=== PATIENT | female | born 1935 | race Caucasian/White ===

== ENCOUNTER 2016-10-28 07:53 | Observation (INO) | payer MEDICARE, BC ==
[~2016-10-28] VITALS: Ht 157.5 cm; Wt 62.0 kg
[~2016-10-28 07:53] MED LIST: ASPI81 PO; CORE20CA PO; DIAZ5TAB PO; HYDRO10 PO; LEVO.1 PO; LIBRAX PO; LIOT5TAB PO; LORTA5 PO; MECL25CH PO; REME15TA PO; SUMA100T2 PO; TROS60CA PO; WELL150T PO; ZOLO50TA PO; ZOLP5TAB3 PO
[2016-10-28 08:03] VITALS: BP 158/91; PULSE 75; RESP 18; TEMP 98.1; O2SAT 98
--- NOTE | 2016-10-28 08:06 | PD ---
HPI Chief Complaint: General Weakness Time Seen by Provider: 07:56 Travel History International Travel<30 days: No Contact w/Intl Traveler<30days: No Traveled to known affect area: No History of Present Illness HPI Patient is an 79-year-old female brought in by EMS for generalized weakness. Patient's chief complaint is that she's had "the worst flu of her life". Patient states that she's been feeling rundown for the past few days went to the pharmacy and stated that she couldn't take the medicine because she spent more than 2 days of symptoms. States she's been having some cough and congestion but no fevers. Denies any chest pain abdominal pain. Patient states that she went to get up off her couch were slept last night and was unable to walk and called 911. Patient also has some bruising on the left side of her face and when asked about this states that she was walking her dog last night of the night before and her dog pulled her and she tripped and fell face first onto the ground. She did not see a physician for this denies any loss of consciousness. Patient on arrival just states that "I have the worst flu of my life" and I feel very weak. PFSH Past Medical History Hx Anticoagulant Therapy: Yes Asthma: Yes Autoimmune Disease: No Blood Disorders: No Anxiety: Yes Depression: Yes Heart Rhythm Problems: No Cancer: No Cardiac Catheterization: Yes Cardiovascular Problems: Yes High Cholesterol: No Chemotherapy: No Chest Pain: Yes Congestive Heart Failure: No COPD: No Diabetes: No Diminished Hearing: No Diverticulitis: Yes Endocrine: Yes Gastrointestinal Disorders: Yes GERD: Yes Hypertension: Yes Immune Disorder: No Implanted Vascular Access Dvce: No Musculoskeletal: Yes (spinal stenosis, chronic back pain) Neurologic: No Psychiatric: Yes (PTSD) Reproductive: No Respiratory: Yes Myocardial Infarction: No Radiation Therapy: No Sleep Apnea: No Thyroid Disease: Yes (HYPO) Menopausal: Yes Past Surgical History Abdominal Surgery: Yes (COLON RESECTION) Appendectomy: Yes Cholecystectomy: No Genitourinary Surgery: Yes (BLADDER SLING) Gynecologic Surgery: Yes (HYSTERECTEMY) Hysterectomy: Yes Neurologic Surgery: Yes (FUSION C5-C6) Other Surgery: Yes (appendectomy ) Social History Alcohol Use: No (PT DENIES) Tobacco Use: No (PT DENIES) Substance Use: No Allergies-Medications (Allergen,Severity, Reaction): Coded Allergies: Gluten (Verified Allergy, Severe, Cramping, 10/28/16) PT DESCRIBES SEVERE STOMACH CRAMPS AFTER EATING GLUTEN Dairy (Verified Allergy, Mild, Diarrhea, 10/28/16) Demerol (Verified Adverse Reaction, Mild, nausea, 10/28/16) Reported Meds & Prescriptions Reported Meds & Active Scripts Active Hydrocodone/Acetaminophen 5 mg/325 mg 1 Tab Tab 1 Tab PO Q6H PRN Reported Cyproheptadine (Cyproheptadine HCl) 4 Mg Tab 4 Mg PO HS Remeron 15 mg (Mirtazapine) 15 Mg Tab 1 Tab PO HS Diazepam 5 mg (Diazepam) 5 Mg Tab 1 Tab PO DAILY Liothyronine Sodium 5 Mcg Tab 5 Mcg PO DAILY Meclizine Hcl25 M3 25 Mg Chw 12.5 Mg PO Q8H PRN Trospium Chloride ER (Trospium Chloride) 60 Mg Cap 60 Mg PO DAILY Zolpidem Tartrate 5 Mg Tab 5 Mg PO HS Zoloft (Sertraline HCl) 50 Mg Tab 50 Mg PO DAILY Imitrex (Sumatriptan Succinate) 100 Mg Tab 100 Mg PO DIRECTED Synthroid 100 mcg (Levothyroxine Sodium) 100 Mcg Tab 100 Mcg PO DAILY Review of Systems Except as stated in HPI: all other systems reviewed are Neg Physical Exam Narrative GENERAL: Well-developed thin appears pale but in no apparent distress. Obvious bruising the left side of the face. SKIN: Warm and dry. HEAD: No dukes sign there is periorbital ecchymosis which is already healing on the left side on the forehead and on her left cheek. Normocephalic. No laceration. EYES: Pupils equal and round. No scleral icterus. No injection or drainage. ENT: No nasal bleeding or discharge. Mucous membranes pink and moist. NECK: Trachea midline. No JVD. CARDIOVASCULAR: Regular rate and rhythm. RESPIRATORY: No accessory muscle use. Clear to auscultation. Breath sounds equal bilaterally. GASTROINTESTINAL: Abdomen soft, non-tender, nondistended. Hepatic and splenic margins not palpable. MUSCULOSKELETAL: Extremities without clubbing, cyanosis, or edema. No obvious deformities. NEUROLOGICAL: Awake and alert. No obvious cranial nerve deficits. Motor grossly within normal limits. Five out of 5 muscle strength in the arms and legs. Normal speech. PSYCHIATRIC: Appropriate mood and affect; insight and judgment normal. Data Data Last Documented VS Vital Signs Date Time Temp Pulse Resp B/P Pulse Ox O2 Delivery O2 Flow Rate FiO2 10/28/16 08:09 98.1 70 18 158/91 100 Room Air Orders Electrocardiogram (10/28/16 08:02) Complete Blood Count With Diff (10/28/16 08:02) Comprehensive Metabolic Panel (10/28/16 08:02) Creatine Kinase (Cpk) (10/28/16 08:02) Prothrombin Time / Inr (Pt) (10/28/16 08:02) Act Partial Throm Time (Ptt) (10/28/16 08:02) Troponin I (10/28/16 08:02) Thyroid Stimulating Hormone (10/28/16 08:02) Urinalysis - C+S If Indicated (10/28/16 08:02) Chest, Single Ap (10/28/16 08:02) Blood Glucose (10/28/16 08:02) Ecg Monitoring (10/28/16 08:02) Iv Access Insert/Monitor (10/28/16 08:02) Oximetry (10/28/16 08:02) Sodium Chloride 0.9% Flush (Ns Flush) (10/28/16 08:15) Ct Brain W/O Iv Contrast(Rout) (10/28/16 ) Ct Cerv Spine W/O Contrast (10/28/16 ) Sodium Chlor 0.9% 1000 Ml Inj (Ns 1000 M (10/28/16 09:00) Cath For Specimen (10/28/16 08:54) Dexamethasone Inj (Decadron Inj) (10/28/16 09:45) Levothyroxine (Synthroid) (10/28/16 09:45) Potassium Chloride (Kcl) (10/28/16 09:45) Free T3 (10/28/16 09:59) Free Thyroxine (T4) (10/28/16 09:59) Diet Heart Healthy (10/28/16 Lunch) Vital Signs (Adult) SUZANNE.Q4H (10/28/16 10:16) Consult Pt Eval & Treat (10/28/16 10:16) Case Management Consult (10/28/16 ) Ondansetron Inj (Zofran Inj) (10/28/16 10:30) Acetaminophen (Tylenol) (10/28/16 10:30) Admit Order (Ed Use Only) (10/28/16 ) Labs Laboratory Tests Test 10/28/16 10/28/16 08:15 09:05 White Blood Count 8.3 TH/MM3 Red Blood Count 3.75 MIL/MM3 Hemoglobin 11.4 GM/DL Hematocrit 31.8 % Mean Corpuscular Volume 84.9 FL Mean Corpuscular Hemoglobin 30.4 PG Mean Corpuscular Hemoglobin 35.8 % Concent Red Cell Distribution Width 18.4 % Platelet Count 151 TH/MM3 Mean Platelet Volume 9.2 FL Neutrophils (%) (Auto) 92.3 % Lymphocytes (%) (Auto) 4.2 % Monocytes (%) (Auto) 3.1 % Eosinophils (%) (Auto) 0.0 % Basophils (%) (Auto) 0.4 % Neutrophils # (Auto) 7.6 TH/MM3 Lymphocytes # (Auto) 0.3 TH/MM3 Monocytes # (Auto) 0.3 TH/MM3 Eosinophils # (Auto) 0.0 TH/MM3 Basophils # (Auto) 0.0 TH/MM3 CBC Comment DIFF FINAL Differential Comment Prothrombin Time 10.8 SEC Prothromb Time International 1.0 RATIO Ratio Activated Partial 24.6 SEC Thromboplast Time Sodium Level 141 MEQ/L Potassium Level 2.9 MEQ/L Chloride Level 111 MEQ/L Carbon Dioxide Level 20.9 MEQ/L Anion Gap 9 MEQ/L Blood Urea Nitrogen 12 MG/DL Creatinine 1.27 MG/DL Estimat Glomerular Filtration 40 ML/MIN Rate Random Glucose 111 MG/DL Calcium Level 8.7 MG/DL Total Bilirubin 0.5 MG/DL Aspartate Amino Transf 18 U/L (AST/SGOT) Alanine Aminotransferase 21 U/L (ALT/SGPT) Alkaline Phosphatase 66 U/L Total Creatine Kinase 125 U/L Troponin I LESS THAN 0.02 NG/ML Total Protein 6.4 GM/DL Albumin 3.6 GM/DL Free Thyroxine 0.96 NG/DL Free Triiodothyronine (T3) 1.29 PG/ML pg/dL Thyroid Stimulating Hormone 23.700 uIU/ML 3rd Gen Urine Color LIGHT-YELLOW Urine Turbidity CLEAR Urine pH 7.0 Urine Specific [place] 1.004 Urine Protein NEG mg/dL Urine Glucose (UA) NEG mg/dL Urine Ketones NEG mg/dL Urine Occult Blood NEG Urine Nitrite NEG Urine Bilirubin NEG Urine Urobilinogen LESS THAN 2.0 MG/DL Urine Leukocyte Esterase NEG Microscopic Urinalysis Comment CATH-CULT NOT IND MDM Medical Decision Making Medical Screen Exam Complete: Yes Emergency Medical Condition: Yes Interpretation(s) EKG shows sinus rhythm first-degree block with a IN interval of 216. Dilatation V1 limited secondary to motion artifact, normal axis with late R- wave transition. T-wave inversion in V6 Which is new compared to October 2015. This an abnormal EKG. Differential Diagnosis Closed head injury, neck injury, hypothyroidism, electrolyte abnormality, generalized weakness, anemia. Narrative Course Patient was roomed in the emergency department, she is very mildly altered and was seen interacting with unseen stimuli in the room. TSH is elevated vital signs remained stable while in the emergency department. Patient states she's been taking his Synthroid but her physician decreased her dose approximately 3 weeks ago. EMS had to express concerns about safety at home and set her house was in disarray. Patient does have a healing bruise left side of her face but states she's fell yesterday and I have concerns that her history may be limited by her mental status. CT head and C-spine are negative. 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 Turk Diagnosis Primary Impression: Altered mental status Qualified Code: R41.82 - Altered mental status, unspecified altered mental status type Additional Impressions: Weakness Fatigue Qualified Code: R53.83 - Fatigue, unspecified type Hypothyroidism Qualified Code: E03.9 - Hypothyroidism, unspecified type Admitting Information Admitting Physician Requests: Observation Condition: Stable Marty Montalvo MD Oct 28, 2016 08:06
[2016-10-28 08:09] VITALS: BP 158/91; PULSE 70; PULSE 80; RESP 18; TEMP 98.1; O2SAT 100; O2SAT 99
[2016-10-28 08:39] LABS: AUTOMATED NEUTROPHIL # 7.6 TH/MM3 (1.8-7.7); BASOPHIL % 0.4 % (0.0-2.0); HEMATOCRIT 31.8 % (35.0-46.0); HEMO FLAGS DIFF FINAL; LYMPH % 4.2 % (9.0-44.0); LYMPHOCYTE # 0.3 TH/MM3 (1.0-4.8); MEAN CELL VOLUME 84.9 FL (80.0-100.0); MEAN CORPUSCULAR HEMOGLOBIN 30.4 PG (27.0-34.0); MEAN CORPUSCULAR HGB CONC 35.8 % (32.0-36.0); MONO % 3.1 % (0.0-8.0); NEUT % 92.3 % (16.0-70.0); PLATELET COUNT 151 TH/MM3 (150-450); RED BLOOD COUNT 3.75 MIL/MM3 (4.00-5.30); RED CELL DISTRIBUTION WIDTH 18.4 % (11.6-17.2); WHITE BLOOD COUNT 8.3 TH/MM3 (4.0-11.0)
--- NOTE | 2016-10-28 08:50 | RADRPT ---
EXAM DATE/TIME: 10/28/2016 08:09 [facility] COMPARISON: CHEST SINGLE AP, October 07, 2015, 6:03. INDICATIONS : Cough, weakness, fell today MEDICAL HISTORY : Cardiovascular disease. hypertension, asthma SURGICAL HISTORY : appendectomy, hysterectomy, colon resection, cervical fusion ENCOUNTER: Initial ACUITY: 1 day PAIN SCORE: 0/10 LOCATION: Bilateral chest FINDINGS: A single view of the chest demonstrates the lungs to be symmetrically aerated without evidence of mas s, infiltrate or effusion. The cardiomediastinal contours are unremarkable. Osseous structures are intact. CONCLUSION: Normal examination. Charli Dodd MD on October 28, 2016 at 8:48 Board Certified Radiologist. This report was verified electronically.
[2016-10-28 08:58] LABS: APTT (PATIENT) 24.6 SEC (24.3-30.1); PROTHROMBIN TIME - PATIENT 10.8 SEC (9.8-11.6)
[2016-10-28] MEDS ORDERED: SODIUM CHLOR 0.9% 1000 ML INJ 1,000 ML IV ONE (09:00)
[2016-10-28 09:07] LABS: ALKALINE PHOSPHATASE 66 U/L (45-117); ALT (GPT) 21 U/L (10-53); ANION GAP 9 MEQ/L (5-15); AST (GOT) 18 U/L (15-37); BICARBONATE 20.9 MEQ/L (21.0-32.0); BLOOD UREA NITROGEN 12 MG/DL (7-18); CHLORIDE 111 MEQ/L (98-107); CREATINE KINASE 125 U/L (26-192); GLOMERULAR FILTRATION RATE 40 ML/MIN (>89); SODIUM (NA) 141 MEQ/L (136-145); TOTAL BILIRUBIN ADULT 0.5 MG/DL (0.2-1.0)
[2016-10-28 09:09] LABS: POTASSIUM 2.9 MEQ/L (3.5-5.1)
--- NOTE | 2016-10-28 09:15 | RADRPT ---
EXAM DATE/TIME: 10/28/2016 08:31 [facility] COMPARISON: No previous studies available for comparison. INDICATIONS : Trauma. RADIATION DOSE: 56.35 CTDIvol (mGy) MEDICAL HISTORY : Cardiovascular disease. Hypertension. SURGICAL HISTORY : Fusion, cervical. ENCOUNTER: Initial ACUITY: 1 day PAIN SCALE: 0/10 LOCATION: Cranial TECHNIQUE: Multiple contiguous axial images were obtained of the head. Using automated exposure control and adj ustment of the mA and/or kV according to patient size, radiation dose was kept as low as reasonably a chievable to obtain optimal diagnostic quality images. FINDINGS: Noncontrast head CT demonstrates that there is diffuse atrophy present. There is some enlargement of the ventricular system and ischemic demyelinization change bilaterally. It is diffuse and symmetric. No subarachnoid or subdural hematoma is identified. No new areas of encephalomala luis are seen. Bone windows are negative. Sinuses are clear. CONCLUSION: Diffuse atrophy and ischemic demyelinization. Stable since 10/07/15. Charli Dodd MD on October 28, 2016 at 9:01 Board Certified Radiologist. This report was verified electronically.
[2016-10-28 09:39] LABS: BLOOD, URINE NEG (NEG); GLUCOSE,URINE NEG (NEG); KETONE, URINE NEG (NEG); NITRITE,URINE NEG (NEG); URINE COLOR LIGHT-YELLOW (YELLW/STRAW)
[2016-10-28 09:40] LABS: COMMENT (UR) CATH-CULT NOT IND; CULTURE IF INDICATED CATH CULTURE NOT IND
[2016-10-28] MEDS ORDERED: LEVOTHYROXINE SODIUM 100 MCG TAB PO ONE (09:45)
[2016-10-28] MEDS ORDERED: POTASSIUM CHLORIDE 20 MEQ CONTROLLED RELEASE TAB PO ONE ×2 (09:45→13:00)
[2016-10-28] MEDS ORDERED: DEXAMETHASONE SOD PHOS 4 MG/ML VIAL IV PUSH ONE (09:45)
--- NOTE | 2016-10-28 09:53 | RADRPT ---
EXAM DATE/TIME: 10/28/2016 08:31 [facility] COMPARISON: Prior study of November 2014 used for comparison. INDICATIONS : Trauma. Neck pain. RADIATION DOSE: 21.97 CTDIvol (mGy) MEDICAL HISTORY : Cardiovascular disease. Hypertension. SURGICAL HISTORY : Fusion, cervical. ENCOUNTER: Initial ACUITY: 1 day PAIN SCALE: 0/10 LOCATION: Neck TECHNIQUE: Volumetric scanning of the cervical spine was performed. Multiplanar reconstructions in the sagittal, coronal and oblique axial planes were performed. Using automated exposure control and adjustment o f the mA and/or kV according to patient size, radiation dose was kept as low as reasonably achievable to obtain optimal diagnostic quality images. FINDINGS: CT scan of the cervical spine demonstrates that the patient has had previous anterior cervical fusion of C5-C6. There is persistent anterior spondylolisthesis of C3 on C4 and to a lesser extent of C4 o n C5. There is some calcification of the annular ligaments. There is extensive calcification of the transverse ligament. On the right side, there is extensive fusion of the facet joints including right 4-5 and right 2-3. There is a mild leftward scoliosis of the cervical spine. The facet joints are well aligned without evidence of fracture. Soft tissue windows demonstrate no disc herniation or protrusion. The cord is normal in shape. CONCLUSION: The patient has extensive degenerative disc disease with subluxation, stable since November 2014. No ac [place] fracture or endplate injury is identified. No acute fracture is seen.. Charli Dodd MD on October 28, 2016 at 9:03 Board Certified Radiologist. This report was verified electronically.
[2016-10-28] MEDS ORDERED: ACETAMINOPHEN 325 MG TAB PO PRN (10:30)
[2016-10-28] MEDS ORDERED: ONDANSETRON HCL 4 MG/2 ML VIAL IV PUSH PRN (10:30)
[2016-10-28 11:28] LABS: FREE T3 1.29 PG/ML (2.18-3.98); FREE T4 0.96 NG/DL (0.76-1.46)
--- NOTE | 2016-10-28 11:53 | HHI.HP ---
[facility] Service [facility] Primary Care Physician Ramiro Bunch M.D. Admission Diagnosis Hypothryoidism, Altered mental status. Diagnoses: (1) Generalized weakness Diagnosis: Principal (2) Hypokalemia Diagnosis: Principal Chief Complaint: genarlized weakness Travel History International Travel<30 Days: No Contact w/Intl Traveler <30 Da: No Traveled to Known Affected Are: No History of Present Illness patient is a 81 y/o female who presented to ER with generalized weakness. she says that she wasn't able to get up this morning . she says that she normally walks with a cane. she lives alone. she says that three days ago when she was trying to walk her dog, her dog pulled her and she hit her head to the corner of the wall. at the time of my evaluation she was in no acute distress with no reported pain, sob, abdominal pain, chest pain or nausea. Review of Systems Constitutional: COMPLAINS OF: Fatigue, DENIES: Fever, Weight loss, Chills, Night Sweats Eyes: DENIES: Blurred vision, Diplopia, Vision loss, Double Vision Ears, nose, mouth, throat: DENIES: Tinnitus, Vertigo, Throat pain, Epistaxis Respiratory: DENIES: Apneas, Cough, Snoring, Wheezing, Hemoptysis, Sputum production, Shortness of breath Cardiovascular: DENIES: Chest pain, Palpitations, Syncope, Dyspnea on Exertion , PND, Lower Extremity Edema, Orthopnea, Claudication Gastrointestinal: DENIES: Abdominal pain, Black stools, Bloody stools, Constipation, Diarrhea, Nausea, Vomiting, Difficulty Swallowing, Anorexia Genitourinary: DENIES: Urinary frequency, Urgency, Hematuria, Dysuria Musculoskeletal: DENIES: Joint pain, Muscle aches, Stiffness, Joint Swelling Integumentary: DENIES: Rash Neurologic: DENIES: Abnormal gait, Headache, Localized weakness, Paresthesias, Seizures, Speech Problems, Tremor, Poor Balance Psychiatric: DENIES: Anxiety, Confusion, Mood changes, Depression, Hallucinations, Agitation, Suicidal Ideation, Homicidal Ideation, Delusions Past Family Social History Past Medical History Adrenal insufficiency Hypothyroidism Hypertension Asthma Chronic urinary incontinence IBS Anxiety/depression Migraines Past Surgical History Past Surgical History Colectomy, patient states secondary to a "blockage" in the past Appendectomy Hysterectomy Bladder sling placement and removal Cervical fusion Reported Medications Cortef (Hydrocortisone) 10 Mg Tab 5 Mg PO HS 30 Days Cortef (Hydrocortisone) 10 Mg Tab 10 Mg PO DAILY 30 Days Hydrocodone/Acetaminophen 5 mg/325 mg 1 Tab Tab 1 Tab PO Q6H PRN Librax (Chlordiazepoxide/Clidinium) 5 Mg Cap 2.5 Cap PO QID Remeron 15 mg (Mirtazapine) 15 Mg Tab 1 Tab PO HS Diazepam 5 mg (Diazepam) 5 Mg Tab 1 Tab PO DAILY Liothyronine Sodium 5 Mcg Tab 5 Mcg PO DAILY Meclizine Hcl (Meclizine HCl) 25 Mg Chw 12.5 Mg PO Q8H PRN Trospium Chloride ER (Trospium Chloride) 60 Mg Cap 60 Mg PO DAILY Zolpidem Tartrate 5 Mg Tab 5 Mg PO HS Coreg CR 20 mg (Carvedilol CR 20 mg) 20 Mg Cap 1 Cap PO DAILY Wellbutrin Sr (Bupropion HCl) 150 Mg Tab 150 Mg PO BID Zoloft (Sertraline HCl) 50 Mg Tab 50 Mg PO DAILY Imitrex (Sumatriptan Succinate) 100 Mg Tab 100 Mg PO DIRECTED Aspirin 81 Mg Tab 81 Mg PO DAILY Synthroid 100 mcg (Levothyroxine Sodium) 100 Mcg Tab 100 Mcg PO DAILY Allergies: Coded Allergies: Gluten (Verified Allergy, Severe, Cramping, 10/28/16) PT DESCRIBES SEVERE STOMACH CRAMPS AFTER EATING GLUTEN Dairy (Verified Allergy, Mild, Diarrhea, 10/28/16) Demerol (Verified Adverse Reaction, Mild, nausea, 10/28/16) Active Ordered Medications Current Medications IV Flush 2 ml 2 ml UNSCH PRN IVF FLUSH AFTER USING IV ACCESS; Start 10/28/16 at 08:15 Sodium Chloride (NS 1000 ml Inj) 1,000 ml @ 999 mls/hr BOLUS ONCE IV Last administered on 10/28/16 10:25; Start 10/28/16 at 09:00; Stop 10/28/16 at 10:00 ; Status DC Dexamethasone Sodium Phosphate (Decadron Inj) 8 mg ONCE ONCE IV PUSH Last administered on 10/28/16 10:25; Start 10/28/16 at 09:45; Stop 10/28/16 at 09:46 ; Status DC Levothyroxine Sodium (Synthroid) 100 mcg ONCE ONCE PO Last administered on 10:26; Start 10/28/16 at 09:45; Stop 10/28/16 at 09:46; Status DC Potassium Chloride (KCl) 40 meq ONCE ONCE PO Last administered on 10/28/16 10 :26; Start 10/28/16 at 09:45; Stop 10/28/16 at 09:46; Status DC Ondansetron HCl (Zofran Inj) 4 mg Q8HR PRN IV PUSH NAUSEA; Start 10/28/16 at 10 :30 Acetaminophen (Tylenol) 650 mg Q4H PRN PO FEVER; Start 10/28/16 at 10:30 Family History not relevant to this admission. Social History lives alone. no smoking or drinking. Physical Exam Vital Signs Vital Signs Date Time Temp Pulse Resp B/P Pulse Ox O2 Delivery O2 Flow Rate FiO2 10/28/16 08:09 98.1 70 18 158/91 100 Room Air 10/28/16 08:09 98.1 80 18 158/91 99 Room Air 10/28/16 08:09 80 20 98 Room Air 10/28/16 08:03 98.1 75 18 158/91 98 Physical Exam GENERAL: elderly female, in no apparent distress. SKIN: bruise noted on the left periorbital area HEAD:left periorbital ecchymosis EYES: Pupils equal round and reactive. Extraocular motions intact. No scleral icterus. No injection or drainage. ENT: Nose without bleeding, purulent drainage or septal hematoma. Throat without erythema, tonsillar hypertrophy or exudate. Uvula midline. Airway patent. NECK: Trachea midline. No JVD or lymphadenopathy. Supple, nontender, no meningeal signs. CARDIOVASCULAR: Regular rate and rhythm without murmurs, gallops, or rubs. RESPIRATORY: Clear to auscultation. Breath sounds equal bilaterally. No wheezes , rales, or rhonchi. GASTROINTESTINAL: Abdomen soft, non-tender, nondistended. No hepato-splenomegaly , or palpable masses. No guarding. MUSCULOSKELETAL: Extremities without clubbing, cyanosis, or edema. No joint tenderness, effusion, or edema noted. No calf tenderness. Negative Homans sign bilaterally. NEUROLOGICAL: Awake and alert. oriented to person and place but not to time. Laboratory Laboratory Tests Test 10/28/16 10/28/16 08:15 09:05 White Blood Count 8.3 Red Blood Count 3.75 Hemoglobin 11.4 Hematocrit 31.8 Mean Corpuscular Volume 84.9 Mean Corpuscular Hemoglobin 30.4 Mean Corpuscular Hemoglobin 35.8 Concent Red Cell Distribution Width 18.4 Platelet Count 151 Mean Platelet Volume 9.2 Neutrophils (%) (Auto) 92.3 Lymphocytes (%) (Auto) 4.2 Monocytes (%) (Auto) 3.1 Eosinophils (%) (Auto) 0.0 Basophils (%) (Auto) 0.4 Neutrophils # (Auto) 7.6 Lymphocytes # (Auto) 0.3 Monocytes # (Auto) 0.3 Eosinophils # (Auto) 0.0 Basophils # (Auto) 0.0 CBC Comment DIFF FINAL Differential Comment Prothrombin Time 10.8 Prothromb Time International 1.0 Ratio Activated Partial 24.6 Thromboplast Time Sodium Level 141 Potassium Level 2.9 Chloride Level 111 Carbon Dioxide Level 20.9 Anion Gap 9 Blood Urea Nitrogen 12 Creatinine 1.27 Estimat Glomerular Filtration 40 Rate Random Glucose 111 Calcium Level 8.7 Total Bilirubin 0.5 Aspartate Amino Transf 18 (AST/SGOT) Alanine Aminotransferase 21 (ALT/SGPT) Alkaline Phosphatase 66 Total Creatine Kinase 125 Troponin I LESS THAN 0.02 Total Protein 6.4 Albumin 3.6 Free Thyroxine 0.96 Free Triiodothyronine (T3) 1.29 pg/dL Thyroid Stimulating Hormone 23.700 3rd Gen Urine Color LIGHT-YELLOW Urine Turbidity CLEAR Urine pH 7.0 Urine Specific [place] 1.004 Urine Protein NEG Urine Glucose (UA) NEG Urine Ketones NEG Urine Occult Blood NEG Urine Nitrite NEG Urine Bilirubin NEG Urine Urobilinogen LESS THAN 2.0 Urine Leukocyte Esterase NEG Microscopic Urinalysis Comment CATH-CULT NOT IND Result Diagram: 10/28/16 0815 10/28/16 0815 Imaging Last Impressions Chest X-Ray 10/28/16 0802 Signed Impressions: Service Date/Time: Friday, October 28, 2016 08:09 - CONCLUSION: Normal examination. Charli Dodd MD Head CT 10/28/16 0000 Signed Impressions: Service Date/Time: Friday, October 28, 2016 08:31 - CONCLUSION: Diffuse atrophy and ischemic demyelinization. Stable since 10/07/15. Charli Dodd MD Cervical Spine CT 10/28/16 0000 Signed Impressions: Service Date/Time: Friday, October 28, 2016 08:31 - CONCLUSION: The patient has extensive degenerative disc disease with subluxation, stable since November 2014. No acute fracture or endplate injury is identified. No acute fracture is seen.. Charli Dodd MD EKG; sinus rhythm with first-degree AV block. Assessment and Plan Assessment and Plan A/P - generalized weakness with recent fall fall precautions- consult PT and case management -hypokalemia; will replace and monitor -Adrenal insufficiency; resume cortef -Hypothyroidism with elevated TSH- due to noncompliance?- resume home meds- repeat TSH in 4 weeks -Hypertension; resume coreg- will monitor and adjust the regimen as needed. -Asthma- neb treatment as needed. -Anxiety/depression; resume home meds hold diazepam and librax -DVT prophylaxis with SCD's Discussed Condition With ER physician and the patient. Laurie Rahman MD Oct 28, 2016 11:53
[2016-10-28] MEDS ORDERED: ACETAMINOPHEN/HYDROcodone 325 MG/5 MG TAB PO PRN (12:00)
[2016-10-28 12:32] VITALS: BP 138/82
[2016-10-28] MEDS ORDERED: CYPR4TAB PO (14:01)
[2016-10-28 14:04] VITALS: BP 112/57; PULSE 130; RESP 17; TEMP 97.8; O2SAT 96
[2016-10-28] MEDS ORDERED: OMEP20CA2 PO (14:06)
[2016-10-28] MEDS ORDERED: TROS60CA2 PO (14:06)
[2016-10-28] MEDS ORDERED: SYNT88TA PO (14:06)
[2016-10-28] MEDS ORDERED: BECL80AE3 INH (14:06)
[2016-10-28] MEDS ORDERED: ZOLP5TAB3 PO (14:06)
[2016-10-28] MEDS ORDERED: TYLETAB34 PO (14:06)
[2016-10-28] MEDS ORDERED: IMIT100T PO (14:06)
[2016-10-28] MEDS ORDERED: ZOLO50TA PO (14:12)
[2016-10-28] MEDS ORDERED: LIOT5TAB3 PO (14:12)
[2016-10-28] MEDS ORDERED: CORT5TAB PO ×3 (14:12)
[2016-10-28] MEDS ORDERED: HYDR-3535 PO (14:12)
[2016-10-28] MEDS ORDERED: DIAZ5 PO (14:12)
[2016-10-28] MEDS ORDERED: MIRTA15 PO (14:12)
[2016-10-28] MEDS ORDERED: MECL1TAB42 PO (14:12)
[2016-10-28] MEDS ORDERED: BUPR150CR PO (14:16)
[2016-10-28] MEDS ORDERED: ASPI1TAB69 PO (14:16)
[2016-10-28] MEDS ORDERED: CARV20 PO (14:16)
--- NOTE | 2016-10-28 14:50 | EKG ---
Date Performed: 10/28/2016 Time Performed: 09:16:48 PTAGE: 81 years EKG: Sinus rhythm WITH FIRST DEGREE AV BLOCK ANTEROSEPTAL MYOCARDIAL INFARCTION MODERATE T-WAVE ABNORMALITY, CONSIDER LATERAL ISCHEMIA ABNORMAL ECG Compared to the PREVIOUS TRACING , the anterolateral ST-T wave changes are new. Clinical correlation daija l be important. PREVIOUS TRACIN11/24/2015 18.51 DOCTOR: Marlen Barker Interpretating Date/Time 10/28/2016 14:48:16
[2016-10-28 18:59] VITALS: BP 114/61; PULSE 69; RESP 17; TEMP 97.6; O2SAT 100
[2016-10-28] MEDS: MIRTAZAPINE 15 MG TAB PO SCH (21:00)
[2016-10-28] MEDS ORDERED: PILL SPLITTER OTHER PRN (21:00)
[2016-10-28] MEDS: buPROPion HCL 150 MG SUSTAINED RELEASE TAB PO SCH (21:00)
[2016-10-28] MEDS: HYDROCORTISONE 10 MG TAB PO SCH (21:00)
[2016-10-29 04:18] VITALS: BP 138/59; PULSE 62; RESP 14; TEMP 97.3; O2SAT 100
[2016-10-29] MEDS: LEVOTHYROXINE SODIUM 100 MCG TAB PO SCH (06:15)
[2016-10-29 06:55] LABS: BICARBONATE 18.9 MEQ/L (21.0-32.0)
[2016-10-29 07:01] LABS: POTASSIUM 2.8 MEQ/L (3.5-5.1)
[2016-10-29 08:36] VITALS: BP 162/68; PULSE 69; RESP 20; TEMP 97.9; O2SAT 95
[2016-10-29] MEDS: HYDROCORTISONE 10 MG TAB PO SCH ×2 (08:40→22:30)
[2016-10-29] MEDS: buPROPion HCL 150 MG SUSTAINED RELEASE TAB PO SCH ×2 (08:40→22:31)
[2016-10-29] MEDS: SODIUM CHLORIDE 0.9% FLUSH 5 ML FLUSH IVF PRN (08:40)
[2016-10-29] MEDS: SERTRALINE HCL 50 MG TAB PO SCH (08:40)
[2016-10-29] MEDS: TOLTERODINE TARTRATE 4 MG CAP LA PO SCH (08:40)
[2016-10-29] MEDS: LIOTHYRONINE SODIUM 5 MCG TAB PO SCH (08:40)
[2016-10-29] MEDS: CARVEDILOL 6.25 MG TAB PO SCH ×2 (08:40→22:30)
--- NOTE | 2016-10-29 10:55 | HHI.PR ---
Subjective Remarks in no acute distress. denies pain. no new complaints. Objective Vitals Vital Signs Date Time Temp Pulse Resp B/P Pulse Ox O2 Delivery O2 Flow Rate FiO2 10/29/16 08:36 97.9 69 20 162/68 95 10/29/16 04:18 97.3 62 14 138/59 100 10/28/16 18:59 97.6 69 17 114/61 100 10/28/16 14:04 97.8 130 17 112/57 96 10/28/16 12:32 86 18 138/82 98 Result Diagram: 10/28/16 0815 10/29/16 0533 Imaging Last Impressions Chest X-Ray 10/28/16 0802 Signed Impressions: Service Date/Time: Friday, October 28, 2016 08:09 - CONCLUSION: Normal examination. Charli Dodd MD Head CT 10/28/16 0000 Signed Impressions: Service Date/Time: Friday, October 28, 2016 08:31 - CONCLUSION: Diffuse atrophy and ischemic demyelinization. Stable since 10/07/15. Charli Dodd MD Cervical Spine CT 10/28/16 0000 Signed Impressions: Service Date/Time: Friday, October 28, 2016 08:31 - CONCLUSION: The patient has extensive degenerative disc disease with subluxation, stable since November 2014. No acute fracture or endplate injury is identified. No acute fracture is seen.. Charli Dodd MD Objective Remarks GENERAL: This is a well-nourished, well-developed patient, in no apparent distress. CARDIOVASCULAR: Regular rate and regular rhythm without murmurs, gallops, or rubs. RESPIRATORY: Clear to auscultation. Breath sounds equal bilaterally. No wheezes , rales, or rhonchi. GASTROINTESTINAL: Abdomen soft, non-tender, nondistended. Normal, active bowel sounds MUSCULOSKELETAL: Extremities without clubbing, cyanosis, or edema. NEURO: awake and alert. Procedures none Medications and IVs Current Medications IV Flush 2 ml 2 ml UNSCH PRN IVF FLUSH AFTER USING IV ACCESS Last administered on 10/29/16 08:40; Start 10/28/16 at 08:15 Sodium Chloride (NS 1000 ml Inj) 1,000 ml @ 999 mls/hr BOLUS ONCE IV Last administered on 10/28/16 10:25; Start 10/28/16 at 09:00; Stop 10/28/16 at 10:00 ; Status DC Dexamethasone Sodium Phosphate (Decadron Inj) 8 mg ONCE ONCE IV PUSH Last administered on 10/28/16 10:25; Start 10/28/16 at 09:45; Stop 10/28/16 at 09:46 ; Status DC Levothyroxine Sodium (Synthroid) 100 mcg ONCE ONCE PO Last administered on 10:26; Start 10/28/16 at 09:45; Stop 10/28/16 at 09:46; Status DC Potassium Chloride (KCl) 40 meq ONCE ONCE PO Last administered on 10/28/16 10 :26; Start 10/28/16 at 09:45; Stop 10/28/16 at 09:46; Status DC Ondansetron HCl (Zofran Inj) 4 mg Q8HR PRN IV PUSH NAUSEA; Start 10/28/16 at 10 :30 Acetaminophen (Tylenol) 650 mg Q4H PRN PO FEVER/ PAIN < 5; Start 10/28/16 at 10 :30 Potassium Chloride (KCl) 40 meq ONCE ONCE PO Last administered on 10/28/16 14 :00; Start 10/28/16 at 13:00; Stop 10/28/16 at 13:01; Status DC Bupropion HCl (Wellbutrin Sr) 150 mg BID PO Last administered on 10/29/16 08:40 ; Start 10/28/16 at 21:00 Liothyronine Sodium (Cytomel) 5 mcg DAILY PO Last administered on 10/29/16 08: 40; Start 10/29/16 at 09:00 Mirtazapine (Remeron) 15 mg HS PO Last administered on 10/28/16 21:00; Start 10/28/16 at 21:00 Sertraline HCl (Zoloft) 50 mg DAILY PO Last administered on 10/29/16 08:40; Start 10/29/16 at 09:00 Levothyroxine Sodium (Synthroid) 100 mcg DAILY@06 PO Last administered on 06:15; Start 10/29/16 at 06:00 Carvedilol (Coreg) 6.25 mg BID PO Last administered on 10/29/16 08:40; Start at 09:00 Hydrocortisone (Cortef) 5 mg HS PO Last administered on 10/28/16 21:00; Start 10/28/16 at 21:00 Hydrocortisone (Cortef) 10 mg DAILY PO Last administered on 10/29/16 08:40; Start 10/29/16 at 09:00 Tolterodine Tartrate (Detrol La) 4 mg DAILY PO Last administered on 10/29/16 08 :40; Start 10/29/16 at 09:00 Acetaminophen/ Hydrocodone Bitart ([place] 5-325 Mg) 1 tab Q6H PRN PO PAIN >5; Start 10/28/16 at 12:00 Miscellaneous (Pill Splitter) 1 ea UNSCH PRN OTHER SEE LABEL COMMENTS; Start at 21:00 A/P Assessment and Plan A/P - generalized weakness with recent fall fall precautions- consulted PT and case management -hypokalemia; will replace and monitor- check magnesium level -Adrenal insufficiency; resumed cortef -Hypothyroidism with elevated TSH- due to noncompliance?- resumed home meds- repeat TSH in 4 weeks -Hypertension; resumed coreg- will monitor and adjust the regimen as needed. -Asthma- neb treatment as needed. -Anxiety/depression; resumed home meds hold diazepam and librax -DVT prophylaxis with SCD's Discharge Planning possible dc home tomorrow if stable. rehab was offered but the patient declined. case management for [facility]. Laurie Rahman MD Oct 29, 2016 10:55
--- NOTE | 2016-10-29 10:57 | HHI.FF ---
Face to Face Verification Diagnosis: (1) Generalized weakness (2) Hypokalemia Physical Therapy Order: Evaluate and Treat Home Health Nursing Order: Medical education Signs/symptoms of disease process Nursing assessment with vital signs School Bus Aide Order: To Evaluate: Living conditions/environment I have seen patient Pastora Mckeon on 10/29/16. My clinical findings support the need for the requested home health care services because: Ltd mobility - disease progression I certify that my clinical findings support that this patient is homebound because: Unsteady gait/balance Laurie Rahman MD Oct 29, 2016 10:57
[2016-10-29] MEDS ORDERED: SODIUM CHLORID 0.9% 500 ML INJ 500 ML IV ONE (11:00)
[2016-10-29] MEDS ORDERED: POTASSIUM CHLORIDE 10 MEQ CONTROLLED RELEASE TAB PO ONE ×2 (11:00→15:00)
[2016-10-29] MEDS ORDERED: POTASSIUM CHLOR 20 MEQ PREMIX 100 ML IV ONE (11:00)
[2016-10-29 11:53] VITALS: BP 143/64; PULSE 71; RESP 20; TEMP 97; O2SAT 100
[2016-10-29 17:54] VITALS: BP 143/62; PULSE 69; RESP 21; TEMP 98; O2SAT 98
[2016-10-29 20:31] VITALS: BP 115/58; PULSE 75; RESP 18; TEMP 97.5; O2SAT 97
[2016-10-29] MEDS: MIRTAZAPINE 15 MG TAB PO SCH (22:31)
[2016-10-30 00:47] VITALS: BP 118/57; PULSE 67; RESP 16; TEMP 98; O2SAT 97
[2016-10-30] MEDS: LEVOTHYROXINE SODIUM 100 MCG TAB PO SCH (06:09)
[2016-10-30 06:15] VITALS: BP 134/64; PULSE 76; RESP 18; TEMP 97.6; O2SAT 97
[2016-10-30 06:45] LABS: BICARBONATE 20.1 MEQ/L (21.0-32.0); POTASSIUM 3.6 MEQ/L (3.5-5.1)
[2016-10-30] MEDS: buPROPion HCL 150 MG SUSTAINED RELEASE TAB PO SCH (09:41)
[2016-10-30] MEDS: CARVEDILOL 6.25 MG TAB PO SCH (09:41)
[2016-10-30] MEDS: SERTRALINE HCL 50 MG TAB PO SCH (09:41)
[2016-10-30] MEDS: HYDROCORTISONE 10 MG TAB PO SCH (09:41)
[2016-10-30] MEDS: TOLTERODINE TARTRATE 4 MG CAP LA PO SCH (09:41)
[2016-10-30] MEDS: LIOTHYRONINE SODIUM 5 MCG TAB PO SCH (09:41)
[2016-10-30] MEDS: SODIUM CHLORIDE 0.9% FLUSH 5 ML FLUSH IVF PRN (09:42)
--- NOTE | 2016-10-30 11:07 | HHI.PR ---
Subjective Remarks resting comfortably with no distress. denies pain. no new complaints. Objective Vitals Vital Signs Date Time Temp Pulse Resp B/P Pulse Ox O2 Delivery O2 Flow Rate FiO2 10/30/16 06:15 97.6 76 18 134/64 97 10/30/16 00:47 98.0 67 16 118/57 97 10/29/16 20:31 97.5 75 18 115/58 97 10/29/16 17:54 98.0 69 21 143/62 98 10/29/16 11:53 97.0 71 20 143/64 100 Result Diagram: 10/28/16 0815 10/30/16 0537 Imaging Last Impressions Chest X-Ray 10/28/16 0802 Signed Impressions: Service Date/Time: Friday, October 28, 2016 08:09 - CONCLUSION: Normal examination. Charli Dodd MD Head CT 10/28/16 0000 Signed Impressions: Service Date/Time: Friday, October 28, 2016 08:31 - CONCLUSION: Diffuse atrophy and ischemic demyelinization. Stable since 10/07/15. Charli Dodd MD Cervical Spine CT 10/28/16 0000 Signed Impressions: Service Date/Time: Friday, October 28, 2016 08:31 - CONCLUSION: The patient has extensive degenerative disc disease with subluxation, stable since November 2014. No acute fracture or endplate injury is identified. No acute fracture is seen.. Charli Dodd MD Objective Remarks GENERAL: This is a well-nourished, well-developed patient, in no apparent distress. CARDIOVASCULAR: Regular rate and regular rhythm without murmurs, gallops, or rubs. RESPIRATORY: Clear to auscultation. Breath sounds equal bilaterally. No wheezes , rales, or rhonchi. GASTROINTESTINAL: Abdomen soft, non-tender, nondistended. Normal, active bowel sounds MUSCULOSKELETAL: Extremities without clubbing, cyanosis, or edema. NEURO: awake and alert. Procedures none Medications and IVs Current Medications IV Flush 2 ml 2 ml UNSCH PRN IVF FLUSH AFTER USING IV ACCESS Last administered on 10/30/16 09:42; Start 10/28/16 at 08:15 Sodium Chloride (NS 1000 ml Inj) 1,000 ml @ 999 mls/hr BOLUS ONCE IV Last administered on 10/28/16 10:25; Start 10/28/16 at 09:00; Stop 10/28/16 at 10:00 ; Status DC Dexamethasone Sodium Phosphate (Decadron Inj) 8 mg ONCE ONCE IV PUSH Last administered on 10/28/16 10:25; Start 10/28/16 at 09:45; Stop 10/28/16 at 09:46 ; Status DC Levothyroxine Sodium (Synthroid) 100 mcg ONCE ONCE PO Last administered on 10:26; Start 10/28/16 at 09:45; Stop 10/28/16 at 09:46; Status DC Potassium Chloride (KCl) 40 meq ONCE ONCE PO Last administered on 10/28/16 10 :26; Start 10/28/16 at 09:45; Stop 10/28/16 at 09:46; Status DC Ondansetron HCl (Zofran Inj) 4 mg Q8HR PRN IV PUSH NAUSEA; Start 10/28/16 at 10 :30 Acetaminophen (Tylenol) 650 mg Q4H PRN PO FEVER/ PAIN < 5; Start 10/28/16 at 10 :30 Potassium Chloride (KCl) 40 meq ONCE ONCE PO Last administered on 10/28/16 14 :00; Start 10/28/16 at 13:00; Stop 10/28/16 at 13:01; Status DC Bupropion HCl (Wellbutrin Sr) 150 mg BID PO Last administered on 10/30/16 09:41 ; Start 10/28/16 at 21:00 Liothyronine Sodium (Cytomel) 5 mcg DAILY PO Last administered on 10/30/16 09: 41; Start 10/29/16 at 09:00 Mirtazapine (Remeron) 15 mg HS PO Last administered on 10/29/16 22:31; Start at 21:00 Sertraline HCl (Zoloft) 50 mg DAILY PO Last administered on 10/30/16 09:41; Start 10/29/16 at 09:00 Levothyroxine Sodium (Synthroid) 100 mcg DAILY@06 PO Last administered on 06:09; Start 10/29/16 at 06:00 Carvedilol (Coreg) 6.25 mg BID PO Last administered on 10/30/16 09:41; Start at 09:00 Hydrocortisone (Cortef) 5 mg HS PO Last administered on 10/29/16 22:30; Start 10/28/16 at 21:00 Hydrocortisone (Cortef) 10 mg DAILY PO Last administered on 10/30/16 09:41; Start 10/29/16 at 09:00 Tolterodine Tartrate (Detrol La) 4 mg DAILY PO Last administered on 10/30/16 09 :41; Start 10/29/16 at 09:00 Acetaminophen/ Hydrocodone Bitart ([place] 5-325 Mg) 1 tab Q6H PRN PO PAIN >5; Start 10/28/16 at 12:00 Miscellaneous 1 ea 1 ea UNSCH PRN OTHER SEE LABEL COMMENTS; Start 10/28/16 at 21:00 Potassium Chloride (KCl 20 Meq Premix Inj) 100 ml @ 50 mls/hr BOLUS ONCE IV Last administered on 10/29/16 11:37; Start 10/29/16 at 11:00; Stop 10/29/16 at 12: 59; Status DC Potassium Chloride (KCl) 40 meq ONCE ONCE PO Last administered on 10/29/16 11: 38; Start 10/29/16 at 11:00; Stop 10/29/16 at 11:04; Status DC Potassium Chloride 40 meq 40 meq ONCE ONCE PO Last administered on 10/29/16 14 :13; Start 10/29/16 at 15:00; Stop 10/29/16 at 15:01; Status DC Sodium Chloride (NS 500 ml Inj) 500 ml @ 50 mls/hr Q10H ONCE IV Last administered on 10/29/16 11:37; Start 10/29/16 at 11:00; Stop 10/29/16 at 20:59; Status DC A/P Assessment and Plan A/P - generalized weakness with recent fall fall precautions- consulted PT and case management -hypokalemia;replaced. -Adrenal insufficiency; resumed cortef -Hypothyroidism with elevated TSH- due to noncompliance?- resumed home meds- repeat TSH in 4 weeks- f/u as outpatient with pcp. -Hypertension; resumed coreg- will monitor and adjust the regimen as needed. -Asthma- neb treatment as needed. -Anxiety/depression; resumed home meds hold diazepam and librax -DVT prophylaxis with SCD's Discharge Planning dc home with C today. rehab was offered but the patient declined. case management for [facility]. see med list. f/u by pcp. d/w the patient and RN. Laurie Rahman MD Oct 30, 2016 11:06
[2016-10-30] MEDS ORDERED: ASPI1TAB69 PO (11:09)
--- NOTE | 2016-10-30 11:10 | HHI.DS ---
Discharge Summary Admission Date Oct 28, 2016 at 10:42 Discharge Date: Oct 30, 2016 Admitting Diagnosis Hypothryoidism, Altered mental status. (1) Generalized weakness ICD Code: R53.1 Diagnosis: Principal (2) Hypokalemia ICD Code: E87.6 Diagnosis: Principal Procedures none Brief History - From Admission patient is a 81 y/o female who presented to ER with generalized weakness. she says that she wasn't able to get up this morning . she says that she normally walks with a cane. she lives alone. she says that three days ago when she was trying to walk her dog, her dog pulled her and she hit her head to the corner of the wall. at the time of my evaluation she was in no acute distress with no reported pain, sob, abdominal pain, chest pain or nausea. CBC/BMP: 10/28/16 0815 10/30/16 0537 Significant Findings Laboratory Tests Test 10/28/16 10/29/16 10/30/16 08:15 05:33 05:37 Red Blood Count 3.75 MIL/MM3 (4.00-5.30) Hemoglobin 11.4 GM/DL (11.6-15.3) Hematocrit 31.8 % (35.0-46.0) Red Cell Distribution Width 18.4 % (11.6-17.2) Neutrophils (%) (Auto) 92.3 % (16.0-70.0) Lymphocytes (%) (Auto) 4.2 % (9.0-44.0) Lymphocytes # (Auto) 0.3 TH/MM3 (1.0-4.8) Potassium Level 2.9 MEQ/L 2.8 MEQ/L (3.5-5.1) (3.5-5.1) Chloride Level 111 MEQ/L 111 MEQ/L 116 MEQ/L (98-107) (98-107) (98-107) Carbon Dioxide Level 20.9 MEQ/L 18.9 MEQ/L 20.1 MEQ/L (21.0-32.0) (21.0-32.0) (21.0-32.0) Creatinine 1.27 MG/DL (0.50-1.00) Estimat Glomerular Filtration 40 ML/MIN (>89) 54 ML/MIN (>89) 58 ML/MIN (>89) Rate Random Glucose 111 MG/DL (74-106) Troponin I LESS THAN 0.02 NG/ML (0.02-0.05) Free Triiodothyronine (T3) 1.29 PG/ML pg/dL (2.18-3.98) Thyroid Stimulating Hormone 23.700 uIU/ML 3rd Gen (0.358-3.740) Calcium Level 8.2 MG/DL 8.1 MG/DL (8.5-10.1) (8.5-10.1) Imaging Last Impressions Chest X-Ray 10/28/16 0802 Signed Impressions: Service Date/Time: Friday, October 28, 2016 08:09 - CONCLUSION: Normal examination. Charli Dodd MD Head CT 10/28/16 0000 Signed Impressions: Service Date/Time: Friday, October 28, 2016 08:31 - CONCLUSION: Diffuse atrophy and ischemic demyelinization. Stable since 10/07/15. Charli Dodd MD Cervical Spine CT 10/28/16 0000 Signed Impressions: Service Date/Time: Friday, October 28, 2016 08:31 - CONCLUSION: The patient has extensive degenerative disc disease with subluxation, stable since November 2014. No acute fracture or endplate injury is identified. No acute fracture is seen.. Charli Dodd MD PE at Discharge GENERAL: This is a well-nourished, well-developed patient, in no apparent distress. CARDIOVASCULAR: Regular rate and regular rhythm without murmurs, gallops, or rubs. RESPIRATORY: Clear to auscultation. Breath sounds equal bilaterally. No wheezes , rales, or rhonchi. GASTROINTESTINAL: Abdomen soft, non-tender, nondistended. Normal, active bowel sounds MUSCULOSKELETAL: Extremities without clubbing, cyanosis, or edema. NEURO: awake and alert. Hospital Course - generalized weakness with recent fall fall precautions- consulted PT and case management -hypokalemia;replaced. -Adrenal insufficiency; resumed cortef -Hypothyroidism with elevated TSH- due to noncompliance?- resumed home meds- repeat TSH in 4 weeks- f/u as outpatient with pcp. -Hypertension; resumed coreg- will monitor and adjust the regimen as needed. -Asthma- neb treatment as needed. -Anxiety/depression; resumed home meds hold diazepam and librax -DVT prophylaxis with SCD's Pt Condition on Discharge: Good Discharge Disposition: Disch w/ Home Health Serv Discharge Time: <= 30 minutes Discharge Instructions DIET: Follow Instructions for: Heart Healthy Diet Activities you can perform: Regular-No Restrictions Follow up Referrals: PCP Follow-up Changed Medications: Aspirin (Aspirin) 81 Mg Tabdr 81 MG PO DAILY resume in five days. antiplatelet Days 30 TAB (Medication details modified) Continued Medications: Beclomethasone Inh (Qvar Inh) 80 Mcg/Act Aero 1 PUFF INH BID Asthma Management #1 Ref 0 INHALER Bupropion HCl ER 12 HR (Wellbutrin SR 12 HR) 150 Mg Tab 150 MG PO Q12HR Control Depression Ref 0 TAB Carvedilol ER 24 HR (Coreg Cr 24 HR) 20 Mg Cap 20 MG PO DAILY #30 Ref 0 CAP Hydrocodone-Acetaminophen (Lortab) 10-325 Mg Tab 1 TAB PO Q6H PRN MIGRAINE HEADACHE Ref 0 TAB Hydrocortisone (Cortef) 5 Mg Tab 12.5 MG PO DAILY IN THE MORNING Take with food to decrease GI upset ADRENAL INSUFFICIENCY #30 Ref 0 TAB Hydrocortisone (Cortef) 5 Mg Tab 5 MG PO DAILY @ 1200 Take with food to decrease GI upset ADRENAL INSUFFICIENCY # 30 Ref 0 TAB Hydrocortisone (Cortef) 5 Mg Tab 2.5 MG PO HS Take with food to decrease GI upset ADRENAL INSUFFICIENCY #60 Ref 0 TAB Levothyroxine (Synthroid) 88 Mcg Tab 88 MCG PO DAILY Thyroid #30 Ref 0 TAB Liothyronine (Liothyronine) 5 Mcg Tab 5 MCG PO DAILY Thyroid Supplement #30 Ref 0 TAB Meclizine HCl (Meclizine 25) 25 Mg Tab 25 MG PO BID PRN VERTIGO Mirtazapine (Mirtazapine) 15 Mg Tab 15 MG PO HS Depression Control #30 Ref 0 TAB Omeprazole (Omeprazole) 20 Mg Cap 20 MG PO DAILY Sertraline (Zoloft) 50 Mg Tab 50 MG PO DAILY #30 Ref 0 TAB Sumatriptan (Imitrex) 100 Mg Tab 100 MG PO DIRECTED If a satisfactory response has not been obtained at 2 hours, a second dose may be administered PRN MIGRAINE HEADACHE Ref 0 TAB Trospium ER (Trospium ER) 60 Mg Cap 60 MG PO DAILY Urinary Symptom Managemen #30 Ref 0 CAP Discontinued Medications: Acetaminophen-Codeine (Tylenol-Codeine #3) 300-30 mg Tab 1 TAB PO Q6HR PRN PAIN Ref 0 TAB Cyproheptadine (Cyproheptadine) 4 Mg Tab 4 MG PO HS #90 Ref 0 TAB Diazepam (Valium) 5 Mg Tab 5 MG PO DAILY PRN ANXIETY Ref 0 TAB Zolpidem (Zolpidem) 5 Mg Tab 5 MG PO HS PRN INSOMNIA Ref 0 TAB Laurie Rahman MD Oct 30, 2016 11:10
--- NOTE | 2016-10-30 11:10 | HHI.DCPOC ---
Discharge Care Plan Diagnosis: (1) Falls frequently Your Health Problems Are: Difficulty with ADL Goals to Promote Your Health * To prevent worsening of your condition and complications * To maintain your health at the optimal level Directions to Meet Your Goals Take your medications as prescribed Follow your dietary instruction Follow activity as directed Keep your appointments as scheduled Take your immunizations and boosters as scheduled If your symptoms worsen call your PCP, if no PCP go to Urgent Care Center or Emergency Room Smoking is Dangerous to Your Health. Avoid second hand smoke Call the 24-hour hour crisis hotline for domestic abuse at Laurie Rahman MD Oct 30, 2016 11:10
[2016-10-30 11:20] VITALS: BP 145/70; PULSE 71; RESP 20; TEMP 97.7; O2SAT 94
== END 2016-10-30 15:10 | disposition home or self-care (01) ==
LOC: NEPE 07:53 → NEDA 10:42 → NEPFCDU 14:01
PROVIDERS: ADMIT Internal Medicine; ATTEND Internal Medicine
DX: R53.1 Weakness (principal); E03.9 Hypothyroidism, unspecified; E87.6 Hypokalemia; R41.82 Altered mental status, unspecified; R53.83 Other fatigue; I10 Essential (primary) hypertension; J45.909 Unspecified asthma, uncomplicated; K21.9 Gastro-esophageal reflux disease without esophagitis; F41.8 Other specified anxiety disorders; Z79.01 Long term (current) use of anticoagulants; R94.31 Abnormal electrocardiogram [ECG] [EKG]
CPT/HCPCS: 70450; 71010; 72125; 80048; 80053; 81001; 82550; 83735; 84439; 84443; 84481; 84484; 85025; 85610; 85730; 93005; 96374; 97162; 99285; G0378; G8987; G8988; J1100; J3480; J7030; J7040

== ENCOUNTER 2017-05-19 14:48 | Inpatient (IN) | payer MEDICARE, BC ==
[~2017-05-19] VITALS: Ht 158.8 cm; Wt 51.0 kg
[2017-05-19] VITALS (7 sets, daily range): BP systolic 116–158; BP diastolic 61–86; PULSE 83–94; RESP 16–20; TEMP 96.7–98.5; O2SAT 95–100
[~2017-05-19 14:48] MED LIST changes: +ASPI1TAB69 PO; -ASPI81 PO; +BECL80AE3 INH; +BUPR150CR PO; +CARV20 PO; -CORE20CA PO; +CORT5TAB PO; +DIAZ5 PO; -DIAZ5TAB PO; +HYDR-3535 PO; -HYDRO10 PO; +IMIT100T PO; -LEVO.1 PO; -LIBRAX PO; -LIOT5TAB PO; +LIOT5TAB3 PO; -LORTA5 PO; +MECL1TAB42 PO; -MECL25CH PO; +MIRTA15 PO; +OMEP20CA2 PO; -REME15TA PO; -SUMA100T2 PO; +SYNT88TA PO; -TROS60CA PO; +TROS60CA2 PO; -WELL150T PO; -ZOLP5TAB3 PO
[2017-05-19] MEDS ORDERED: POTA10CA PO (15:09)
[2017-05-19] MEDS ORDERED: HYDROmorphone HCL PF 1 MG/ML VIAL IV PUSH ONE (15:15)
[2017-05-19] MEDS ORDERED: ONDANSETRON HCL 4 MG/2 ML VIAL IV PUSH ONE (15:15)
--- NOTE | 2017-05-19 15:17 | PD ---
HPI Chief Complaint: Fall Time Seen by Provider: 15:03 Travel History International Travel<30 days: No Contact w/Intl Traveler<30days: No Traveled to known affect area: No History of Present Illness HPI 81- year old female with a PMHx of adrenal insufficiency, asthma, and leaky valve brought to the ED by [facility] complaining of left wrist pain. The patient reports she was getting up to sit on a "swirly chair." When going to sit in the chair she states she fell off, with this incident happening about one hour ago. She reports she then fell on her left side including her head and wrist. She reports the pain in her left arm is a 7/10 and the patient received Morphine 10 mg en route to hospital. The patient denies any chest pain, shortness of breath , nausea, vomiting, or diarrhea, headache. She reports aspirin use but denies any blood thinners. PFSH Past Medical History Hx Anticoagulant Therapy: Yes Asthma: Yes Autoimmune Disease: No Blood Disorders: No Anxiety: Yes Depression: Yes Heart Rhythm Problems: No Cancer: No Cardiac Catheterization: Yes Cardiovascular Problems: Yes High Cholesterol: No Chemotherapy: No Chest Pain: Yes Congestive Heart Failure: No COPD: No Diabetes: No Diminished Hearing: No Diverticulitis: Yes Endocrine: Yes Gastrointestinal Disorders: Yes GERD: Yes Hypertension: Yes Immune Disorder: No Implanted Vascular Access Dvce: No Musculoskeletal: Yes (spinal stenosis, chronic back pain) Neurologic: No Psychiatric: Yes (PTSD) Reproductive: No Respiratory: Yes Myocardial Infarction: No Radiation Therapy: No Sleep Apnea: No Thyroid Disease: Yes (HYPO) Menopausal: Yes Past Surgical History Abdominal Surgery: Yes (COLON RESECTION) Appendectomy: Yes Cholecystectomy: No Genitourinary Surgery: Yes (BLADDER SLING) Gynecologic Surgery: Yes (HYSTERECTEMY) Hysterectomy: Yes Neurologic Surgery: Yes (FUSION C5-C6) Other Surgery: Yes (appendectomy ) Social History Alcohol Use: No (PT DENIES) Tobacco Use: No (PT DENIES) Substance Use: No Allergies-Medications (Allergen,Severity, Reaction): Coded Allergies: gluten (Unverified Allergy, Severe, Cramping, 05/19/17) PT DESCRIBES SEVERE STOMACH CRAMPS AFTER EATING GLUTEN lactose (Unverified Allergy, Mild, Diarrhea, 05/19/17) meperidine (Unverified Adverse Reaction, Mild, nausea, 05/19/17) Reported Meds & Prescriptions Reported Meds & Active Scripts Active Reported Potassium Chloride ER (Potassium Chloride) 10 Meq Cap Unknown Dose PO DAILY Wellbutrin SR 12 HR (Bupropion HCl) 150 Mg Tab 150 Mg PO Q12HR Coreg Cr 24 HR (Carvedilol) 20 Mg Cap 20 Mg PO DAILY Cortef (Hydrocortisone) 5 Mg Tab 2.5 Mg PO HS Take with food to decrease GI upset Cortef (Hydrocortisone) 5 Mg Tab 5 Mg PO DAILY @ 1200 Take with food to decrease GI upset Cortef (Hydrocortisone) 5 Mg Tab 12.5 Mg PO DAILY IN THE MORNING Take with food to decrease GI upset Valium (Diazepam) 5 Mg Tab 5 Mg PO DAILY PRN Lortab (Hydrocodone-Acetaminophen) 10-325 Mg Tab 1 Tab PO Q6H PRN Meclizine 25 (Meclizine HCl) 25 Mg Tab 25 Mg PO BID PRN Liothyronine (Liothyronine Sodium) 5 Mcg Tab 5 Mcg PO DAILY Mirtazapine 15 Mg Tab 15 Mg PO HS Zoloft (Sertraline HCl) 50 Mg Tab 50 Mg PO DAILY Imitrex (Sumatriptan Succinate) 100 Mg Tab 100 Mg PO DIRECTED PRN If a satisfactory response has not been obtained at 2 hours, a second dose may be administered Synthroid (Levothyroxine Sodium) 88 Mcg Tab 88 Mcg PO DAILY Trospium ER 60 Mg Cap 60 Mg PO DAILY Qvar Inh (Beclomethasone Dipropionate) 80 Mcg/Act Aero 1 Puff INH BID Omeprazole 20 Mg Cap 20 Mg PO DAILY Review of Systems General / Constitutional: No: Fever, Chills, Weight Gain, Weight Loss, Other Eyes: No: Diploplia, Blurred Vision, Photophobia, Drainage, Redness, Foreign Body Sensation, Pain, Tearing, Blind Spots, Visual changes, Blindness, Other HENT: No: Headaches, Vertigo, Lightheadedness, Sore Throat, Rhinitis, Rhinorrhea, Congestion, Nosebleed, Neck Stiffness, Neck Pain, Masses, Gingival Bleeding, Dental Difficulties, Ear Discharge, Earache, Other Cardiovascular: No: Chest Pain or Discomfort, Palpitations, Irregular Rhythm, Tachycardia, Diaphoresis, Syncope, Dyspnea on exertion, Varicosities, Edema, Cyanosis, Varicosities, Phlebitis, Claudication, Other Respiratory: No: Cough, Shortness of Breath, Wheezing, Sneezing, Orthopnea, Hemoptysis, Stridor, Night Sweats, Pleuritic Pain, Other Gastrointestinal: No: Nausea, Vomiting, Diarrhea, Abdominal Pain, Hematemesis, Hematochezia, Constipation, Changes in Bowel Habits, Indigestion, Dysphagia, Loss of Appetite, Other Genitourinary: No: Urgency, Frequency, Dysuria, Nocturia, Hematuria, Decreased Urinary Output, Oliguria, Hesitancy, Dribbling, Incontinence, Pelvic Pain, Flank Pain, Dyspareunia, Discharge, Dysmenorrhea, Menorrhagia, Metorrhagia, Vaginal Bleeding, Other Musculoskeletal: Positive: Limited ROM (left wrist ), Pain (left wrist ), No: Myalgias, Arthralgias, Weakness, Cramping, Edema, Atrophy, Other Skin: No Rash, No Itching, No Dryness, No Lumps, No Hives, No Change in Pigmentation, No Change in nails, No Alopecia, No Lesions, No Breast Lumps, No Breast Tenderness, No Breast Swelling, No Other Neurologic: No: Weakness, Dizziness, Syncope, Focal Abnormalities, Coordination Problem, Tremor, Ataxia, Headache, Change in Mentation, Slurred Speech, Paresthesia, Incontinence, Seizures, Sensory Disturbance, Other Psychiatric: No: Anxiety, Depression, Suicidal Ideations, Disorder of Thought, Mood Disorder, Substance Abuse, Homicidal Ideation, Other Endocrine: No: Heat Intolerance, Cold Intolerance, Polyuria, Polydipsia, Other Hematologic/Lymphatic: No: Easy Bruising, Lymph Node Enlargement, Other Physical Exam Narrative GENERAL: SKIN: Warm and dry. HEAD: Bruise to left jainism. Normocephalic. EYES: Pupils equal and round. No scleral icterus. No injection or drainage. ENT: No nasal bleeding or discharge. Mucous membranes pink and moist. NECK: Trachea midline. No JVD. CARDIOVASCULAR: Regular rate and rhythm. RESPIRATORY: No accessory muscle use. Clear to auscultation. Breath sounds equal bilaterally. No wheezes, rales, or rhonchi. GASTROINTESTINAL: Abdomen soft, non-tender, nondistended. Hepatic and splenic margins not palpable. MUSCULOSKELETAL: Unable to examine left wrist due to pain. Extremities without clubbing, cyanosis, or edema. NEUROLOGICAL: Awake and alert. No obvious cranial nerve deficits. Motor grossly within normal limits. Five out of 5 muscle strength in the arms and legs. Normal speech. PSYCHIATRIC: Appropriate mood and affect; insight and judgment normal. Data Data Last Documented VS Vital Signs Date Time Temp Pulse Resp B/P (MAP) Pulse Ox O2 Delivery O2 Flow Rate FiO2 05/19/17 17:12 84 16 158/86 (110) 100 Nasal Cannula 2.00 05/19/17 15:09 98.5 Orders Orders Hydromorphone Pf Inj (Dilaudid Pf Inj) (05/19/17 15:15) Ondansetron Inj (Zofran Inj) (05/19/17 15:15) Forearm (2vws) (05/19/17 15:04) Ice/Cold Pack (05/19/17 15:04) Ct Brain W/O Iv Contrast(Rout) (05/19/17 15:04) Complete Blood Count With Diff (05/19/17 15:04) Basic Metabolic Panel (Bmp) (05/19/17 15:04) Prothrombin Time / Inr (Pt) (05/19/17 15:04) Act Partial Throm Time (Ptt) (05/19/17 15:04) Iv Access Insert/Monitor (05/19/17 15:04) Hand, Limited (2vws) (05/19/17 15:13) Splint Or Brace Apply/Monitor (05/19/17 15:31) Propofol 200 Mg/20 Ml Inj (Diprivan 200 (05/19/17 15:45) Wrist, Limited (Ap&Lat) (05/19/17 ) Fiberglass Sugartong Sp Ad Arm (05/19/17 ) Sling Cradle Arm (05/19/17 ) Npo After Midnight W/ Po Meds (05/19/17 Dinner) Consult Orthopedic (05/19/17 ) (Hub Use Only)Inp Phy Cons/Ref (05/19/17 ) Vital Signs (Adult) SUZANNE.Q4H (05/19/17 17:48) Hydromorphone Pf Inj (Dilaudid Pf Inj) (05/19/17 18:00) Sodium Chlor 0.9% 1000 Ml Inj (Ns 1000 M (05/19/17 18:00) Ondansetron Inj (Zofran Inj) (05/19/17 18:00) Admit Order (Ed Use Only) (05/19/17 17:50) Labs Laboratory Tests Test 05/19/17 15:15 White Blood Count 7.5 TH/MM3 Red Blood Count 3.61 MIL/MM3 Hemoglobin 11.3 GM/DL Hematocrit 31.8 % Mean Corpuscular Volume 88.1 FL Mean Corpuscular Hemoglobin 31.3 PG Mean Corpuscular Hemoglobin Concent 35.5 % Red Cell Distribution Width 13.3 % Platelet Count 162 TH/MM3 Mean Platelet Volume 8.3 FL Neutrophils (%) (Auto) 86.0 % Lymphocytes (%) (Auto) 7.1 % Monocytes (%) (Auto) 3.9 % Eosinophils (%) (Auto) 2.6 % Basophils (%) (Auto) 0.4 % Neutrophils # (Auto) 6.5 TH/MM3 Lymphocytes # (Auto) 0.5 TH/MM3 Monocytes # (Auto) 0.3 TH/MM3 Eosinophils # (Auto) 0.2 TH/MM3 Basophils # (Auto) 0.0 TH/MM3 CBC Comment DIFF FINAL Differential Comment Prothrombin Time 10.7 SEC Prothromb Time International Ratio 1.0 RATIO Activated Partial Thromboplast Time 25.0 SEC Blood Urea Nitrogen 15 MG/DL Creatinine 0.95 MG/DL Random Glucose 90 MG/DL Calcium Level 8.2 MG/DL Sodium Level 134 MEQ/L Potassium Level 4.2 MEQ/L Chloride Level 102 MEQ/L Carbon Dioxide Level 21.1 MEQ/L Anion Gap 11 MEQ/L Estimat Glomerular Filtration Rate 56 ML/MIN MDM Medical Decision Making Medical Screen Exam Complete: Yes Emergency Medical Condition: Yes Medical Record Reviewed: Yes Interpretation(s) CBC & BMP Diagram 05/19/17 15:15 Calcium Level 8.[address] head negative Xray left forearm shows fractures of radius and ulna with displacement xray of wrist shows reduction but fractures still noted. Coags WNL Differential Diagnosis Fracture to wrist versus Injury versus Fall Narrative Course 81-year-old female that presents to the ED for evaluation of fall. Patient was properly examined and was found to have signs and symptoms consistent with appears to be fall. Likely fracture. X-rays were done. X-rays were positive for fracture with dislocation. Case discussed with my attending who recommends reduction. Fracture was reduced by my attending and me under conscious sedation. Please refer to her note. Patient tolerated procedure well. Postreduction films did show improvement in alignment but still fractures. Recommendation was to speak with orthopedic surgeon. My attending spoke with the orthopedic surgeon who recommends admission to medicine for medical clearance and surgery tomorrow. Patient was told this and agrees with plan. Case was discussed with Dr. Turk who agrees to admission. Procedures Procedure Narrative LACERATION LOCATION: Left eyebrow LENGTH: 1 cm NUMBER OF STITCHES/BROCK: 2 Steri-Strips and Dermabond REPAIR: The area of the laceration was prepped with Betadine and sterilely draped. The wound was copiously irrigated and explored without evidence of foreign body, tendon injury or neurovascular injury. The wound was closed using dermabond and steristrips. This was a 1 layer repair. A sterile dressing was applied. The patient was advised to keep the dressing clean and dry. Patient tolerated the procedure well. Diagnosis Primary Impression: Wrist fracture, left Qualified Codes: S62.102A - Fracture of unspecified carpal bone, left wrist, initial encounter for closed fracture Additional Impressions: Head injury, acute Qualified Codes: S09.90XA - Unspecified injury of head, initial encounter Laceration of head Qualified Codes: S01.412A - Laceration without foreign body of left cheek and temporomandibular area, initial encounter Admitting Information Admitting Physician Requests: Khoa Huff May 19, 2017 15:17
[2017-05-19 15:43] LABS: AUTOMATED NEUTROPHIL # 6.5 TH/MM3 (1.8-7.7); BASOPHIL % 0.4 % (0.0-2.0); EOSINOPHIL # 0.2 TH/MM3 (0-0.4); EOSINOPHIL % 2.6 % (0.0-4.0); HEMATOCRIT 31.8 % (35.0-46.0); HEMO FLAGS DIFF FINAL; LYMPH % 7.1 % (9.0-44.0); LYMPHOCYTE # 0.5 TH/MM3 (1.0-4.8); MEAN CELL VOLUME 88.1 FL (80.0-100.0); MEAN CORPUSCULAR HEMOGLOBIN 31.3 PG (27.0-34.0); MEAN CORPUSCULAR HGB CONC 35.5 % (32.0-36.0); MONO % 3.9 % (0.0-8.0); PLATELET COUNT 162 TH/MM3 (150-450); RED BLOOD COUNT 3.61 MIL/MM3 (4.00-5.30); RED CELL DISTRIBUTION WIDTH 13.3 % (11.6-17.2); WHITE BLOOD COUNT 7.5 TH/MM3 (4.0-11.0)
[2017-05-19] MEDS ORDERED: PROPOFOL 200 MG/20 ML AMP IV ONE (15:45)
[2017-05-19 15:48] LABS: PROTHROMBIN TIME - PATIENT 10.7 SEC (9.8-11.6)
--- NOTE | 2017-05-19 15:52 | RADRPT ---
EXAM DATE/TIME: 05/19/2017 15:27 [facility] COMPARISON: FOREARM LEFT (2VWS), May 19, 2017, 15:23. INDICATIONS : Fall. MEDICAL HISTORY : None. SURGICAL HISTORY : None. ENCOUNTER: Initial ACUITY: 1 day PAIN SCORE: 10/10 LOCATION: Left hand FINDINGS: There is significant soft tissue deformity at the wrist with swelling, and a displaced and comminuted intra-articular fracture of the distal radial metaphysis with resultant displacement of the distal f racture fragments. In addition ulnar styloid process fracture is noted. Decreased bone density. CONCLUSION: Radius and ulnar fractures with angulation and soft tissue swelling. There is dorsal dislocation at t he wrist. Dalton Victor MD on May 19, 2017 at 15:50 Board Certified Radiologist. This report was verified electronically.
--- NOTE | 2017-05-19 15:53 | RADRPT ---
EXAM DATE/TIME: 05/19/2017 15:23 [facility] COMPARISON: HAND LEFT LIMITED (2VWS), May 19, 2017, 15:27. INDICATIONS : Fall. MEDICAL HISTORY : None. SURGICAL HISTORY : None. ENCOUNTER: Initial ACUITY: 1 day PAIN SCORE: 10/10 LOCATION: Left forearm FINDINGS: There is soft tissue swelling and significant deformity of the wrist with comminuted intra-articular and displaced fractures of the distal radial metaphysis and a styloid, with dorsal dislocation of the carpal bones with respect to the proximal ulna and radius. There is dorsal displacement of the dista l radial fracture fragments with respect to the proximal radius. CONCLUSION: Fracture deformities as above. Dalton Victor MD on May 19, 2017 at 15:51 Board Certified Radiologist. This report was verified electronically.
--- NOTE | 2017-05-19 15:57 | RADRPT ---
EXAM DATE/TIME: 05/19/2017 15:34 [facility] COMPARISON: CT BRAIN W/O CONTRAST, October 28, 2016, 8:31. INDICATIONS : Patient fell off barstool, hit head RADIATION DOSE: 31.05 CTDIvol (mGy) MEDICAL HISTORY : Cardiovascular disease. Hypertension. SURGICAL HISTORY : Hysterectomy. ENCOUNTER: Initial ACUITY: 1 day PAIN SCALE: 4/10 LOCATION: Left temporal TECHNIQUE: Multiple contiguous axial images were obtained of the head. Using automated exposure control and adj ustment of the mA and/or kV according to patient size, radiation dose was kept as low as reasonably a chievable to obtain optimal diagnostic quality images. DICOM format image data is available electro nically for review and comparison. FINDINGS: There is atrophy and artery patchy and confluent decreased density in the bilateral centrum semiovale and periventricular white matter again seen. No signs of acute infarct, hemorrhage, or mass. The oss eous structures are intact. CONCLUSION: No significant change has occurred. Dalton Victor MD on May 19, 2017 at 15:55 Board Certified Radiologist. This report was verified electronically.
[2017-05-19 16:12] LABS: BICARBONATE 21.1 MEQ/L (21.0-32.0); POTASSIUM 4.2 MEQ/L (3.5-5.1)
--- NOTE | 2017-05-19 16:16 | PD ---
HPI Chief Complaint: Fall Time Seen by Provider: 15:03 Travel History International Travel<30 days: No Contact w/Intl Traveler<30days: No Traveled to known affect area: No History of Present Illness HPI I, Dr. Syed, have reviewed the advance practice practitioner's documentation and am in agreement, met with the patient face to face, made the diagnosis, and the medical decision making was done by me. *My assessment and Findings: Dislocation vs. fracture 81yo F with adrenal insufficiency here with left wrist deformity after falling off a stool today. Pt with small left forehead stellate laceration. CT brain showed no significant change. Xray left hand and wrist showed significant soft tissue deformity at the wrist with displaced and comminuted intra-articular fracture of the distal radial metaphysis and displacemetn of the distal fracture fractures. Ulnar styloid process fracture noted. Radial pulse 2+. Procedural sedation was performed for left wrist reduction. PFSH Past Medical History Hx Anticoagulant Therapy: Yes Asthma: Yes Autoimmune Disease: No Blood Disorders: No Anxiety: Yes Depression: Yes Heart Rhythm Problems: No Cancer: No Cardiac Catheterization: Yes Cardiovascular Problems: Yes High Cholesterol: No Chemotherapy: No Chest Pain: Yes Congestive Heart Failure: No COPD: No Diabetes: No Diminished Hearing: No Diverticulitis: Yes Endocrine: Yes Gastrointestinal Disorders: Yes GERD: Yes Hypertension: Yes Immune Disorder: No Implanted Vascular Access Dvce: No Musculoskeletal: Yes (spinal stenosis, chronic back pain) Neurologic: No Psychiatric: Yes (PTSD) Reproductive: No Respiratory: Yes Myocardial Infarction: No Radiation Therapy: No Sleep Apnea: No Thyroid Disease: Yes (HYPO) Menopausal: Yes Past Surgical History Abdominal Surgery: Yes (COLON RESECTION) Appendectomy: Yes Cholecystectomy: No Genitourinary Surgery: Yes (BLADDER SLING) Gynecologic Surgery: Yes (HYSTERECTEMY) Hysterectomy: Yes Neurologic Surgery: Yes (FUSION C5-C6) Other Surgery: Yes (appendectomy ) Social History Alcohol Use: No (PT DENIES) Tobacco Use: No (PT DENIES) Substance Use: No Allergies-Medications (Allergen,Severity, Reaction): Coded Allergies: gluten (Unverified Allergy, Severe, Cramping, 05/19/17) PT DESCRIBES SEVERE STOMACH CRAMPS AFTER EATING GLUTEN lactose (Unverified Allergy, Mild, Diarrhea, 05/19/17) meperidine (Unverified Adverse Reaction, Mild, nausea, 05/19/17) Reported Meds & Prescriptions Reported Meds & Active Scripts Active Reported Potassium Chloride ER (Potassium Chloride) 10 Meq Cap Unknown Dose PO DAILY Wellbutrin SR 12 HR (Bupropion HCl) 150 Mg Tab 150 Mg PO Q12HR Coreg Cr 24 HR (Carvedilol) 20 Mg Cap 20 Mg PO DAILY Cortef (Hydrocortisone) 5 Mg Tab 2.5 Mg PO HS Take with food to decrease GI upset Cortef (Hydrocortisone) 5 Mg Tab 5 Mg PO DAILY @ 1200 Take with food to decrease GI upset Cortef (Hydrocortisone) 5 Mg Tab 12.5 Mg PO DAILY IN THE MORNING Take with food to decrease GI upset Valium (Diazepam) 5 Mg Tab 5 Mg PO DAILY PRN Lortab (Hydrocodone-Acetaminophen) 10-325 Mg Tab 1 Tab PO Q6H PRN Meclizine 25 (Meclizine HCl) 25 Mg Tab 25 Mg PO BID PRN Liothyronine (Liothyronine Sodium) 5 Mcg Tab 5 Mcg PO DAILY Mirtazapine 15 Mg Tab 15 Mg PO HS Zoloft (Sertraline HCl) 50 Mg Tab 50 Mg PO DAILY Imitrex (Sumatriptan Succinate) 100 Mg Tab 100 Mg PO DIRECTED PRN If a satisfactory response has not been obtained at 2 hours, a second dose may be administered Synthroid (Levothyroxine Sodium) 88 Mcg Tab 88 Mcg PO DAILY Trospium ER 60 Mg Cap 60 Mg PO DAILY Qvar Inh (Beclomethasone Dipropionate) 80 Mcg/Act Aero 1 Puff INH BID Omeprazole 20 Mg Cap 20 Mg PO DAILY Data Data Last Documented VS Vital Signs Date Time Temp Pulse Resp B/P (MAP) Pulse Ox O2 Delivery O2 Flow Rate FiO2 05/19/17 15:59 93 16 116/61 (79) 95 Room Air 05/19/17 15:09 98.5 Orders Orders Hydromorphone Pf Inj (Dilaudid Pf Inj) (05/19/17 15:15) Ondansetron Inj (Zofran Inj) (05/19/17 15:15) Forearm (2vws) (05/19/17 15:04) Ice/Cold Pack (05/19/17 15:04) Ct Brain W/O Iv Contrast(Rout) (05/19/17 15:04) Complete Blood Count With Diff (05/19/17 15:04) Basic Metabolic Panel (Bmp) (05/19/17 15:04) Prothrombin Time / Inr (Pt) (05/19/17 15:04) Act Partial Throm Time (Ptt) (05/19/17 15:04) Iv Access Insert/Monitor (05/19/17 15:04) Hand, Limited (2vws) (05/19/17 15:13) Splint Or Brace Apply/Monitor (05/19/17 15:31) Propofol 200 Mg/20 Ml Inj (Diprivan 200 (05/19/17 15:45) Wrist, Limited (Ap&Lat) (05/19/17 ) Labs Laboratory Tests Test 05/19/17 15:15 White Blood Count 7.5 TH/MM3 Red Blood Count 3.61 MIL/MM3 Hemoglobin 11.3 GM/DL Hematocrit 31.8 % Mean Corpuscular Volume 88.1 FL Mean Corpuscular Hemoglobin 31.3 PG Mean Corpuscular Hemoglobin Concent 35.5 % Red Cell Distribution Width 13.3 % Platelet Count 162 TH/MM3 Mean Platelet Volume 8.3 FL Neutrophils (%) (Auto) 86.0 % Lymphocytes (%) (Auto) 7.1 % Monocytes (%) (Auto) 3.9 % Eosinophils (%) (Auto) 2.6 % Basophils (%) (Auto) 0.4 % Neutrophils # (Auto) 6.5 TH/MM3 Lymphocytes # (Auto) 0.5 TH/MM3 Monocytes # (Auto) 0.3 TH/MM3 Eosinophils # (Auto) 0.2 TH/MM3 Basophils # (Auto) 0.0 TH/MM3 CBC Comment DIFF FINAL Differential Comment Prothrombin Time 10.7 SEC Prothromb Time International Ratio 1.0 RATIO Activated Partial Thromboplast Time 25.0 SEC Blood Urea Nitrogen 15 MG/DL Creatinine 0.95 MG/DL Random Glucose 90 MG/DL Calcium Level 8.2 MG/DL Sodium Level 134 MEQ/L Potassium Level 4.2 MEQ/L Chloride Level 102 MEQ/L Carbon Dioxide Level 21.1 MEQ/L Anion Gap 11 MEQ/L Estimat Glomerular Filtration Rate 56 ML/MIN MDM Medical Decision Making Medical Screen Exam Complete: Yes Emergency Medical Condition: Yes Procedures Procedure Narrative After the risks and benefits were discussed the following procedure was performed: MODERATE SEDATION: The patient was placed on a television script writer and pulse oximetry. An ambu bag and suction was immediately available at bedside. The patient was monitored by the nurse. Oxygen saturation , heart rate and blood pressure were monitored. Procedural sedation was acheived using 50mg of propofol. The patient was observed until awake and alert. Procedural Sedation time in attendance was 25 minutes. Anny Syed DO May 19, 2017 16:16
--- NOTE | 2017-05-19 17:12 | RADRPT ---
EXAM DATE/TIME: 05/19/2017 17:01 [facility] COMPARISON: No previous studies available for comparison. INDICATIONS : Post reduction. MEDICAL HISTORY : None. SURGICAL HISTORY : None. ENCOUNTER: Initial ACUITY: 1 day PAIN SCORE: 0/10 LOCATION: Left wrist FINDINGS: There is a splint in place which limits osseous detail. Mildly displaced ulnar styloid process fractu re and comminuted intra-articular distal radius fracture are again noted with significant improved al ignment at the fracture site without significant angulation. Soft tissue swelling. CONCLUSION: Interval reduction of radius and ulnar fractures. Dalton Victor MD on May 19, 2017 at 17:10 Board Certified Radiologist. This report was verified electronically.
[2017-05-19] MEDS: SODIUM CHLOR 0.9% 1000 ML INJ 1,000 ML IV SCH (18:00)
[2017-05-19] MEDS ORDERED: ONDANSETRON HCL 4 MG/2 ML VIAL IV PUSH PRN (18:00)
[2017-05-19] MEDS ORDERED: RESP: ALBUTEROL 2.5 MG/3 ML NEB (PRN) NEB (19:45)
--- NOTE | 2017-05-19 21:57 | HHI.HP ---
HPI Service [facility] Primary Care Physician Ramiro Bunch M.D. Admission Diagnosis left distal radius and ulnar fractures, fall Diagnoses: (1) Wrist fracture, left Chief Complaint: Fell down and hit head and wrist Travel History International Travel<30 Days: No Contact w/Intl Traveler <30 Da: No Traveled to Known Affected Are: No History of Present Illness Written by Muriel Steele, acting as scribe for Dr. Logan on 05/19/17 at 21:56. Waiting for lunch that was ordered "to go" and stool swirled around while she was trying to sit and she fell on the tile floor. Denies syncope prior to fall but states that she hit her head. Denies anticoagulation other than daily aspirin at home. She had severe left wrist pain following the fall. Denies nausea, vomiting, diarrhea, fevers. States she's had a productive cough with yellow sputum for about a week but feels like she's gotten over it. Denies chest pain, shortness of breath. Denies red stool. Stools are dark due to supplemental iron. Burning and pain with urination. Has an appointment with a urologist next week. Review of Systems Except as stated in HPI: all other systems reviewed are Neg Past Family Social History Past Medical History Adrenal Insufficiency Valvular heart disease - "slight leakage" Hypothyroidism Hypertension Denies DM, CAD, CHF, atrial fibrillation, emphysema, LONG, liver problems, kidney problems, DVT, PE, CVA, seizures, or cancers . Past Surgical History Appendectomy Hysterectomy Cervical fusion Reported Medications Reported Meds & Active Scripts Active Reported Potassium Chloride ER (Potassium Chloride) 10 Meq Cap Unknown Dose PO DAILY Wellbutrin SR 12 HR (Bupropion HCl) 150 Mg Tab 150 Mg PO Q12HR Coreg Cr 24 HR (Carvedilol) 20 Mg Cap 20 Mg PO DAILY Cortef (Hydrocortisone) 5 Mg Tab 2.5 Mg PO HS Take with food to decrease GI upset Cortef (Hydrocortisone) 5 Mg Tab 5 Mg PO DAILY @ 1200 Take with food to decrease GI upset Cortef (Hydrocortisone) 5 Mg Tab 12.5 Mg PO DAILY IN THE MORNING Take with food to decrease GI upset Valium (Diazepam) 5 Mg Tab 5 Mg PO DAILY PRN Lortab (Hydrocodone-Acetaminophen) 10-325 Mg Tab 1 Tab PO Q6H PRN Meclizine 25 (Meclizine HCl) 25 Mg Tab 25 Mg PO BID PRN Liothyronine (Liothyronine Sodium) 5 Mcg Tab 5 Mcg PO DAILY Mirtazapine 15 Mg Tab 15 Mg PO HS Zoloft (Sertraline HCl) 50 Mg Tab 50 Mg PO DAILY Imitrex (Sumatriptan Succinate) 100 Mg Tab 100 Mg PO DIRECTED PRN If a satisfactory response has not been obtained at 2 hours, a second dose may be administered Synthroid (Levothyroxine Sodium) 88 Mcg Tab 88 Mcg PO DAILY Trospium ER 60 Mg Cap 60 Mg PO DAILY Qvar Inh (Beclomethasone Dipropionate) 80 Mcg/Act Aero 1 Puff INH BID Omeprazole 20 Mg Cap 20 Mg PO DAILY . Allergies: Coded Allergies: Sulfa (Sulfonamide Antibiotics) (Verified Allergy, Severe, HIVES, SWELLING , 05/20/17) gluten (Unverified Allergy, Severe, Cramping, 05/19/17) PT DESCRIBES SEVERE STOMACH CRAMPS AFTER EATING GLUTEN lactose (Unverified Allergy, Mild, Diarrhea, 05/19/17) meperidine (Unverified Adverse Reaction, Mild, nausea, 05/19/17) Active Ordered Medications Current Medications Hydromorphone HCl (Dilaudid Pf Inj) 0.5 mg ONCE ONCE IV PUSH Last administered on 05/19/17 15:15; Start 05/19/17 at 15:15; Stop 05/19/17 at 15:16 ; Status DC Ondansetron HCl (Zofran Inj) 4 mg ONCE ONCE IV PUSH Last administered on 15:15; Start 05/19/17 at 15:15; Stop 05/19/17 at 15:16; Status DC Propofol (Diprivan 200 Mg/20 ml Inj) 50 mg ONCE ONCE IV Last administered on 05/19/17 16:32; Start 05/19/17 at 15:45; Stop 05/19/17 at 15:46; Status DC Hydromorphone HCl (Dilaudid Pf Inj) 0.5 mg Q4H PRN IV PUSH PAIN 1-10; Start at 18:00 Sodium Chloride 1,000 ml @ 70 mls/hr [id number] IV Last administered on t 18:00; Start 05/19/17 at 18:00 Ondansetron HCl (Zofran Inj) 4 mg Q8HR PRN IV PUSH NAUSEA; Start 05/19/17 at 18 :00 Albuterol Sulfate (Albuterol Neb) 2.5 mg Q4HR NEB PRN NEB WHEEZING; Start 05/19 at 19:45 . Family History Mother had heart "trouble" Social History Tobacco: denies Alcohol: denies Illicit Drugs: denies lives alone and drives still . Physical Exam Vital Signs Vital Signs Date Time Temp Pulse Resp B/P (MAP) Pulse Ox O2 Delivery O2 Flow Rate FiO2 05/19/17 21:11 83 20 150/81 (104) 100 Nasal Cannula 2.00 05/19/17 17:12 84 16 158/86 (110) 100 Nasal Cannula 2.00 05/19/17 16:22 99 4.00 05/19/17 16:22 99 05/19/17 15:59 93 16 116/61 (79) 95 Room Air 05/19/17 15:09 98.5 05/19/17 14:58 94 16 156/72 (100) 97 Physical Exam GENERAL: This is an elderly female patient, in no apparent distress. SKIN: No rashes. Cool and dry. HEAD: Left temporal area above eyebrow with laceration covered with two steri- strips. Normocephalic. EYES: No scleral icterus. No injection or drainage. ENT: Nose without bleeding, purulent drainage. Hard of hearing. NECK: Trachea midline. No JVD. CARDIOVASCULAR: Regular rate and rhythm without murmurs, gallops, or rubs. RESPIRATORY: Clear to auscultation. Breath sounds equal bilaterally. No wheezes , rales, or rhonchi. GASTROINTESTINAL: Abdomen soft, non-tender, nondistended. No guarding. MUSCULOSKELETAL: Extremities without clubbing, cyanosis. No calf tenderness. Left arm in splint. NEUROLOGICAL: Awake and alert. Motor and sensory grossly within normal limits. Normal speech. . Laboratory Laboratory Tests Test 05/19/17 15:15 White Blood Count 7.5 Red Blood Count 3.61 Hemoglobin 11.3 Hematocrit 31.8 Mean Corpuscular Volume 88.1 Mean Corpuscular Hemoglobin 31.3 Mean Corpuscular Hemoglobin Concent 35.5 Red Cell Distribution Width 13.3 Platelet Count 162 Mean Platelet Volume 8.3 Neutrophils (%) (Auto) 86.0 Lymphocytes (%) (Auto) 7.1 Monocytes (%) (Auto) 3.9 Eosinophils (%) (Auto) 2.6 Basophils (%) (Auto) 0.4 Neutrophils # (Auto) 6.5 Lymphocytes # (Auto) 0.5 Monocytes # (Auto) 0.3 Eosinophils # (Auto) 0.2 Basophils # (Auto) 0.0 CBC Comment DIFF FINAL Differential Comment Prothrombin Time 10.7 Prothromb Time International Ratio 1.0 Activated Partial Thromboplast Time 25.0 Blood Urea Nitrogen 15 Creatinine 0.95 Random Glucose 90 Calcium Level 8.2 Sodium Level 134 Potassium Level 4.2 Chloride Level 102 Carbon Dioxide Level 21.1 Anion Gap 11 Estimat Glomerular Filtration Rate 56 Result Diagram: 05/19/17 1515 05/19/17 1515 Imaging Left hand x-ray with radius and ulnar fractures with angulation and soft tissue swelling. Dorsal dislocation of the risks noted. Head CT with no significant change noted. Left forearm x-ray was soft tissue swelling and deformity of the wrist with comminuted intra-articular and displaced fractures of the distal radial metaphysis and styloid with dorsal dislocation of the carpal bones with respect to the proximal ulna and radius. Dorsal displacement of distal radial fracture fragments with respect to proximal radius. Caprini VTE Risk Assessment Caprini VTE Risk Assessment: Mod/High Risk (score >= 2) VTE Pharm Contraindication: upcoming surgery Caprini Risk Assessment Model Point Value = 1 Point Value = 2 Point Value = 3 Point Value = 5 Age 41-60 Minor surgery BMI > 25 kg/m2 Swollen legs Varicose veins or History of unexplained or recurrent spontaneous Oral contraceptives or hormone replacement Sepsis (< 1 month) Serious lung disease, including pneumonia (< 1 month) Abnormal pulmonary function Acute myocardial infarction Congestive heart failure (< 1 month) History of inflammatory bowel disease Medical patient at bed rest Age 61-74 Arthroscopic surgery Major open surgery (> 45 min) Laparoscopic surgery (> 45 min) Malignancy Confined to bed (> 72 hours) Immobilizing plaster cast Central venous access Age >= 75 History of VTE Family history of VTE Factor V Leiden Prothrombin [id number] Lupus anticoagulant Anticardiolipin antibodies Elevated serum homocysteine Heparin-induced thrombocytopenia Other congenital or acquired thrombophilia Stroke (< 1 month) Elective arthroplasty Hip, pelvis, or leg fracture Acute spinal cord injury (< 1 month) Prophylaxis Regimen Total Risk Factor Score Risk Level Prophylaxis Regimen 0-1 Low Early ambulation 2 Moderate Order ONE of the following: *Sequential Compression Device (SCD) *Heparin 5000 units SQ BID 3-4 Higher Order ONE of the following medications: *Heparin 5000 units SQ TID *Enoxaparin/Lovenox 40 mg SQ daily (WT < 150 kg, CrCl > 30 mL/min) *Enoxaparin/Lovenox 30 mg SQ daily (WT < 150 kg, CrCl > 10-29 mL/min) *Enoxaparin/Lovenox 30 mg SQ BID (WT < 150 kg, CrCl > 30 mL/min) AND/OR *Sequential Compression Device (SCD) 5 or more Highest Order ONE of the following medications: *Heparin 5000 units SQ TID (Preferred with Epidurals) *Enoxaparin/Lovenox 40 mg SQ daily (WT < 150 kg, CrCl > 30 mL/min) *Enoxaparin/Lovenox 30 mg SQ daily (WT < 150 kg, CrCl > 10-29 mL/min) *Enoxaparin/Lovenox 30 mg SQ BID (WT < 150 kg, CrCl > 30 mL/min) AND *Sequential Compression Device (SCD) Assessment and Plan Problem List: (1) Wrist fracture, left ICD Code: S62.102A - Fracture of unspecified carpal bone, left wrist, initial encounter for closed fracture Status: Acute (2) Adrenal insufficiency ICD Code: E27.40 - Chronic adrenal insufficiency Status: Chronic (3) Hypothyroidism ICD Code: E03.9 - Hypothyroidism Status: Chronic (4) Asthma ICD Code: J45.909 - Unspecified asthma, uncomplicated Assessment and Plan Left wrist fracture - fracture of radius and ulna - unable to be successfully reduced in ED - consult orthopedic physician - IV hydromorphone/Dilaudid for pain - NPO after midnight - possible surgery in a.m. Adrenal insufficiency - resume Cortef Hypothyroidism, controlled - resume home Synthroid Asthma, controlled - resume home medications - Albuterol nebs q4h PRN wheezing This note was transcribed by ross Ma Wells]. I, Dr. Kerwin Logan personally performed the history, physical exam, and medical decision making; and confirmed the accuracy of the information in the transcribed note. Authenticated by Dr. Kerwin Logan on 05/19/17 at 2205 Discussed Condition With Patient Physician Certification 2 Midnight Certification Type: Admission for Inpatient Services Order for Inpatient Services The services are ordered in accordance with Medicare regulations or non- Medicare payer requirements, as applicable. In the case of services not specified as inpatient-only, they are appropriately provided as inpatient services in accordance with the 2-midnight benchmark. Estimated LOS (days): 3 days is the estimated time the patient will need to remain in the hospital, assuming treatment plan goals are met and no additional complications. Post-Hospital Plan: Not yet determined Problem Qualifiers (1) Wrist fracture, left: Qualified Codes: S62.102A - Fracture of unspecified carpal bone, left wrist, initial encounter for closed fracture Muriel Steele May 19, 2017 21:57 Kerwin Logan MD May 19, 2017 22:22
[2017-05-19] MEDS ORDERED: HYDROCORTISONE 10 MG TAB PO ONE (23:00)
[2017-05-19] MEDS: MIRTAZAPINE 15 MG TAB PO SCH (23:21)
[2017-05-19] MEDS: BECLOMETHASONE DIPROPIONATE 80 MCG/ACT 8.7 GM INHALER INH SCH (23:23)
[2017-05-19] MEDS: HYDROmorphone HCL PF 1 MG/ML VIAL IV PUSH PRN (23:54)
[2017-05-20 04:30] VITALS: BP 146/67; PULSE 95; RESP 16; TEMP 97.7; O2SAT 97
[2017-05-20] MEDS: HYDROmorphone HCL PF 1 MG/ML VIAL IV PUSH PRN (05:44)
[2017-05-20] MEDS: LEVOTHYROXINE SODIUM 88 MCG TAB PO SCH (05:44)
[2017-05-20 08:00] VITALS: BP 143/65; PULSE 102; RESP 18; TEMP 97.5; O2SAT 97
[2017-05-20] MEDS: PANTOPRAZOLE SOD 20 MG DELAYED RELEASE TAB PO SCH (08:17)
[2017-05-20] MEDS: HYDROCORTISONE 10 MG TAB PO SCH ×2 (08:17→17:58)
[2017-05-20] MEDS: CARVEDILOL 6.25 MG TAB PO SCH ×2 (08:18→20:36)
[2017-05-20] MEDS: SODIUM CHLOR 0.9% 1000 ML INJ 1,000 ML IV SCH (08:18)
[2017-05-20] MEDS: SERTRALINE HCL 50 MG TAB PO SCH (08:18)
[2017-05-20] MEDS: BECLOMETHASONE DIPROPIONATE 80 MCG/ACT 8.7 GM INHALER INH SCH ×2 (08:19→20:38)
[2017-05-20] MEDS: TROSPIUM 60 MG PO SCH (08:20)
--- NOTE | 2017-05-20 09:32 | HHI.PR ---
Subjective Remarks Pain is controlled. Possible need for surgery discussed with the patient. Pending orthopedics consult. No new complaints from the patient. Objective Vital Signs Date Time Temp Pulse Resp B/P (MAP) Pulse Ox O2 Delivery O2 Flow Rate FiO2 05/20/17 04:30 97.7 95 16 146/67 (93) 97 05/19/17 21:30 96.7 91 17 142/67 (92) 97 05/19/17 21:11 83 20 150/81 (104) 100 Nasal Cannula 2.00 05/19/17 17:12 84 16 158/86 (110) 100 Nasal Cannula 2.00 05/19/17 16:22 99 4.00 05/19/17 16:22 99 05/19/17 15:59 93 16 116/61 (79) 95 Room Air 05/19/17 15:09 98.5 05/19/17 14:58 94 16 156/72 (100) 97 I/O 05/19/17 05/19/17 05/19/17 05/20/17 05/20/17 05/20/17 07:00 15:00 23:00 07:00 15:00 23:00 Intake Total 1240 ml 480 ml Balance 1240 ml 480 ml Intake Oral 240 ml 480 ml IV Total 1000 ml # Voids 2 3 # Bowel Movements 0 0 Result Diagram: 05/19/17 1515 05/19/17 1515 Objective Remarks GENERAL: NAD, A&Ox3 HEAD: Normocephalic. NECK: Supple, trachea midline. No lymphadenopathy. EYES: No scleral icterus. No injection or drainage. CARDIOVASCULAR: Regular rate and rhythm without murmurs, gallops, or rubs. RESPIRATORY: Breath sounds equal bilaterally. No accessory muscle use. GASTROINTESTINAL: Abdomen soft, non-tender, nondistended. MUSCULOSKELETAL: No cyanosis, or edema. Left wrist is bandaged in soft cast. SKIN: Warm and dry. NEURO: No focal neurological deficitis. A/P Problem List: (1) Wrist fracture, left ICD Code: S62.102A - Fracture of unspecified carpal bone, left wrist, initial encounter for closed fracture Status: Acute Assessment and Plan Assessment and Plan 81-year-old female admitted secondary to left wrist fracture which is unable to be reduced in the ER. Left wrist fracture of radius and ulna unable to be successfully reduced in ED Orthopedics following Continue as needed pain treatments Possible need for surgery Plan for PT Adrenal insufficiency Continue Cortef Hypothyroidism controlled Continue Synthroid Asthma controlled Continue Albuterol nebs q4h PRN wheezing DVT prophylaxis SCDs Problem Qualifiers (1) Wrist fracture, left: Qualified Codes: S62.102A - Fracture of unspecified carpal bone, left wrist, initial encounter for closed fracture Antonio Guerrero MD May 20, 2017 9:32 am
[2017-05-20] MEDS ORDERED: ceFAZolin INJ 1,000 MG VIAL ONE (10:39)
[2017-05-20] MEDS ORDERED: VANCOMYCIN HCL 1000 MG VIAL ONE (10:39)
[2017-05-20] MEDS ORDERED: GENTAMICIN SULFATE 80 MG/2 ML VIAL ONE (10:39)
[2017-05-20] MEDS ORDERED: SODIUM CHLOR 0.9% 250 ML INJ 250 ML ONE (10:40)
[2017-05-20] MEDS ORDERED: HYDROCORTISONE SOD SUCCINATE 100 MG VIAL ONE (11:09)
[2017-05-20] MEDS ORDERED: FAMOTIDINE 20 MG/2 ML VIAL ONE (11:09)
[2017-05-20] MEDS ORDERED: ACETAMINOPHEN 1000 MG/100 ML 100 ML IV ONE (11:09)
[2017-05-20] MEDS ORDERED: PHENYLEPH/NS 1000 MCG/10 ML SYR IV ONE (12:00)
[2017-05-20] MEDS ORDERED: ePHEDrine/NS 25 MG/5 ML SYR IV ONE (12:00)
[2017-05-20] MEDS ORDERED: PROPOFOL 200 MG/20 ML AMP IV ONE (12:00)
[2017-05-20] MEDS ORDERED: ONDANSETRON HCL 4 MG/2 ML VIAL IV PUSH ONE (12:00)
[2017-05-20] MEDS ORDERED: BUPIVACAINE/EPINEPHRINE 0.25% 50 ML VIAL ONE (12:26)
[2017-05-20] MEDS ORDERED: DEXT 5%-NACL 0.45% 1000 ML INJ 1,000 ML IV SCH (12:57)
[2017-05-20] MEDS ORDERED: Post-op Orders (for Pharmacy) MISC XX ONE (13:00)
[2017-05-20] MEDS ORDERED: ONDANSETRON HCL 4 MG/2 ML VIAL IVP PRN (13:00)
[2017-05-20] MEDS ORDERED: NALOXONE HCL 0.4 MG/ML AMP IV PRN (13:00)
[2017-05-20] MEDS ORDERED: MORPHINE SULFATE 4 MG/ML INJ IV PUSH PRN (13:00)
[2017-05-20] MEDS ORDERED: ACETAMINOPHEN/HYDROcodone 325 MG/5 MG TAB PO PRN (13:00)
[2017-05-20] MEDS ORDERED: MISCELLANEOUS NURSING INFORMATION XX PRN (13:00)
[2017-05-20] MEDS ORDERED: diphenhydrAMINE HCL 25 MG CAP PO PRN (13:00)
[2017-05-20] MEDS ORDERED: SODIUM CHLORIDE 0.9% FLUSH 5 ML FLUSH IVF PRN (13:00)
[2017-05-20] MEDS ORDERED: MAGNESIUM HYDROXIDE SUSP 30 ML CUP PO PRN (13:00)
[2017-05-20] MEDS ORDERED: MISCELLANEOUS PHARMACY INFORMATION XX ONE (13:00)
--- NOTE | 2017-05-20 13:08 | PD.OP ---
cc: Paul Anglin MD Operative Report Date of Surgery: May 20, 2017 Preoperative Diagnosis: Left distal radius intra-articular three-part fracture. Postoperative Diagnosis: Same Procedure: Left distal radius fracture open reduction and internal fixation of three-part intra-articular fracture Anesthesia: Gen. Surgeon: Paul Anglin Countersinker Balance Screw Hole(s): RADHA Beard The surgical procedure was assisted by my Advanced Registered Nurse Practitioner. My ELECTRIC SYSTEM OPERATOR presence was necessary throughout this case for the manipulation and positioning of the surgical extremity. My ELECTRIC SYSTEM OPERATOR was assisting me throughout the duration of this procedure. The skill set of an Advance Registered Nurse Practitioner was medically necessary to complete this procedure. During the surgical case, the nuclear plant instrument technician was working at the back table and the Advance Registered Nurse Practitioner was directly assisting me. Operation and Findings: Tourniquet time: 17 minutes at 250 mmHg of pressure Estimated blood loss: 5 cc The patient received intravenous, vancomycin and Ancef. After the appropriate anesthesia was administered, the patient's arm was prepped and draped in the usual sterile fashion. Local anesthetic was given, and the arm was exsanguinated. The tourniquet was raised to 250 mmHg of pressure. We made a standard incision over the volar aspect of the forearm. We then dissected through the flexor carpi radialis sub- sheath. The pronator quadratus was reflected. We now visualized the distal radius fracture very well. The fracture was anatomically reduced both visually and via fluoroscopy. We provisionally held the fracture reduced and then applied a Synthes precontoured distal radius plate into the appropriate position. The plate was secured to the distal radius first with the sliding screw hole. This was then followed by locking screws distally and proximally. We took final fluoroscopic imaging of the wrist. We found no intra-articular penetration of the screws. The patient had full range of motion of the wrist with no crepitus. The tourniquet was released and hemostasis was achieved. The patient had a 2+ radial pulse. We irrigated the incision thoroughly. We then closed skin with 2 -0 Vicryl followed by 3-0 nylon. The arm was dressed and a volar splint was applied. The postoperative plan is to start range of motion of the wrist approximately 3- 4 weeks postoperatively. Paul Anglin MD May 20, 2017 13:08
[2017-05-20] MEDS ORDERED: NORC5TAB PO (13:16)
[2017-05-20] MEDS ORDERED: *morphine SULFATE 8 MG/ML PERIprocedure ONLY ONE (13:21)
[2017-05-20] MEDS ORDERED: fentaNYL CITRATE 250 MCG/5 ML AMP ONE (13:25)
[2017-05-20] MEDS ORDERED: *LABETALOL HCL 100 MG/20 ML VIAL PERIprocedural Use ONLY ONE (13:28)
--- NOTE | 2017-05-20 13:30 | MB ---
cc: JACOB BARBER DATE OF CONSULTATION 05/20/2017 REASON FOR CONSULTATION Left distal radius fracture. HISTORY The patient is an 81-year-old female who said that she was on a stool waiting for lunch when she was trying to sit and fell onto the floor, injured the left wrist and noticed immediate pain and deformity. The patient had pain with any motion of the wrist. She denies any specific numbness or tingling about the fingers. The patient was brought to [facility]. She was found to have a significant displaced distal radius fracture which required a closed reduction in the emergency room which was performed and she was splinted with some reduction of pain, but she continues to have quite a bit of pain. Of note, the patient does have a recent history of a productive cough with yellow sputum. She denies any shortness of breath. She does have some burning on urination and she is going to be seeing neurologist for this. REVIEW OF SYSTEMS A 12-point review of systems is negative except as noted in the history of present illness. MEDICAL HISTORY Positive for: 1. Adrenal insufficiency 2. Valvular heart disease 3. Hypothyroidism 4. Hypertension PAST SURGICAL HISTORY Positive for: 1. Appendectomy 2. Hysterectomy 3. Cervical fusion MEDICATIONS See the chart. NOTE The patient is on aspirin and Imitrex. ALLERGIES Multiple including Glutin, lactose and Meperidine. CURRENT MEDICATIONS See the chart. FAMILY HISTORY Noncontributory SOCIAL HISTORY The patient does not smoke or drink alcohol. PHYSICAL EXAM The patient's temperature is 97.5, heart rate is 102, blood pressure is 143/65, respirations 18. GENERAL: She is awake, alert and oriented times three. She has normal affect, insight and judgment. HEAD, EYES, EARS, NOSE, AND THROAT: Head is atraumatic. Oropharynx is clear. NECK: Supple. CHEST: Muscles are intact. BACK: Shows no CVA tenderness. HEART: Regular rate and rhythm. LUNGS: Clear excision bilaterally. ABDOMEN: Soft, nontender, and nondistended. EXTREMITIES: No obvious wounds were noted about the bilateral upper extremities or bilateral lower extremities. Note that she did have a splint applied to the left upper extremity. She has brisk cap refill about the fingers. She has pain with motion of the fingers, but she does have normal sensation about the fingertips. Lower extremities have normal alignment about the knees and the ankles, but no tenderness. No significant swelling. LABORATORY STUDIES Shows a white cell count of 7.5, hematocrit 31.8, platelets of 162, creatinine 0.95, glucose of 90. IMAGING X-rays of the forearm and the hand ring noted showing a severely displaced interarticular distal radius fracture with comminution. There is a closed reduction films showing much better alignment of the fracture with still some mild angulation and deformity. I reviewed the report as well. IMPRESSION Left distal radius fracture, comminuted, interarticular displaced status post closed reduction. DECISION MAKING I did review the results of the imaging with the patient and we discussed treatment options including operative and nonoperative management. We discussed nonoperative management with the use of a casting. We discussed the potential chance for displacement, especially given the significant amount of deformity that was present during the initial injury which does indicate quite a bit of stripping of the periosteum. There was also comminution which increased the chance for recurrent deformity. We discussed long-term consequences with nonoperative management which could lead potentially to dysfunction of the arm such as weakness, pain or development of arthritis. We discussed open reduction, internal fixation with plates and screws. We discussed particular risks that are associated with this. The patient was particularly sensitive to this because she had a son who did have multiple surgeries on his shoulder and then ultimately from complications. We discuss injury to the median nerve and radial artery including bleeding, infection, loss range of motion in the associated joints, DVT, pulmonary embolus, heart attack, stroke, pneumonia and . The patient does want to move forward with surgical management. All questions have been answered. MD ALONDRA Bo/KATIUSKA /1:01 PM /1:17 PM
--- NOTE | 2017-05-20 14:14 | RADRPT ---
EXAM DATE/TIME: 05/20/2017 12:45 [facility] COMPARISON: WRIST LEFT LIMITED (AP & LAT), May 19, 2017, 17:01. INDICATIONS : Left distal radius fracture repair. OR. MEDICAL HISTORY : Cardiovascular disease. Hypertension SURGICAL HISTORY : Hysterectomy. ENCOUNTER: Initial ACUITY: 1 day PAIN SCORE: Non-responsive. LOCATION: Left wrist FINDINGS: 2 spot intraoperative fluoroscopic views of the left wrist demonstrate a nondisplaced ulnar styloid p rocess fracture and volar plate and screw fixation of the distal radial metaphyseal fracture with exc ellent alignment. CONCLUSION: Postoperative changes. Dalton Victor MD on May 20, 2017 at 14:12 Board Certified Radiologist. This report was verified electronically.
[2017-05-20] MEDS ORDERED: DO NOT ADM ANY ANTICOAGULANT DRUGS PRN (14:15)
[2017-05-20 16:00] VITALS: BP 131/62; PULSE 100; RESP 18; TEMP 97.8; O2SAT 97
[2017-05-20] MEDS: LIOTHYRONINE SODIUM 5 MCG TAB PO SCH (17:58)
[2017-05-20 18:58] VITALS: PULSE 86
--- NOTE | 2017-05-20 19:43 | EKG ---
Date Performed: 05/19/2017 Time Performed: 22:02:30 PTAGE: 81 years EKG: Sinus rhythm WITH SINUS ARRHYTHMIA WITH FIRST DEGREE AV BLOCK LEFT ANTERIOR FASCICULAR BLOCK DELAYED R WAVE PROGR ESSION ABNORMAL ECG PREVIOUS TRACING : 10/28/2016 09.16 Compared to prior tracing no significant change DOCTOR: Venessa Banks Interpretating Date/Time 05/20/2017 19:42:52
[2017-05-20 20:25] VITALS: BP 147/63; PULSE 78; RESP 17; TEMP 96.8; O2SAT 99
[2017-05-20] MEDS: ACETAMINOPHEN/HYDROcodone 325 MG/5 MG TAB PO PRN (20:34)
[2017-05-20] MEDS: DOCUSATE SODIUM 50 MG/SENNA 8.6 MG TAB PO SCH (20:35)
[2017-05-20] MEDS: MIRTAZAPINE 15 MG TAB PO SCH (20:36)
[2017-05-20] MEDS: buPROPion HCL 150 MG SUSTAINED RELEASE TAB PO SCH (20:36)
[2017-05-20] MEDS: SODIUM CHLORIDE 0.9% FLUSH 5 ML FLUSH IVF SCH (20:37)
[2017-05-20] MEDS ORDERED: HYDROCORTISONE 10 MG TAB PO SCH (21:00)
[2017-05-21 00:15] VITALS: BP 135/62; PULSE 62; RESP 17; TEMP 96.6; O2SAT 97
[2017-05-21 04:20] VITALS: BP 129/65; PULSE 70; RESP 16; TEMP 97.3; O2SAT 99
[2017-05-21] MEDS: ACETAMINOPHEN/HYDROcodone 325 MG/5 MG TAB PO PRN (05:10)
[2017-05-21] MEDS: LEVOTHYROXINE SODIUM 88 MCG TAB PO SCH (05:11)
[2017-05-21 06:52] LABS: HEMATOCRIT 28.2 % (35.0-46.0); MEAN CELL VOLUME 88.2 FL (80.0-100.0); MEAN CORPUSCULAR HEMOGLOBIN 31.9 PG (27.0-34.0); PLATELET COUNT 146 TH/MM3 (150-450); WHITE BLOOD COUNT 8.2 TH/MM3 (4.0-11.0)
[2017-05-21 07:15] LABS: BICARBONATE 23.6 MEQ/L (21.0-32.0); POTASSIUM 3.3 MEQ/L (3.5-5.1)
[2017-05-21 07:18] LABS: MEAN CORPUSCULAR HGB CONC 36.2 % (32.0-36.0); REVIEW FLAG FINAL
[2017-05-21 07:50] VITALS: PULSE 75
[2017-05-21 08:00] VITALS: BP_SYST 132; BP_SYST 147; BP_DIAS 63; BP_DIAS 66; PULSE 76; PULSE 80; RESP 16; TEMP 97.1; TEMP 97.6; O2SAT 94; O2SAT 97
[2017-05-21] MEDS ORDERED: POTASSIUM CHLORIDE 10 MEQ CONTROLLED RELEASE TAB PO ONE (08:00)
[2017-05-21] MEDS: DOCUSATE SODIUM 50 MG/SENNA 8.6 MG TAB PO SCH (09:00)
[2017-05-21] MEDS: TROSPIUM 60 MG PO SCH (09:00)
[2017-05-21] MEDS: SODIUM CHLORIDE 0.9% FLUSH 5 ML FLUSH IVF SCH (09:00)
[2017-05-21] MEDS: LIOTHYRONINE SODIUM 5 MCG TAB PO SCH (09:00)
[2017-05-21] MEDS ORDERED: MULTIVITAMINS/MINERALS THERAPEUTIC TAB PO SCH (09:00)
[2017-05-21] MEDS: BECLOMETHASONE DIPROPIONATE 80 MCG/ACT 8.7 GM INHALER INH SCH (09:00)
[2017-05-21] MEDS: PANTOPRAZOLE SOD 20 MG DELAYED RELEASE TAB PO SCH (10:32)
[2017-05-21] MEDS: CARVEDILOL 6.25 MG TAB PO SCH (10:32)
[2017-05-21] MEDS: buPROPion HCL 150 MG SUSTAINED RELEASE TAB PO SCH (10:32)
[2017-05-21] MEDS: SERTRALINE HCL 50 MG TAB PO SCH (10:33)
[2017-05-21] MEDS: HYDROCORTISONE 10 MG TAB PO SCH ×2 (10:42→12:00)
[2017-05-21 12:00] VITALS: BP 166/86; PULSE 79; RESP 16; TEMP 99; O2SAT 99
--- NOTE | 2017-05-21 12:32 | PD.ORT.PN ---
Subjective Post Op Day #: 1 Subjective Remarks The patient is resting in bed in NAD. Patient reports moderate left wrist pain. Objective Vitals Vital Signs Date Time Temp Pulse Resp B/P (MAP) Pulse Ox O2 Delivery O2 Flow Rate FiO2 05/21/17 06:09 21 05/21/17 04:20 97.3 70 16 129/65 (86) 99 05/21/17 00:15 96.6 62 17 135/62 (86) 97 05/20/17 20:25 96.8 78 17 147/63 (91) 99 05/20/17 18:58 86 05/20/17 16:00 97.8 100 18 131/62 (85) 97 05/20/17 14:00 97.4 99 14 150/56 (87) 100 Nasal Cannula 2 05/20/17 13:45 82 14 150/70 (96) 100 Nasal Cannula 2 05/20/17 13:30 93 14 182/81 (114) 99 Nasal Cannula 2 05/20/17 13:15 97.4 102 14 194/90 (124) 96 Nasal Cannula 4 I/O 05/20/17 05/20/17 05/20/17 05/21/17 05/21/17 05/21/17 06:59 14:59 22:59 06:59 14:59 22:59 Intake Total 480 ml 550 ml 240 ml 480 ml Output Total 10 ml Balance 480 ml 540 ml 240 ml 480 ml Intake Oral 480 ml 0 ml 240 ml 480 ml Other 550 ml Output Estimated Blood Loss 10 ml # Voids 3 2 2 4 # Bowel Movements 0 1 0 0 Result Diagram: 05/21/17 0605/21/17 0605 Procedures left wrist ORIF of distal radius fracture Objective Remarks The patient's splint and dressing is intact. EPL/APB/KENAN intact. 2+ pedal pulse. + SILT. BCR X 5. Assessment & Plan Ortho Post Op Day #: 1 Problem List: Assessment and Plan POD #1: Left wrist ORIF of distal radius fracture 1. Maintain splint and sling 2. Ice to the left wrist PRN 3. Stable for discharge home today per ortho 4. F/U in the office in 1-[address] Anglin or RADHA Dc Daniel Scott ARNP May 21, 2017 12:32
[2017-05-21] MEDS ORDERED: DOCU100C PO (14:12)
--- NOTE | 2017-05-21 14:16 | HHI.DS ---
Discharge Summary Admission Date May 19, 2017 at 18:36 Discharge Date: May 21, 2017 Admitting Diagnosis left distal radius and ulnar fractures, fall (1) Wrist fracture, left ICD Code: S62.102A - Fracture of unspecified carpal bone, left wrist, initial encounter for closed fracture Diagnosis: Principal Status: Acute (2) Adrenal insufficiency ICD Code: E27.40 - Chronic adrenal insufficiency Diagnosis: Principal Status: Chronic (3) Hypothyroidism ICD Code: E03.9 - Hypothyroidism Diagnosis: Principal Status: Chronic (4) Asthma ICD Code: J45.909 - Unspecified asthma, uncomplicated Diagnosis: Principal Procedures Surgical repair of left distal radius and distal ulna fractures. Brief History - From Admission Written by Muriel Steele, acting as scribe for Dr. Logan on 05/19/17 at 21:56. Waiting for lunch that was ordered "to go" and stool swirled around while she was trying to sit and she fell on the tile floor. Denies syncope prior to fall but states that she hit her head. Denies anticoagulation other than daily aspirin at home. She had severe left wrist pain following the fall. Denies nausea, vomiting, diarrhea, fevers. States she's had a productive cough with yellow sputum for about a week but feels like she's gotten over it. Denies chest pain, shortness of breath. Denies red stool. Stools are dark due to supplemental iron. Burning and pain with urination. Has an appointment with a urologist next week. CBC/BMP: 05/21/17 0605 05/21/17 0605 Significant Findings Laboratory Tests Test 05/19/17 15:15 05/21/17 06:05 Red Blood Count 3.61 MIL/MM3 (4.00-5.30) 3.20 MIL/MM3 (4.00-5.30) Hemoglobin 11.3 GM/DL (11.6-15.3) 10.2 GM/DL (11.6-15.3) Hematocrit 31.8 % (35.0-46.0) 28.2 % (35.0-46.0) Neutrophils (%) (Auto) 86.0 % (16.0-70.0) Lymphocytes (%) (Auto) 7.1 % (9.0-44.0) Lymphocytes # (Auto) 0.5 TH/MM3 (1.0-4.8) Calcium Level 8.2 MG/DL (8.5-10.1) 8.4 MG/DL (8.5-10.1) Sodium Level 134 MEQ/L (136-145) 135 MEQ/L (136-145) Estimat Glomerular Filtration Rate 56 ML/MIN (>89) 56 ML/MIN (>89) Mean Corpuscular Hemoglobin Concent 36.2 % (32.0-36.0) Platelet Count 146 TH/MM3 (150-450) Potassium Level 3.3 MEQ/L (3.5-5.1) Hospital Course Mrs. Mckeon is an 81 year old female admitted with a left wrist fracture which could not be reduced in the ER. She is now post op with a repaired fracture and doing well. Functional status is present and she is medically stable for discharge to home today. Pt Condition on Discharge: Stable Discharge Disposition: Discharge Home Discharge Time: <= 30 minutes Discharge Instructions Activities you can perform: Weight Bearing as Salvatore Follow up Referrals: Orthopedics - 2 Weeks PCP Follow-up - 1 Week New Medications: Docusate Sodium (Docusate Sodium) 100 Mg Cap 100 MG PO BID PRN for CONSTIPATION, #60 CAP 0 Refills Hydrocodone-Acetaminophen ([place]) 5-325 mg Tab 1-2 TAB PO Q4H PRN for PAIN, #40 TAB 0 Refills Continued Medications: Beclomethasone Inh (Qvar Inh) 80 Mcg/Act Aero 1 PUFF INH BID for Asthma Management, #1 INHALER 0 Refills Bupropion HCl ER 12 HR (Wellbutrin SR 12 HR) 150 Mg Tab 150 MG PO Q12HR for Control Depression, TAB 0 Refills Carvedilol ER 24 HR (Coreg Cr 24 HR) 20 Mg Cap 20 MG PO DAILY, #30 CAP 0 Refills Diazepam (Valium) 5 Mg Tab 5 MG PO DAILY PRN for ANXIETY, TAB 0 Refills Hydrocortisone (Cortef) 5 Mg Tab 12.5 MG PO DAILY IN THE MORNING for ADRENAL INSUFFICIENCY, #30 TAB 0 Refills Take with food to decrease GI upset Hydrocortisone (Cortef) 5 Mg Tab 5 MG PO DAILY @ 1200 for ADRENAL INSUFFICIENCY, #30 TAB 0 Refills Take with food to decrease GI upset Hydrocortisone (Cortef) 5 Mg Tab 2.5 MG PO HS for ADRENAL INSUFFICIENCY, #60 TAB 0 Refills Take with food to decrease GI upset Levothyroxine (Synthroid) 88 Mcg Tab 88 MCG PO DAILY for Thyroid, #30 TAB 0 Refills Liothyronine (Liothyronine) 5 Mcg Tab 5 MCG PO DAILY for Thyroid Supplement, #30 TAB 0 Refills Meclizine HCl (Meclizine 25) 25 Mg Tab 25 MG PO BID PRN for VERTIGO Mirtazapine (Mirtazapine) 15 Mg Tab 15 MG PO HS for Depression Control, #30 TAB 0 Refills Omeprazole (Omeprazole) 20 Mg Cap 20 MG PO DAILY Potassium Chloride ER (Potassium Chloride ER) 10 Meq Cap Unknown Dose PO DAILY for Electrolyte Replacement, #30 CAP 0 Refills Sertraline (Zoloft) 50 Mg Tab 50 MG PO DAILY, #30 TAB 0 Refills Sumatriptan (Imitrex) 100 Mg Tab 100 MG PO DIRECTED PRN for MIGRAINE HEADACHE, TAB 0 Refills If a satisfactory response has not been obtained at 2 hours, a second dose may be administered Trospium ER (Trospium ER) 60 Mg Cap 60 MG PO DAILY for Urinary Symptom Managemen, #30 CAP 0 Refills Discontinued Medications: Hydrocodone-Acetaminophen (Lortab) 10-325 Mg Tab 1 TAB PO Q6H PRN for MIGRAINE HEADACHE, TAB 0 Refills Antonio Guerrero MD May 21, 2017 14:16
== END 2017-05-21 17:06 | disposition home or self-care (01) | DRG 511 ==
LOC: NEPC 14:48 → NEDH 17:53 → OBSVTOIN 18:36 → N06B 21:29
PROVIDERS: ADMIT Hospitalist; ATTEND Hospitalist
PROC: 0HQ1XZZ Repair Face Skin, External Approach (ICD-10-PCS; 2017-05-19)
PROC: 0RSPXZZ Reposition Left Wrist Joint, External Approach (ICD-10-PCS; 2017-05-19)
PROC: 0PSJ04Z Reposition Left Radius with Internal Fixation Device, Open Approach (ICD-10-PCS; principal; 2017-05-20 11:43)
DX: S52.572A Other intraarticular fracture of lower end of left radius, initial encounter for closed fracture (principal); E27.40 Unspecified adrenocortical insufficiency; S52.512A Displaced fracture of left radial styloid process, initial encounter for closed fracture; I10 Essential (primary) hypertension; F32.9 Major depressive disorder, single episode, unspecified; F41.9 Anxiety disorder, unspecified; W07.XXXA Fall from chair, initial encounter; J45.909 Unspecified asthma, uncomplicated; K21.9 Gastro-esophageal reflux disease without esophagitis; G89.29 Other chronic pain; M54.9 Dorsalgia, unspecified; E03.9 Hypothyroidism, unspecified; S01.112A Laceration without foreign body of left eyelid and periocular area, initial encounter; S52.612A Displaced fracture of left ulna styloid process, initial encounter for closed fracture
CPT/HCPCS: 12011; 25680; 70450; 73090; 73100; 73120; 76000; 80048; 85025; 85027; 85610; 85730; 93005; 96374; 96375; 99152; 99153; C1713; J0131; J0690; J1170; J1580; J1720; J2270; J2370; J2405; J3010; J3370; J7030; J7050

== ENCOUNTER 2017-08-21 09:02 | Emergency (ER) | payer MEDICARE, BC ==
[~2017-08-21] VITALS: Ht 157.5 cm; Wt 48.2 kg
[~2017-08-21 09:02] MED LIST changes: -ASPI1TAB69 PO; +DOCU100C15 PO; -HYDR-3535 PO; +NORC5TAB PO; +POTA10CA PO
[2017-08-21 09:08] VITALS: BP 191/81; PULSE 62; RESP 16; TEMP 97.2; O2SAT 100
[2017-08-21] MEDS ORDERED: HYDR5TAB64 PO (09:31)
[2017-08-21] MEDS ORDERED: FERR324T8 PO (09:35)
[2017-08-21] MEDS ORDERED: ASPI-516 CHEW (09:35)
[2017-08-21] MEDS ORDERED: LEVO.1 PO (09:35)
[2017-08-21] MEDS ORDERED: LIBRAX PO (09:35)
[2017-08-21] MEDS ORDERED: HYDR-3580 PO (09:35)
[2017-08-21] MEDS ORDERED: ZOLP5TAB3 PO (09:35)
[2017-08-21] MEDS ORDERED: AMIT25TA9 PO (09:35)
[2017-08-21] MEDS ORDERED: KETOROLAC TROMETHAMINE 60 MG/2 ML (IM) VIAL IM ONE (10:00)
--- NOTE | 2017-08-21 10:30 | PD ---
HPI Chief Complaint: Back/ Neck Pain or Injury Time Seen by Provider: 09:49 Travel History International Travel<30 days: No Contact w/Intl Traveler<30days: No Traveled to known affect area: No History of Present Illness HPI 82-year-old female with history of chronic back pain and sciatica presents emergency department for evaluation of back pain 3 days. She denies injury or trauma. Pain began approximately 3-4 days ago. She reports on 08/19/17 she saw her chiropractor who adjusted her back. She had symptom relief after the appointment. She reports the pain returned yesterday prompting her visit today. She describes the pain as aching and similar to her previous pain. Pain is worse with twisting of the back and bending. Pain is slightly relieved with rest. She denies fever, incontinence, saddle anesthesia, paresthesia or weakness of the extremities. She reports the pain radiates into the left leg. She has not taken anything for the pain. Symptom severity is moderate. PFSH Past Medical History Hx Anticoagulant Therapy: Yes (ASA) Asthma: Yes Autoimmune Disease: No Blood Disorders: No Anxiety: Yes Depression: Yes Heart Rhythm Problems: No Cancer: No Cardiac Catheterization: Yes Cardiovascular Problems: Yes High Cholesterol: No Chemotherapy: No Chest Pain: Yes Congestive Heart Failure: No COPD: No Diabetes: No Diminished Hearing: No Diverticulitis: Yes Endocrine: Yes Gastrointestinal Disorders: Yes GERD: Yes Headaches: Yes Hypertension: Yes Immune Disorder: No Implanted Vascular Access Dvce: No Musculoskeletal: Yes (spinal stenosis, chronic back pain) Neurologic: Yes (neck was fused to help with severe migraines.) Psychiatric: Yes (PTSD) Reproductive: No Respiratory: Yes (Asthma) Migraines: Yes Myocardial Infarction: No Radiation Therapy: No Sleep Apnea: No Thyroid Disease: Yes (HYPO) Influenza Vaccination: Yes ?: Not Menopausal: Yes Past Surgical History Abdominal Surgery: Yes (COLON RESECTION) Appendectomy: Yes Cholecystectomy: No Genitourinary Surgery: Yes (BLADDER SLING) Gynecologic Surgery: Yes (HYSTERECTEMY) Hysterectomy: Yes Neurologic Surgery: Yes (FUSION C5-C6) Other Surgery: Yes (appendectomy ) Social History Alcohol Use: No Tobacco Use: No Substance Use: No Allergies-Medications (Allergen,Severity, Reaction): Coded Allergies: Sulfa (Sulfonamide Antibiotics) (Verified Allergy, Severe, HIVES, SWELLING , 08/21/17) gluten (Unverified Allergy, Severe, Cramping, 08/21/17) PT DESCRIBES SEVERE STOMACH CRAMPS AFTER EATING GLUTEN lactose (Unverified Allergy, Mild, Diarrhea, 08/21/17) meperidine (Unverified Adverse Reaction, Mild, nausea, 08/21/17) Reported Meds & Prescriptions Reported Meds & Active Scripts Active Docusate Sodium 100 Mg Cap 100 Mg PO BID PRN Reported Ferrous Fumarate 324 Mg (106 Mg Iron) Tab 325 Mg PO DAILY Hydrocodone-Acetamin 7.5-325 (Hydrocodone/Acetaminophen) 7.5 Mg-325 Mg Tablet 1 Tab PO DIRECTED Aspirin 81 Mg Chew 81 Mg CHEW DAILY Librax (Chlordiazepoxide/Clidinium) 5-2.5 Mg Cap 1 Cap PO QID Amitriptyline (Amitriptyline HCl) 25 Mg Tab 25 Mg PO HS Zolpidem (Zolpidem Tartrate) 5 Mg Tab 5 Mg PO HS PRN Synthroid (Levothyroxine Sodium) 100 Mcg Tab 100 Mcg PO DAILY Hydrocortisone 5 Mg Tab 5 Mg PO HS Take with food to decrease GI upset Wellbutrin SR 12 HR (Bupropion HCl) 150 Mg Tab 150 Mg PO Q12HR Coreg Cr 24 HR (Carvedilol) 20 Mg Cap 20 Mg PO DAILY Cortef (Hydrocortisone) 5 Mg Tab 10 Mg PO DAILY Take with food to decrease GI upset Valium (Diazepam) 5 Mg Tab 5 Mg PO DAILY PRN Meclizine 25 (Meclizine HCl) 25 Mg Tab 25 Mg PO BID PRN Liothyronine (Liothyronine Sodium) 5 Mcg Tab 5 Mcg PO DAILY Mirtazapine 15 Mg Tab 15 Mg PO HS Zoloft (Sertraline HCl) 50 Mg Tab 50 Mg PO DAILY Imitrex (Sumatriptan Succinate) 100 Mg Tab 100 Mg PO DIRECTED PRN If a satisfactory response has not been obtained at 2 hours, a second dose may be administered Trospium ER 60 Mg Cap 60 Mg PO DAILY Qvar Inh (Beclomethasone Dipropionate) 80 Mcg/Act Aero 1 Puff INH BID Review of Systems Except as stated in HPI: all other systems reviewed are Neg General / Constitutional: No: Fever Eyes: No: Visual changes HENT: No: Headaches Cardiovascular: No: Chest Pain or Discomfort Respiratory: No: Shortness of Breath Gastrointestinal: No: Abdominal Pain Genitourinary: No: Dysuria Neurologic: No: Weakness Physical Exam Narrative GENERAL: Alert, well-appearing elderly female in no acute distress. Patient ambulated into the emergency Department with steady gait. SKIN: Focused skin assessment warm/dry. HEAD: Atraumatic. Normocephalic. EYES: Pupils equal and round. No scleral icterus. No injection or drainage. ENT: No nasal bleeding or discharge. Mucous membranes pink and moist. NECK: Trachea midline. No JVD. CARDIOVASCULAR: Regular rate and rhythm. No murmur appreciated. RESPIRATORY: No accessory muscle use. Clear to auscultation. Breath sounds equal bilaterally. GASTROINTESTINAL: Abdomen soft, non-tender, nondistended. Hepatic and splenic margins not palpable. MUSCULOSKELETAL: No obvious deformities. No clubbing. No cyanosis. No edema. BACK: No CVA tenderness. No rash. Tenderness over the thoracic spine. No tenderness over the cervical or lumbar spine. Tenderness to the lumbar paraspinous musculature. NEUROLOGICAL: Awake and alert. No obvious cranial nerve deficits. Motor grossly within normal limits. Normal speech. Normal strength and sensation of lower extremity. PSYCHIATRIC: Appropriate mood and affect; insight and judgment normal. Data Data Last Documented VS Vital Signs Date Time Temp Pulse Resp B/P (MAP) Pulse Ox O2 Delivery O2 Flow Rate FiO2 08/21/17 09:08 97.2 62 16 191/81 (117) 100 Orders Orders Spine, Thoracic-Ap/Lat/Sw(3vw) (08/21/17 ) Ketorolac Inj (Toradol Inj) (08/21/17 10:00) MDM Medical Decision Making Medical Screen Exam Complete: Yes Emergency Medical Condition: Yes Differential Diagnosis Mid/low back strain, fracture, sciatica Narrative Course 82-year-old female with history of chronic back pain and sciatica here for evaluation of acute back pain. She reports the pain is similar to her previous flares. She denies injury trauma. Pain began proximal my 4 days ago. 2 days ago she saw her chiropractor and was adjusted which relieved the symptoms. Pain returned yesterday prompting her visit today. She has a normal neurologic exam. She does have some mild thoracic spine tenderness on exam. X-ray will be obtained to rule out fracture. He will be given IM Toradol and observed in the ER On Reevaluation patient reports symptom improvement. Her pain is greatly relieved. X-ray findings discussed with patient. She reports that she has Tylenol 3 at home which she usually takes for her back pain. Is instructed to follow-up with her primary doctor this week. Diagnosis Primary Impression: Back pain Qualified Codes: M54.42 - Lumbago with sciatica, left side; G89.29 - Other chronic pain Referrals: Primary Care Physician Additional Instructions: Take your pain medication as prescribed. You may take [id number] ibuprofen or Aleve. Follow-up with her primary doctor for recheck. Return to emergency department if he developed new or worsening symptoms. Disposition: 01 DISCHARGE HOME Condition: Stable Mindy Moses Aug 21, 2017 10:30
--- NOTE | 2017-08-21 10:34 | RADRPT ---
EXAM DATE/TIME: 08/21/2017 10:19 [facility] COMPARISON: No previous studies available for comparison. INDICATIONS : Back pain post chiropractor visit. MEDICAL HISTORY : Asthma SURGICAL HISTORY : Fusion, cervical. ENCOUNTER: Initial ACUITY: 2 days PAIN SCORE: 10/10 LOCATION: middle thoracic spine FINDINGS: Diffuse osteopenia. Anterior plate and screw fixation at C5-6. Grade 1 anterolisthesis of C3 on C4. T horacic vertebral body heights are intact. No evidence for significant acute bony fracture. Sagittal alignment is maintained. Pedicles are intact at all levels. The paravertebral reflections are not th ickened. Visualized portions of lungs are clear. CONCLUSION: 1. Anterior plate and screw fixation at C5-6 with mild grade 1 anterolisthesis of C3 on C4, likely de generative. Further evaluation with flexion and extension views may be performed if there is concern regarding ligamentous instability. 2. No acute fracture or subluxation in the thoracic spine. Robinson Rob MD on August 21, 2017 at 10:30 Board Certified Radiologist. This report was verified electronically.
[2017-08-21 11:00] VITALS: BP 178/92
[2017-08-21] MEDS ORDERED: ORPHENADRINE INJ 60 MG/2 ML AMP IM ONE (11:00)
== END 2017-08-21 11:16 | disposition home or self-care (01) ==
LOC: PHEFT 09:02
DX: M54.42 Lumbago with sciatica, left side (principal); G89.29 Other chronic pain; E03.9 Hypothyroidism, unspecified; I10 Essential (primary) hypertension
CPT/HCPCS: 72072; 96372; 99284; J1885; J2360

== ENCOUNTER 2017-12-28 15:48 | Observation (INO) | payer MEDICARE, BC ==
[~2017-12-28] VITALS: Ht 157.5 cm; Wt 48.0 kg
[~2017-12-28 15:48] MED LIST changes: +AMIT25TA9 PO; +ASPI-516 CHEW; +FERR324T8 PO; +HYDR-3580 PO; +HYDR5TAB64 PO; +LEVO.1 PO; +LIBRAX PO; -NORC5TAB PO; -OMEP20CA2 PO; -POTA10CA PO; -SYNT88TA PO; +ZOLP5TAB3 PO
[2017-12-28 15:53] VITALS: BP 180/111; PULSE 111; RESP 16; TEMP 98.6; O2SAT 100
[2017-12-28 15:55] VITALS: RESP 18; O2SAT 97
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
[2017-12-28 16:00] VITALS: BP 196/117; PULSE 100; RESP 18; O2SAT 99
[2017-12-28] MEDS ORDERED: LIDOCAINE HCL 2% 50 ML VIAL NERV BLOCK ONE (16:00)
[2017-12-28] MEDS ORDERED: SODIUM CHLORIDE 0.9% FLUSH 10 ML FLUSH IVF PRN (16:00)
--- NOTE | 2017-12-28 16:02 | PD ---
Data Data Last Documented VS Vital Signs Date Time Temp Pulse Resp B/P (MAP) Pulse Ox O2 Delivery O2 Flow Rate FiO2 12/28/17 20:00 16 12/28/17 19:19 81 153/73 (99) 99 Room Air 12/28/17 15:53 98.6 Orders Orders Complete Blood Count With Diff (12/28/17 15:55) Prothrombin Time / Inr (Pt) (12/28/17 15:55) Act Partial Throm Time (Ptt) (12/28/17 15:55) Chest, Single Ap (12/28/17 15:55) Ct Brain W/O Iv Contrast(Rout) (12/28/17 15:55) Ct Cerv Spine W/O Contrast (12/28/17 15:55) Ct Facial Bones W/O Iv Cont (12/28/17 15:55) Iv Access Insert/Monitor (12/28/17 15:55) Ecg Monitoring (12/28/17 15:55) Oximetry (12/28/17 15:55) Oxygen Administration (12/28/17 15:55) Magnesium (Mg) (12/28/17 15:55) Ckmb (Isoenzyme) Profile (12/28/17 15:55) Troponin I (12/28/17 15:55) Urinalysis - C+S If Indicated (12/28/17 15:55) Sodium Chloride 0.9% Flush (Ns Flush) (12/28/17 16:00) Ct Lumb Spine W/O Contrast (12/28/17 ) Lidocaine 2% Inj (Xylocaine 2% Inj) (12/28/17 16:00) Acetaminophen (Tylenol) (12/28/17 16:15) Comprehensive Metabolic Panel (12/28/17 17:48) Morphine Inj (Morphine Inj) (12/28/17 18:00) Sodium Chlor 0.9% 1000 Ml Inj (Ns 1000 M (12/28/17 20:15) Admit Order (Ed Use Only) (12/28/17 21:49) Labs Laboratory Tests Test 12/28/17 16:02 12/28/17 17:51 White Blood Count 9.1 TH/MM3 Red Blood Count 3.99 MIL/MM3 Hemoglobin 12.3 GM/DL Hematocrit 34.6 % Mean Corpuscular Volume 86.7 FL Mean Corpuscular Hemoglobin 30.9 PG Mean Corpuscular Hemoglobin Concent 35.7 % Red Cell Distribution Width 13.2 % Platelet Count 347 TH/MM3 Mean Platelet Volume 8.4 FL Neutrophils (%) (Auto) 79.7 % Lymphocytes (%) (Auto) 12.0 % Monocytes (%) (Auto) 5.9 % Eosinophils (%) (Auto) 1.9 % Basophils (%) (Auto) 0.5 % Neutrophils # (Auto) 7.2 TH/MM3 Lymphocytes # (Auto) 1.1 TH/MM3 Monocytes # (Auto) 0.5 TH/MM3 Eosinophils # (Auto) 0.2 TH/MM3 Basophils # (Auto) 0.0 TH/MM3 CBC Comment DIFF FINAL Differential Comment Prothrombin Time 10.4 SEC Prothromb Time International Ratio 1.0 RATIO Activated Partial Thromboplast Time 25.7 SEC Blood Urea Nitrogen 14 MG/DL Creatinine 1.35 MG/DL Random Glucose 94 MG/DL Total Protein 7.0 GM/DL Albumin 4.0 GM/DL Calcium Level 8.9 MG/DL Alkaline Phosphatase 101 U/L Aspartate Amino Transf (AST/SGOT) 19 U/L Alanine Aminotransferase (ALT/SGPT) 19 U/L Total Bilirubin 0.8 MG/DL Sodium Level 133 MEQ/L Potassium Level 4.8 MEQ/L Chloride Level 103 MEQ/L Carbon Dioxide Level 20.3 MEQ/L Anion Gap 10 MEQ/L Estimat Glomerular Filtration Rate 37 ML/MIN Magnesium Level 2.0 MG/DL Total Creatine Kinase 31 U/L Troponin I LESS THAN 0.02 NG/ML Urine Color LIGHT-YELLOW Urine Turbidity CLEAR Urine pH 7.0 Urine Specific [place] 1.008 Urine Protein NEG mg/dL Urine Glucose (UA) NEG mg/dL Urine Ketones NEG mg/dL Urine Occult Blood NEG Urine Nitrite NEG Urine Bilirubin NEG Urine Urobilinogen LESS THAN 2.0 MG/DL Urine Leukocyte Esterase NEG Urine RBC 1 /hpf Urine WBC LESS THAN 1 /hpf Urine Squamous Epithelial Cells 1 /hpf Microscopic Urinalysis Comment CULT NOT INDICATED MDM Supervised Visit with EMERALD: Yes Narrative Course I, Dr. Montalvo, have reviewed the advance practice practitioner's documentation and am in agreement, met with the patient face to face, made the diagnosis, and the medical decision making was done by me. *My assessment and Findings: This is an 82-year-old female presents emergency department for evaluation of back pain, she was coming in to be evaluated for back pain when she had a trip and fall just outside of her building, she had a laceration to the front of her head, CAT scans were negative. She is neurologically intact. Marty Montalvo MD Dec 28, 2017 16:02
[2017-12-28] MEDS ORDERED: ACETAMINOPHEN 500 MG CPLT PO ONE (16:15)
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
[2017-12-28 16:53] LABS: AUTOMATED NEUTROPHIL # 7.2 TH/MM3 (1.8-7.7); BASOPHIL % 0.5 % (0.0-2.0); EOSINOPHIL # 0.2 TH/MM3 (0-0.4); EOSINOPHIL % 1.9 % (0.0-4.0); HEMATOCRIT 34.6 % (35.0-46.0); HEMOGLOBIN 12.3 GM/DL (11.6-15.3); LYMPHOCYTE # 1.1 TH/MM3 (1.0-4.8); MEAN CELL VOLUME 86.7 FL (80.0-100.0); MEAN CORPUSCULAR HEMOGLOBIN 30.9 PG (27.0-34.0); MEAN CORPUSCULAR HGB CONC 35.7 % (32.0-36.0); MEAN PLATELET VOLUME 8.4 FL (7.0-11.0); MONO % 5.9 % (0.0-8.0); MONOCYTE # 0.5 TH/MM3 (0-0.9); NEUT % 79.7 % (16.0-70.0); PLATELET COUNT 347 TH/MM3 (150-450); RED BLOOD COUNT 3.99 MIL/MM3 (4.00-5.30); RED CELL DISTRIBUTION WIDTH 13.2 % (11.6-17.2); WHITE BLOOD COUNT 9.1 TH/MM3 (4.0-11.0)
[2017-12-28 17:02] LABS: PROTHROMBIN TIME - PATIENT 10.4 SEC (9.8-11.6)
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
[2017-12-28 17:17] LABS: TROPONIN I LESS THAN 0.02 NG/ML (0.02-0.05)
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
[2017-12-28 18:00] VITALS: BP 190/93; PULSE 88; RESP 16; O2SAT 99
[2017-12-28] MEDS ORDERED: MORPHINE SULFATE 2 MG/ML SYRINGE IV PUSH ONE (18:00)
[2017-12-28 18:39] LABS: BILIRUBIN, URINE NEG (NEG); BLOOD, URINE NEG (NEG); GLUCOSE,URINE NEG (NEG); KETONE, URINE NEG (NEG); NITRITE,URINE NEG (NEG); SQUAMOUS EPITHELIAL CELL URINE 1 /hpf (0-5); URINE COLOR LIGHT-YELLOW (YELLW/STRAW); URINE LEUKOCYTE ESTERASE NEG (NEG)
[2017-12-28 19:19] VITALS: BP 153/73; PULSE 81; RESP 18; O2SAT 99
[2017-12-28 19:30] LABS: AST (GOT) 19 U/L (15-37); BICARBONATE 20.3 MEQ/L (21.0-32.0); BLOOD UREA NITROGEN 14 MG/DL (7-18); CALCIUM 8.9 MG/DL (8.5-10.1); CHLORIDE 103 MEQ/L (98-107); CREATININE 1.35 MG/DL (0.50-1.00); GLOMERULAR FILTRATION RATE 37 ML/MIN (>89); GLUCOSE,RANDOM 94 MG/DL (74-106); SODIUM (NA) 133 MEQ/L (136-145)
[2017-12-28 19:31] LABS: ALT (GPT) 19 U/L (10-53)
[2017-12-28 19:33] LABS: ALKALINE PHOSPHATASE 101 U/L (45-117); TOTAL BILIRUBIN ADULT 0.8 MG/DL (0.2-1.0)
[2017-12-28] MEDS ORDERED: SODIUM CHLOR 0.9% 1000 ML INJ 1,000 ML IV ONE (20:15)
[2017-12-28 22:48] VITALS: BP 151/81; PULSE 91; RESP 16; O2SAT 99
[2017-12-29] MEDS ORDERED: SENNOSIDES 8.6 MG TAB PO PRN
[2017-12-29] MEDS ORDERED: ONDANSETRON HCL 4 MG/2 ML VIAL IVP PRN
[2017-12-29] MEDS ORDERED: BISACODYL 10 MG SUPP RECTAL PRN
[2017-12-29] MEDS ORDERED: ACETAMINOPHEN 325 MG TAB PO PRN
[2017-12-29] MEDS ORDERED: MAGNESIUM HYDROXIDE SUSP 30 ML CUP PO PRN
[2017-12-29] MEDS ORDERED: LACTULOSE SYRUP 20 GM/30 ML CUP PO PRN
[2017-12-29] MEDS ORDERED: SODIUM CHLORIDE 0.9% FLUSH 10 ML FLUSH IV FLUSH PRN
[2017-12-29] MEDS ORDERED: NALOXONE HCL 0.4 MG/ML AMP IV PUSH PRN
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
[2017-12-29] MEDS: SODIUM CHLOR 0.9% 1000 ML INJ 1,000 ML IV SCH ×2 (00:16→15:26)
[2017-12-29] MEDS: HEPARIN SODIUM - SQ 10,000 UNITS/ML VIAL SQ SCH ×3 (00:21→22:54)
[2017-12-29 03:47] VITALS: BP_SYST 128; BP_SYST 140; BP_SYST 156; BP_DIAS 63; BP_DIAS 70; BP_DIAS 75; RESP 16; RESP 18
[2017-12-29 05:50] LABS: AUTOMATED NEUTROPHIL # 4.9 TH/MM3 (1.8-7.7); BASOPHIL % 0.5 % (0.0-2.0); EOSINOPHIL # 0.1 TH/MM3 (0-0.4); HEMATOCRIT 27.1 % (35.0-46.0); HEMOGLOBIN 9.7 GM/DL (11.6-15.3); LYMPH % 13.4 % (9.0-44.0); LYMPHOCYTE # 0.9 TH/MM3 (1.0-4.8); MEAN CELL VOLUME 86.7 FL (80.0-100.0); MEAN CORPUSCULAR HGB CONC 35.8 % (32.0-36.0); MEAN PLATELET VOLUME 8.2 FL (7.0-11.0); MONO % 8.2 % (0.0-8.0); MONOCYTE # 0.5 TH/MM3 (0-0.9); NEUT % 75.9 % (16.0-70.0); PLATELET COUNT 213 TH/MM3 (150-450); RED BLOOD COUNT 3.13 MIL/MM3 (4.00-5.30); RED CELL DISTRIBUTION WIDTH 12.9 % (11.6-17.2); WHITE BLOOD COUNT 6.5 TH/MM3 (4.0-11.0)
[2017-12-29 06:28] LABS: BICARBONATE 22.1 MEQ/L (21.0-32.0); CALCIUM 8.2 MG/DL (8.5-10.1); CREATININE 0.93 MG/DL (0.50-1.00)
[2017-12-29] MEDS: LEVOTHYROXINE SODIUM 100 MCG TAB PO SCH (06:40)
[2017-12-29 09:00] VITALS: BP 146/71; PULSE 82; RESP 16; O2SAT 98
[2017-12-29] MEDS ORDERED: TROSPIUM 60 MG PO SCH (09:00)
[2017-12-29] MEDS ORDERED: chlordiazePOXIDE/CLIDINIUM 5 MG/2.5 MG CAP PO SCH (09:00)
[2017-12-29] MEDS: ASPIRIN 81 MG CHEW TAB CHEW SCH (10:23)
[2017-12-29] MEDS: CARVEDILOL 6.25 MG TAB PO SCH ×2 (10:23→21:00)
[2017-12-29] MEDS: BECLOMETHASONE DIPROPIONATE 80 MCG/ACT 8.7 GM INHALER INH SCH ×2 (10:58→21:00)
[2017-12-29] MEDS: FERROUS FUMARATE 325 MG TAB (106 MG ELEMENTAL IRON) PO SCH (10:59)
[2017-12-29] MEDS: DOCUSATE SODIUM 50 MG/SENNA 8.6 MG TAB PO SCH ×2 (11:00→21:00)
[2017-12-29] MEDS: SERTRALINE HCL 50 MG TAB PO SCH (11:01)
[2017-12-29] MEDS: HYDROCORTISONE 10 MG TAB PO SCH ×4 (11:01→15:25)
[2017-12-29 11:29] VITALS: BP 146/70
[2017-12-29 11:35] VITALS: BP 122/56; PULSE 89; RESP 18; TEMP 97.6; O2SAT 100
[2017-12-29] MEDS: SODIUM CHLORIDE 0.9% FLUSH 10 ML FLUSH IV FLUSH SCH ×2 (12:40→21:00)
--- NOTE | 2017-12-29 13:46 | HHI.PR ---
Subjective Remarks Patient states feels much better. states weakness is improving. Denies chest pain and sob. states feels much better and would like to go home. Afebrile. Objective Vitals Vital Signs Date Time Temp Pulse Resp B/P (MAP) Pulse Ox O2 Delivery O2 Flow Rate FiO2 12/29/17 11:35 97.6 89 18 122/56 (78) 100 12/29/17 11:29 78 18 146/70 (95) 98 12/29/17 09:00 82 16 146/71 (96) 98 Room Air 12/29/17 04:54 16 12/29/17 03:47 72 16 156/75 (102) 76 16 140/70 (93) 78 18 128/63 (84) 12/28/17 22:48 91 16 151/81 (104) 99 Room Air 12/28/17 20:00 16 12/28/17 20:00 16 12/28/17 19:19 81 18 153/73 (99) 99 Room Air 12/28/17 18:00 88 16 190/93 (125) 99 Room Air 12/28/17 16:00 100 18 196/117 (143) 99 Room Air 12/28/17 15:55 18 97 Room Air 12/28/17 15:55 98 Room Air 12/28/17 15:53 98.6 111 16 180/111 (134) 100 Result Diagram: 12/29/175 12/29/17414 Imaging Last Impressions Maxillofacial CT 12/28/171554 Signed Impressions: Service Date/Time: Thursday, December 28, 2017 16:24 - CONCLUSION: Large right supraorbital scalp hematoma. No fracture seen. Home Anders MD Head CT 12/28/17 1517 Signed Impressions: Service Date/Time: Thursday, December 28, 2017 16:24 - CONCLUSION: 1. Subcutaneous hematoma within the right side of the scalp. 2. The no acute intercranial abnormality. 3. Mild cortical atrophy with ventricular dilation in proportion to sulci atrophy. Antonio Ch MD Chest X-Ray 12/28/171 Signed Impressions: Service Date/Time: Thursday, December 28, 2017 16:16 - CONCLUSION: 1. No acute cardiopulmonary findings. Antonio Ch MD Cervical Spine CT 12/28/17 [id number] Signed Impressions: Service Date/Time: Thursday, December 28, 2017 16:24 - CONCLUSION: No acute findings in the cervical spine. No evidence of acute fracture. Degenerative disc disease, prior surgery, and subluxation is unchanged from prior CT in September 2016. Home Anders MD Lumbar Spine CT 12/28/17 0000 Signed Impressions: Service Date/Time: Thursday, December 28, 2017 16:34 - CONCLUSION: 1. No acute fracture of the lumbar spine identified. 2. Advanced degenerative changes as noted above. 3. Incidental stones evident within the left kidney. Antonio Ch MD Objective Remarks GENERAL: Thin, female sitting in the edge of the bed. SKIN: Forehead laceration status post repair, dressed. Dressing clean/dry/ intact. Right eye with surrounding ecchymoses and swelling. HEAD: No temporal or scalp tenderness. EYES: Pupils equal round and reactive. Extraocular motions intact. No scleral icterus. No injection or drainage. ENT: Nose without bleeding, purulent drainage or septal hematoma. Throat without erythema, tonsillar hypertrophy or exudate. Uvula midline. Airway patent. NECK: Trachea midline. No JVD or lymphadenopathy. Supple, nontender, no meningeal signs. CARDIOVASCULAR: Regular rate and rhythm without murmurs, gallops, or rubs. RESPIRATORY: Clear to auscultation. Breath sounds equal bilaterally. No wheezes , rales, or rhonchi. GASTROINTESTINAL: Abdomen soft, non-tender, nondistended. No hepato-splenomegaly , or palpable masses. No guarding. MUSCULOSKELETAL: Extremities without clubbing, cyanosis, or edema. No joint tenderness, effusion, or edema noted. No calf tenderness. NEUROLOGICAL: Awake and alert. Cranial nerves II through XII intact. Motor and sensory grossly within normal limits. Normal speech. 5/5 strength in all muscle groups. Medications and IVs Current Medications Medications (Trade) Dose Ordered Sig/Roni Route Start Time Stop Time Status Last Admin (Elavil) 25 mg HS PO 12/29/17 21:00 (Aspirin Chew) 81 mg DAILY CHEW 12/29/17 09:00 12/29/17 10:23 (Qvar 80 Mcg Inh) 1 puff BID INH 12/29/17 09:00 12/29/17 10:58 (Librax 5-2.5 Mg) 1 cap QID PO 12/29/17 09:00 (Hemocyte) 325 mg DAILY PO 12/29/17 09:00 12/29/17 10:59 (Synthroid) 100 mcg DAILY@0600 PO 12/29/17 06:00 12/29/17 06:40 (Remeron) 15 mg HS PO 12/29/17 21:00 (Zoloft) 50 mg DAILY PO 12/29/17 09:00 12/29/17 11:01 (Coreg) 6.25 mg BID PO 12/29/17 09:00 12/29/17 10:23 Patient Own Medication PT OWN MED: TROSP... DAILY PO 12/29/17 09:00 Future Hold Sodium Chloride 1,000 ml @ 60 mls/hr [id number] IV 12/28/17 23:49 12/29/17 00:16 (NS Flush) 2 ml UNSCH PRN IV FLUSH 12/29/17 00:00 (NS Flush) 2 ml BID IV FLUSH 12/29/17 09:00 (Tylenol) 650 mg Q4H PRN PO 12/29/17 00:00 12/29/17 03:43 (Zofran Inj) 4 mg Q6H PRN IVP 12/29/17 00:00 (Heparin Inj) 5,000 units Q12H SQ 12/29/17 00:00 12/29/17 00:21 (Narcan Inj) 0.4 mg UNSCH PRN IV PUSH 12/29/17 00:00 (Miguelina-Colace) 1 tab BID PO 12/29/17 09:00 12/29/17 11:00 (Milk Of Magnesia Liq) 30 ml Q12H PRN PO 12/29/17 00:00 (Senokot) 17.2 mg Q12H PRN PO 12/29/17 00:00 (Dulcolax Supp) 10 mg DAILY PRN RECTAL 12/29/17 00:00 (Lactulose Liq) 30 ml DAILY PRN PO 12/29/17 00:00 (Cortef) 10 mg DAILY PO 12/29/17 09:00 12/29/17 11:22 (Cortef) 5 mg DAILY@1200 PO 12/29/17 12:00 (Cortef) 5 mg DAILY@1700 PO 12/29/17 17:00 12/29/17 11:01 A/P Problem List: (1) Generalized weakness ICD Code: R53.1 - Weakness Status: Acute Plan: Unclear etiology of generalized weakness. Possibly secondary to pain and fall. Head CT negative for acute intracranial process. Ua negative. CXR reviewed by me negative. Patient given IV morphine for pain control. PT consulted, recommendations pending. (2) Scalp laceration ICD Code: S01.01XA - Laceration without foreign body of scalp, initial encounter Status: Acute Plan: After patient fell. The patient denies losing consciousness. Patient states that she has had this for some time. She states that she follow with a neurologist as an outpatient. She states she fell as if she could not stop running and then fell down. Suspect fall is likely secondary to generalized weakness. (3) Acute kidney injury ICD Code: N17.9 - Acute kidney failure, unspecified Status: Acute Plan: Much improved after IV fluid administration. (4) Frequent falls ICD Code: R29.6 - Repeated falls Status: Acute Plan: The patient states she has fell a couple times. She states that she following with neurology as an outpatient and has complained to him about this, however states that neurologist does not seem to be concerned. Frequent falls likely secondary to generalized weakness and possibly pain. PT consulted. Follow-up recommendations. Patient does not want to go to rehab. Patient also was complaining of some back pain however CT of the lumbar spine shows no acute fracture of the lumbar spine. There are however advanced degenerative changes and incidental stones evident within the left kidney. Maxillofacial CT showed a large right supraorbital scalp hematoma, no fracture seen. Head CT showed subcutaneous hematoma to the right side of the scalp. No acute intracranial abnormality. Mild cortical atrophy with periventricular dilation in proportion to sulci atrophy. ? Normal pressure hydrocephalus. Consult neurology given the sensation of not been able to stop. Order EKG Order carotid Dopplers. Monitor on telemetry. (5) Hyponatremia ICD Code: E87.1 - Hypo-osmolality and hyponatremia Status: Resolved Plan: Much improved after IVF,likely due to hypovolemic hyponatremia. Sodium 138 and hyponatremia resolved. (6) Hypothyroidism ICD Code: E03.9 - Hypothyroidism Status: Chronic Plan: On levothyroxine and liothyronine. Check TSH and free t4. (7) Adrenal insufficiency ICD Code: E27.40 - Chronic adrenal insufficiency Status: Chronic Plan: Continue home hydrocortisone. Blood pressure within normal range. (8) Depression ICD Code: F32.9 - Major depressive disorder, single episode, unspecified Plan: Seems to be stable. Continue mirtazapine, amitriptyline and Zoloft. (9) HTN (hypertension) ICD Code: I10 - Essential (primary) hypertension Plan: Blood pressure seems to be stable. Continue home antihypertensive medications. The patient is currently on carvedilol 6.25 mg p.o. twice daily, (10) Anemia ICD Code: D64.9 - Anemia, unspecified Plan: Patient's hemoglobin dropped from 12.3-9.7. Patient denies any melena or hematochezia. Check stool guaiac and repeat CBC now. Possibly drop in hemoglobin could be dilutional after IV fluid administration. (11) IBS (irritable bowel syndrome) ICD Code: K58.9 - Irritable bowel syndrome without diarrhea Plan: The patient states has history of irritable bowel syndrome, states he is having diarrhea "as usual" for irritable bowel syndrome. The patient however elicits some flulike symptoms in the previous days for which she got antibiotics. I will check C. difficile stool PCR for C. difficile diarrhea. Assessment and Plan DVT prophylaxis: SCDs. Discharge Planning Possible discharge in a.m. Pending physical therapy recommendations, stabilization of hemoglobin, carotid Dopplers and neurology consultation. Problem Qualifiers (1) Scalp laceration: Qualified Codes: S01.01XD - Laceration without foreign body of scalp, subsequent encounter (2) Hypothyroidism: Qualified Codes: E03.9 - Hypothyroidism, unspecified (3) Depression: Qualified Codes: F32.9 - Major depressive disorder, single episode, unspecified (4) HTN (hypertension): Qualified Codes: I10 - Essential (primary) hypertension (5) Anemia: Qualified Codes: D64.9 - Anemia, unspecified (6) IBS (irritable bowel syndrome): Qualified Codes: K58.0 - Irritable bowel syndrome with diarrhea Harshad Chowdhury MD Dec 29, 2017 13:46
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
[2017-12-29 17:19] VITALS: BP 140/65; PULSE 84; RESP 18; TEMP 98.1; O2SAT 99
[2017-12-29 17:26] LABS: FREE T4 1.41 NG/DL (0.76-1.46)
[2017-12-29] MEDS ORDERED: AMITRIPTYLINE HCL 25 MG TAB PO SCH (21:00)
[2017-12-29] MEDS ORDERED: MIRTAZAPINE 15 MG TAB PO SCH (21:00)
[2017-12-29 22:03] LABS: HEMATOCRIT 26.3 % (35.0-46.0); HEMOGLOBIN 9.4 GM/DL (11.6-15.3); MEAN CELL VOLUME 86.4 FL (80.0-100.0); MEAN CORPUSCULAR HEMOGLOBIN 30.7 PG (27.0-34.0); MEAN CORPUSCULAR HGB CONC 35.5 % (32.0-36.0); MEAN PLATELET VOLUME 8.1 FL (7.0-11.0); PLATELET COUNT 227 TH/MM3 (150-450); RED BLOOD COUNT 3.05 MIL/MM3 (4.00-5.30); RED CELL DISTRIBUTION WIDTH 13.3 % (11.6-17.2); WHITE BLOOD COUNT 6.6 TH/MM3 (4.0-11.0)
[2017-12-29 22:26] VITALS: BP 150/76; PULSE 72; RESP 18; TEMP 97.8; O2SAT 98
[2017-12-30] MEDS: ACETAMINOPHEN/HYDROcodone 325 MG/5 MG TAB PO PRN ×2 (00:05→13:50)
[2017-12-30 05:17] VITALS: BP 153/70; PULSE 66; RESP 18; TEMP 97.9; O2SAT 99
[2017-12-30] MEDS: LEVOTHYROXINE SODIUM 100 MCG TAB PO SCH (05:55)
[2017-12-30 08:18] VITALS: BP 162/72; PULSE 73; RESP 16; TEMP 97.5; O2SAT 98
--- NOTE | 2017-12-30 08:58 | HHI.PR ---
Review/Management Diagnosis/Plan: (1) Back pain, chronic ICD Codes: M54.9 - Dorsalgia, unspecified; G89.29 - Other chronic pain Status: Chronic Plan: acute on chronic back pain. takes opiods at home and see's pain md for kaylyn shots probable spasm at present ct brain reviewed- don't think she has nph. moderate white matter dz which could be causing ventriculomegaly and imbalance recs ok to d/c from neuro today p.t. balance therapy pain control should hold off driving until seen outpatient f/u in our office in 2 weeks (2) Migraine ICD Codes: G43.909 - Migraine, unspecified, not intractable, without status migrainosus Status: Chronic (3) HTN (hypertension) ICD Codes: I10 - Essential (primary) hypertension (4) Depression ICD Codes: F32.9 - Major depressive disorder, single episode, unspecified Status: Chronic Plan: stable Subjective Subjective Comments No acute events reported; pain improved." can I go home?" No headache No chest pain No dyspnea Active Medications Current Medications Medications (Trade) Dose Ordered Sig/Roni Route Start Time Stop Time Status Last Admin (Elavil) 25 mg HS PO 12/29/17 21:00 12/29/17 22:54 (Aspirin Chew) 81 mg DAILY CHEW 12/29/17 09:00 12/29/17 10:23 (Qvar 80 Mcg Inh) 1 puff BID INH 12/29/17 09:00 12/29/17 21:00 (Hemocyte) 325 mg DAILY PO 12/29/17 09:00 12/29/17 10:59 (Synthroid) 100 mcg DAILY@0600 PO 12/29/17 06:00 12/30/17 05:55 (Remeron) 15 mg HS PO 12/29/17 21:00 12/29/17 21:00 (Zoloft) 50 mg DAILY PO 12/29/17 09:00 12/29/17 11:01 (Coreg) 6.25 mg BID PO 12/29/17 09:00 12/29/17 21:00 Patient Own Medication PT OWN MED: TROSP... DAILY PO 12/29/17 09:00 Future Hold Sodium Chloride 1,000 ml @ 60 mls/hr [id number] IV 12/28/17 23:49 12/29/17 15:26 (NS Flush) 2 ml UNSCH PRN IV FLUSH 12/29/17 00:00 (NS Flush) 2 ml BID IV FLUSH 12/29/17 09:00 12/29/17 21:00 (Tylenol) 650 mg Q4H PRN PO 12/29/17 00:00 12/29/17 03:43 (Zofran Inj) 4 mg Q6H PRN IVP 12/29/17 00:00 (Heparin Inj) 5,000 units Q12H SQ 12/29/17 00:00 12/29/17 22:54 (Narcan Inj) 0.4 mg UNSCH PRN IV PUSH 12/29/17 00:00 (Miguelina-Colace) 1 tab BID PO 12/29/17 09:00 12/29/17 11:00 (Milk Of Magnesia Liq) 30 ml Q12H PRN PO 12/29/17 00:00 (Senokot) 17.2 mg Q12H PRN PO 12/29/17 00:00 (Dulcolax Supp) 10 mg DAILY PRN RECTAL 12/29/17 00:00 (Lactulose Liq) 30 ml DAILY PRN PO 12/29/17 00:00 (Cortef) 10 mg DAILY PO 12/29/17 09:00 12/29/17 11:22 (Cortef) 5 mg DAILY@1200 PO 12/29/17 12:00 12/29/17 15:25 (Cortef) 5 mg DAILY@1700 PO 12/29/17 17:00 12/29/17 11:01 ([place] 5-325 Mg) 1 tab Q8H PRN PO 12/30/17 00:00 12/30/17 00:05 Allergies Allergies Coded Allergies Sulfa (Sulfonamide Antibiotics) (Verified Allergy, Severe, HIVES, SWELLING, 12/29/17) gluten (Unverified Allergy, Severe, Cramping, 12/29/17) lactose (Unverified Allergy, Mild, Diarrhea, 12/29/17) meperidine (Unverified Adverse Reaction, Mild, nausea, 12/29/17) Review of Systems All other ROS: ROS reviewed as documented in chart Exam I&O / VS Vital Signs Date Time Temp Pulse Resp B/P (MAP) Pulse Ox O2 Delivery O2 Flow Rate FiO2 12/30/17 08:18 97.5 73 16 162/72 (102) 98 12/30/17 05:17 97.9 66 18 153/70 (97) 99 12/29/17 22:26 97.8 72 18 150/76 (100) 98 12/29/17 17:19 98.1 84 18 140/65 (90) 99 12/29/17 11:35 97.6 89 18 122/56 (78) 100 12/29/17 11:29 78 18 146/70 (95) 98 12/29/17 09:00 82 16 146/71 (96) 98 Room Air General: Alert and Oriented, No acute distress Eye: EOMI Musculoskeletal: ROM Neurologic: Alert, Oriented, Normal motor, Normal DTR's Psychiatric: Cooperative, Appropriate mood & affect Exam Comments alert, ox 3, pleasant, conversates well. on commode, eomi, wilson to gravity Objective Micro and Labs Laboratory Tests Test 12/29/17 20:33 12/29/17 20:53 White Blood Count 6.6 Red Blood Count 3.05 Hemoglobin 9.4 Hematocrit 26.3 Mean Corpuscular Volume 86.4 Mean Corpuscular Hemoglobin 30.7 Mean Corpuscular Hemoglobin Concent 35.5 Red Cell Distribution Width 13.3 Platelet Count 227 Mean Platelet Volume 8.1 Problem Qualifiers (1) Back pain, chronic: (2) Migraine: (3) HTN (hypertension): Qualified Codes: I10 - Essential (primary) hypertension (4) Depression: Qualified Codes: F32.9 - Major depressive disorder, single episode, unspecified Milo Arriaga MD Dec 30, 2017 08:58
[2017-12-30] MEDS: SERTRALINE HCL 50 MG TAB PO SCH (09:00)
[2017-12-30] MEDS: DOCUSATE SODIUM 50 MG/SENNA 8.6 MG TAB PO SCH (09:00)
[2017-12-30] MEDS: BECLOMETHASONE DIPROPIONATE 80 MCG/ACT 8.7 GM INHALER INH SCH (09:00)
[2017-12-30] MEDS: SODIUM CHLORIDE 0.9% FLUSH 10 ML FLUSH IV FLUSH SCH (09:00)
[2017-12-30] MEDS: FERROUS FUMARATE 325 MG TAB (106 MG ELEMENTAL IRON) PO SCH (09:00)
[2017-12-30] MEDS: CARVEDILOL 6.25 MG TAB PO SCH (09:00)
[2017-12-30] MEDS: ASPIRIN 81 MG CHEW TAB CHEW SCH (09:00)
[2017-12-30] MEDS: HYDROCORTISONE 10 MG TAB PO SCH ×3 (09:00→16:01)
[2017-12-30] MEDS: SODIUM CHLOR 0.9% 1000 ML INJ 1,000 ML IV SCH (09:09)
[2017-12-30] MEDS: HEPARIN SODIUM - SQ 10,000 UNITS/ML VIAL SQ SCH (12:00)
[2017-12-30 12:08] VITALS: BP 142/63; PULSE 73; RESP 16; TEMP 97.4; O2SAT 98
[2017-12-30 16:04] VITALS: BP 147/64; PULSE 62; RESP 18; TEMP 97.6; O2SAT 97
--- NOTE | 2017-12-30 19:45 | RADRPT ---
EXAM DATE/TIME: 12/30/2017 18:56 [facility] COMPARISON: No previous studies available for comparison. INDICATIONS : Syncope. MEDICAL HISTORY : Gastroesophageal reflux disease. Hypertension. Diverticulitis. Thyroid disease. Cataracts. Migraines. Anticoagulant therapy. Asthma. PTSD. Depression. Anxiety. Back pain. Measles. SURGICAL HISTORY : Hysterectomy. Appendectomy. Colon resection. Cervical fusion. Bladder sling. Left arm surgery. ENCOUNTER: Initial ACUITY: 1 day PAIN SCORE: 2/10 LOCATION: Bilateral neck PEAK SYSTOLIC VELOCITIES (cm/sec): ICA/CCA RATIO: Right: 0.8 Left: 1.6 ICA: Right: 65 Left: 91 CCA: Right: 80 Left: 59 ECA: Right: 110 Left: 64 VERTEBRAL: Right: 50 antegrade Left: 62 antegrade Elevated flow velocities and ICA/CCA ratios have been found to correlate with increased degrees of vessel stenosis, calculated as percentage of diameter relative to a normal segment of distal ICA/CCA FINDINGS: RIGHT CAROTID: There is no evidence for a hemodynamically significant carotid stenosis. Minimal int imal hyperplasia is present with scattered calcific plaque. LEFT CAROTID: There is no evidence for a hemodynamically significant carotid stenosis. Minimal inti mal hyperplasia is present with scattered calcific plaque. VERTEBRAL ARTERIES: Flow is antegrade in both vertebral arteries. MISCELLANEOUS: There are no ancillary masses or adenopathy. CONCLUSION: Negative examination for a hemodynamically significant carotid stenosis. Gaudencio Ch MD FACR on December 30, 2017 at 19:43 Board Certified Radiologist. This report was verified electronically.
--- NOTE | 2017-12-30 20:07 | HHI.DCPOC ---
Discharge Care Plan Diagnosis: (1) Acute kidney injury (2) Laceration of head (3) IBS (irritable bowel syndrome) (4) HTN (hypertension) (5) Hyponatremia (6) Generalized weakness (7) Frequent falls (8) Hypothyroidism (9) Adrenal insufficiency Goals to Promote Your Health * To prevent worsening of your condition and complications * To maintain your health at the optimal level Directions to Meet Your Goals Take your medications as prescribed Follow your dietary instruction Follow activity as directed Keep your appointments as scheduled Take your immunizations and boosters as scheduled If your symptoms worsen call your PCP, if no PCP go to Urgent Care Center or Emergency Room Smoking is Dangerous to Your Health. Avoid second hand smoke Call the 24-hour hour crisis hotline for domestic abuse at Harshad Chowdhury MD Dec 30, 2017 20:07
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
== END 2017-12-30 21:22 | disposition home or self-care (01) ==
LOC: NEPC 15:48 → NEDA 21:51 → NEDH 12-29 02:05 → NEPHCDU 12-29 14:54
PROVIDERS: ADMIT Hospitalist; ATTEND Hospitalist
DX: N17.9 Acute kidney failure, unspecified (principal); R53.1 Weakness; E27.40 Unspecified adrenocortical insufficiency; S01.01XA Laceration without foreign body of scalp, initial encounter; I10 Essential (primary) hypertension; E03.9 Hypothyroidism, unspecified; M54.5 Low back pain; G31.9 Degenerative disease of nervous system, unspecified; R29.6 Repeated falls; E87.1 Hypo-osmolality and hyponatremia; D64.9 Anemia, unspecified; J45.909 Unspecified asthma, uncomplicated; K21.9 Gastro-esophageal reflux disease without esophagitis; G89.29 Other chronic pain; G93.89 Other specified disorders of brain; G43.909 Migraine, unspecified, not intractable, without status migrainosus; K58.0 Irritable bowel syndrome with diarrhea; G91.2 (Idiopathic) normal pressure hydrocephalus; M48.00 Spinal stenosis, site unspecified; F41.9 Anxiety disorder, unspecified; F32.9 Major depressive disorder, single episode, unspecified; F43.10 Post-traumatic stress disorder, unspecified; Z79.899 Other long term (current) drug therapy; Z79.82 Long term (current) use of aspirin; V43.52XA Car driver injured in collision with other type car in traffic accident, initial encounter
CPT/HCPCS: 12002; 70450; 70486; 71045; 72125; 72131; 80048; 80053; 81001; 82550; 82607; 83735; 84439; 84443; 84484; 85025; 85027; 85610; 85730; 86592; 93880; 96361; 96372; 96374; 96376; 97162; 99285; G0378; G8987; G8988; J1644; J2270; J7030

== ENCOUNTER 2018-01-14 14:50 | Emergency (ER) | payer MEDICARE, BC ==
[~2018-01-14 14:50] MED LIST changes: -BUPR150CR PO; -DIAZ5 PO; -LIOT5TAB3 PO
[2018-01-14 14:53] VITALS: BP 157/70; PULSE 97; RESP 16; TEMP 97.6; O2SAT 99
[2018-01-14] MEDS ORDERED: CEPH-460 PO (15:52)
--- NOTE | 2018-01-14 15:55 | PD ---
HPI Chief Complaint: Wound/Suture/Staple Re-Check Time Seen by Provider: 15:01 Travel History International Travel<30 days: No Contact w/Intl Traveler<30days: No Traveled to known affect area: No History of Present Illness HPI This is an 82-year-old female here for suture removal. She sustained a laceration to her forehead on 12/30/17 after she fell from a standing position. According to the note wound was closed with sutures, Steri-Strips, Dermabond. Patient denies any medical complaints at today's visit. PFSH Past Medical History Hx Anticoagulant Therapy: Yes (ASA) Asthma: Yes Autoimmune Disease: No Blood Disorders: No Anxiety: Yes Depression: Yes Heart Rhythm Problems: No Cancer: No Cardiac Catheterization: Yes Cardiovascular Problems: Yes High Cholesterol: No Chemotherapy: No Chest Pain: No Congestive Heart Failure: No COPD: No Diabetes: No Diminished Hearing: No Diverticulitis: Yes Endocrine: No Gastrointestinal Disorders: Yes (Gas, IBS) GERD: Yes Genitourinary: Yes (Overactive bladder) Headaches: Yes Hypertension: Yes Immune Disorder: No Implanted Vascular Access Dvce: Yes Musculoskeletal: No Neurologic: Yes (Migraine Headaches, spinal pain) Psychiatric: No Reproductive: No Respiratory: Yes Immunizations Current: Yes Migraines: Yes Myocardial Infarction: No Radiation Therapy: No Sleep Apnea: No Thyroid Disease: Yes Tetanus Vaccination: < 5 Years Influenza Vaccination: Yes ?: Not Menopausal: Yes Past Surgical History Abdominal Surgery: Yes (COLON RESECTION) Appendectomy: Yes Body Medical Devices: Plate in the left wrist Cholecystectomy: No Genitourinary Surgery: Yes (BLADDER SLING) Gynecologic Surgery: Yes (HYSTERECTEMY) Hysterectomy: Yes Neurologic Surgery: Yes (FUSION C5-C6) Other Surgery: Yes (appendectomy, partial colon removed, left arm ) Social History Alcohol Use: No Tobacco Use: No Substance Use: No Allergies-Medications (Allergen,Severity, Reaction): Coded Allergies: Sulfa (Sulfonamide Antibiotics) (Verified Allergy, Severe, HIVES, SWELLING , 01/14/18) gluten (Unverified Allergy, Severe, Cramping, 01/14/18) PT DESCRIBES SEVERE STOMACH CRAMPS AFTER EATING GLUTEN lactose (Unverified Allergy, Mild, Diarrhea, 01/14/18) meperidine (Unverified Adverse Reaction, Mild, nausea, 4/19/18) Reported Meds & Prescriptions Reported Meds & Active Scripts Active Keflex (Cephalexin) 500 Mg Cap 500 Mg PO Q6H 10 Days Reported Aspirin 81 Mg Chew 81 Mg CHEW DAILY Amitriptyline (Amitriptyline HCl) 25 Mg Tab 25 Mg PO HS Zolpidem (Zolpidem Tartrate) 5 Mg Tab 5 Mg PO HS PRN Synthroid (Levothyroxine Sodium) 100 Mcg Tab 100 Mcg PO DAILY Coreg Cr 24 HR (Carvedilol) 20 Mg Cap 20 Mg PO DAILY Cortef (Hydrocortisone) 5 Mg Tab 10 Mg PO DAILY Take with food to decrease GI upset Mirtazapine 15 Mg Tab 15 Mg PO HS Zoloft (Sertraline HCl) 50 Mg Tab 50 Mg PO DAILY Imitrex (Sumatriptan Succinate) 100 Mg Tab 100 Mg PO DIRECTED PRN If a satisfactory response has not been obtained at 2 hours, a second dose may be administered Trospium ER 60 Mg Cap 60 Mg PO DAILY Qvar Inh (Beclomethasone Dipropionate) 80 Mcg/Act Aero 1 Puff INH BID Review of Systems Except as stated in HPI: all other systems reviewed are Neg General / Constitutional: No: Fever Physical Exam Narrative GENERAL: Alert and well-appearing 82-year-old female SKIN: Warm and dry. Soiled Steri-Strips to the right forehead with notable purulent drainage HEAD: Normocephalic. Moderate size hematoma to the right forehead EYES: No scleral icterus. No injection or drainage. Pupils equal, round, reactive to light. EOMs intact. NECK: Supple, trachea midline. CARDIOVASCULAR: Regular rate and rhythm without murmurs, gallops, or rubs. RESPIRATORY: Breath sounds equal bilaterally. No accessory muscle use. GASTROINTESTINAL: Abdomen soft, non-tender, nondistended. MUSCULOSKELETAL: No cyanosis, or edema. BACK: No CVA tenderness. Data Data Last Documented VS Vital Signs Date Time Temp Pulse Resp B/P (MAP) Pulse Ox O2 Delivery O2 Flow Rate FiO2 01/14/18 14:53 97.6 97 16 157/70 (99) 99 MDM Medical Decision Making Medical Screen Exam Complete: Yes Emergency Medical Condition: Yes Differential Diagnosis Wound infection, abscess, suture removal Narrative Course 82-year-old female here with sutures to right forehead requesting suture removal. On exam patient has notable purulent drainage from the wound. Original laceration repair was performed using sutures, Steri-Strips, Dermabond which made removal today quite difficult. The wound appears mildly infected and has healed poorly. The area was cleansed thoroughly. Steri-Strips were used to loosely approximate wound edges. Patient will be put on antibiotics. She was instructed to follow-up with her primary Procedures Procedure Narrative LACERATION LOCATION: Right forehead LENGTH: 3 cm NUMBER OF STITCHES/BROCK: Steri-Strips used to loosely approximate wound edges REPAIR: The area was extensively cleansed and irrigated. Steri-Strips were used to loosely approximate dehisced wound edges Diagnosis Primary Impression: Wound infection Referrals: Primary Care Physician Additional Instructions: Antibiotics as directed. Follow-up with your doctor for recheck on Thursday. Return to emergency department if you develop new or worsening symptoms Scripts Cephalexin (Keflex) 500 Mg Cap 500 MG PO Q6H for Infection for 10 Days, #40 CAP 0 Refills Prov: Mindy Moses 01/14/18 Disposition: DISCHARGE HOME Condition: Stable Mindy Moses Jan 14, 2018 15:55
== END 2018-01-14 16:25 | disposition home or self-care (01) ==
LOC: PHEFT 14:50
DX: S01.81XA Laceration without foreign body of other part of head, initial encounter (principal); L08.9 Local infection of the skin and subcutaneous tissue, unspecified; W18.30XA Fall on same level, unspecified, initial encounter; F32.9 Major depressive disorder, single episode, unspecified; F41.9 Anxiety disorder, unspecified; I10 Essential (primary) hypertension; J45.909 Unspecified asthma, uncomplicated; K21.9 Gastro-esophageal reflux disease without esophagitis; E07.9 Disorder of thyroid, unspecified
CPT/HCPCS: 99281

== ENCOUNTER 2018-01-23 15:51 | Emergency (ER) | payer MEDICARE, BC ==
[~2018-01-23 15:51] MED LIST changes: +CEPH-460 PO; -DOCU100C15 PO; -FERR324T8 PO; -HYDR-3580 PO; -HYDR5TAB64 PO; -LIBRAX PO; -MECL1TAB42 PO
[2018-01-23 15:58] VITALS: BP 176/80; PULSE 97; RESP 16; TEMP 98.7; O2SAT 97
[2018-01-23] MEDS ORDERED: LIDOCAINE 1%/EPINEPHrine 1:100,000 SOLN 30 ML VIAL ONE (16:20)
[2018-01-23] MEDS ORDERED: LIDOCAINE 1%/EPINEPHrine 1:100,000 SOLN 20 ML VIAL INFIL ONE (16:30)
[2018-01-23] MEDS ORDERED: CEPH-460 PO (17:01)
--- NOTE | 2018-01-23 17:02 | PD ---
HPI Chief Complaint: Laceration/Skin Injury Time Seen by Provider: 16:14 Travel History International Travel<30 days: No Contact w/Intl Traveler<30days: No Traveled to known affect area: No History of Present Illness HPI 82-year-old female presents to the emergency department for evaluation of laceration to the right lower leg that occurred just prior to arrival. Patient states she walked with a cardboard box was cut her right lower leg. She states her tetanus immunization is up-to-date. Current pain is 3/10, aching, without radiation. No exacerbating or alleviating factors. Patient is not on anticoagulants. Moderate severity. Patient states she is currently on Keflex, but is almost through with it for infection to a previous laceration to her forehead. PFSH Past Medical History Hx Anticoagulant Therapy: Yes (ASA) Asthma: Yes Autoimmune Disease: No Blood Disorders: No Anxiety: Yes Depression: Yes Heart Rhythm Problems: No Cancer: No Cardiac Catheterization: Yes Cardiovascular Problems: Yes High Cholesterol: No Chemotherapy: No Chest Pain: No Congestive Heart Failure: No COPD: No Diabetes: No Diminished Hearing: No Diverticulitis: Yes Endocrine: No Gastrointestinal Disorders: Yes (Gas, IBS) GERD: Yes Genitourinary: Yes (Overactive bladder) Headaches: Yes Hypertension: Yes Immune Disorder: No Implanted Vascular Access Dvce: Yes Musculoskeletal: No Neurologic: Yes (Migraine Headaches, spinal pain) Psychiatric: No Reproductive: No Respiratory: Yes Immunizations Current: Yes Migraines: Yes Myocardial Infarction: No Radiation Therapy: No Sleep Apnea: No Thyroid Disease: Yes Tetanus Vaccination: < 5 Years ?: Not Menopausal: Yes Past Surgical History Abdominal Surgery: Yes (COLON RESECTION) Appendectomy: Yes Body Medical Devices: Plate in the left wrist Cholecystectomy: No Genitourinary Surgery: Yes (BLADDER SLING) Gynecologic Surgery: Yes (HYSTERECTEMY) Hysterectomy: Yes Neurologic Surgery: Yes (FUSION C5-C6) Other Surgery: Yes (appendectomy, partial colon removed, left arm ) Social History Alcohol Use: No Tobacco Use: No Substance Use: No Allergies-Medications (Allergen,Severity, Reaction): Coded Allergies: Sulfa (Sulfonamide Antibiotics) (Verified Allergy, Severe, HIVES, SWELLING , 01/23/18) gluten (Unverified Allergy, Severe, Cramping, 01/23/18) PT DESCRIBES SEVERE STOMACH CRAMPS AFTER EATING GLUTEN lactose (Unverified Allergy, Mild, Diarrhea, 01/23/18) meperidine (Unverified Adverse Reaction, Mild, nausea, 01/23/18) Reported Meds & Prescriptions Reported Meds & Active Scripts Active Keflex (Cephalexin) 500 Mg Cap 500 Mg PO Q6H 10 Days Reported Aspirin 81 Mg Chew 81 Mg CHEW DAILY Amitriptyline (Amitriptyline HCl) 25 Mg Tab 25 Mg PO HS Zolpidem (Zolpidem Tartrate) 5 Mg Tab 5 Mg PO HS PRN Synthroid (Levothyroxine Sodium) 100 Mcg Tab 100 Mcg PO DAILY Coreg Cr 24 HR (Carvedilol) 20 Mg Cap 20 Mg PO DAILY Cortef (Hydrocortisone) 5 Mg Tab 10 Mg PO DAILY Take with food to decrease GI upset Mirtazapine 15 Mg Tab 15 Mg PO HS Zoloft (Sertraline HCl) 50 Mg Tab 50 Mg PO DAILY Imitrex (Sumatriptan Succinate) 100 Mg Tab 100 Mg PO DIRECTED PRN If a satisfactory response has not been obtained at 2 hours, a second dose may be administered Trospium ER 60 Mg Cap 60 Mg PO DAILY Qvar Inh (Beclomethasone Dipropionate) 80 Mcg/Act Aero 1 Puff INH BID Review of Systems Except as stated in HPI: all other systems reviewed are Neg Physical Exam Narrative GENERAL: Well-nourished, well-developed elderly female patient, afebrile. SKIN: Focused skin assessment warm/dry. Patient has 7 cm V-shaped laceration to the right lower leg. No active bleeding. HEAD: Normocephalic. Atraumatic. EYES: No scleral icterus. No injection or drainage. NECK: Supple, trachea midline. No JVD or lymphadenopathy. CARDIOVASCULAR: Regular rate and rhythm without murmurs, gallops, or rubs. RESPIRATORY: Breath sounds equal bilaterally. No accessory muscle use. The lung sounds are clear to auscultation. MUSCULOSKELETAL: No cyanosis, or edema. Data Data Last Documented VS Vital Signs Date Time Temp Pulse Resp B/P (MAP) Pulse Ox O2 Delivery O2 Flow Rate FiO2 01/23/18 15:58 98.7 97 16 176/80 (112) 97 Orders Orders Lidocai-Epi 1%-1:100,000 Inj (Xylocaine- (01/23/18 16:30) Lidocai-Epi 1%-1:100,000 Inj (Xylocaine- (01/23/18 16:20) MDM Medical Decision Making Medical Screen Exam Complete: Yes Emergency Medical Condition: Yes Medical Record Reviewed: Yes Differential Diagnosis Laceration versus skin tear versus abrasion Narrative Course 82-year-old female presents to the emergency department for evaluation of a laceration to her right lower leg. Patient gives verbal consent for laceration repair. She is instructed on proper wound care. She is currently on Keflex, but states she only has a More doses. She will get a prescription to start after she finishes the prescription she is on to prevent infection. She verbalizes agreement. The patient was discharged in stable condition with instructions, including return instructions and follow up instructions. Procedures Procedure Narrative LACERATION LOCATION: Right lower LENGTH: 7 cm NUMBER OF STITCHES/BROCK: 2 simple interrupted sutures, one horizontal mattress suture REPAIR: The area of the laceration was prepped with Betadine and sterilely draped. The laceration was infiltrated with 1% lidocaine with epinephrine. The wound was copiously irrigated and explored without evidence of foreign body, tendon injury or neurovascular injury. The wound was closed using 4-0 Prolene. This was a single layer repair. A sterile dressing was applied. The patient was advised to keep the dressing clean and dry. Patient tolerated the procedure well. Diagnosis Primary Impression: Leg laceration Qualified Codes: S81.811A - Laceration without foreign body, right lower leg, initial encounter Referrals: Primary Care Physician call for appointment Patient Instructions: Care For Your Stitches (ED), General Instructions, Laceration (ED) Additional Instructions: Finish your prescription of Keflex that you are currently taking. Then start the new prescription I have written for you. Clean twice daily with soap and water and apply [id number] antibiotic ointment. Keep laceration clean and dry. No swimming or hot tubs until healed. Suture removal in 14 days. You may follow-up with her primary care physician return to the emergency department. Return to the emergency department for any acute worsening of symptoms. Med/Other Pt SpecificInfo: Prescription(s) given Scripts Cephalexin (Keflex) 500 Mg Capsule 500 MG PO Q8H for Infection for 10 Days, #30 CAP 0 Refills Prov: Dary Conti 01/23/18 Disposition: 01 DISCHARGE HOME Condition: Stable GallitoDary GARCIA Jan 23, 2018 17:02
== END 2018-01-23 17:16 | disposition home or self-care (01) ==
LOC: PHEFT 15:51
DX: S81.811A Laceration without foreign body, right lower leg, initial encounter (principal); W26.2XXA Contact with edge of stiff paper, initial encounter; J45.909 Unspecified asthma, uncomplicated; F41.9 Anxiety disorder, unspecified; F32.9 Major depressive disorder, single episode, unspecified; K21.9 Gastro-esophageal reflux disease without esophagitis; I10 Essential (primary) hypertension; K58.9 Irritable bowel syndrome, unspecified; E07.9 Disorder of thyroid, unspecified
CPT/HCPCS: 12002

== ENCOUNTER 2018-02-06 14:21 | Emergency (ER) | payer MEDICARE, BC ==
[~2018-02-06] VITALS: Ht 158.8 cm; Wt 50.2 kg
[2018-02-06 14:28] VITALS: BP 136/63; PULSE 82; RESP 16; TEMP 98.5; O2SAT 100
--- NOTE | 2018-02-06 15:20 | PD ---
HPI Chief Complaint: Wound/Suture/Staple Re-Check Time Seen by Provider: 15:04 Travel History International Travel<30 days: No Contact w/Intl Traveler<30days: No Traveled to known affect area: No History of Present Illness HPI 82-year-old female here for suture removal to the right lower extremity. She had sutures placed 01/23/18. She denies any medical complaint today. There has been no drainage, no fever, no pain or redness to the wound. PFSH Past Medical History Hx Anticoagulant Therapy: Yes (ASA) Asthma: Yes Autoimmune Disease: No Blood Disorders: No Anxiety: Yes Depression: Yes Heart Rhythm Problems: No Cancer: No Cardiac Catheterization: Yes Cardiovascular Problems: Yes (HTN) High Cholesterol: No Chemotherapy: No Chest Pain: No Congestive Heart Failure: No COPD: No Diabetes: No Diminished Hearing: No Diverticulitis: Yes Endocrine: No Gastrointestinal Disorders: Yes (Gas, IBS) GERD: Yes Genitourinary: Yes (Overactive bladder) Headaches: Yes Hypertension: Yes Immune Disorder: No Implanted Vascular Access Dvce: Yes Medical other: Yes (pt hx recalled ) Musculoskeletal: No Neurologic: Yes (Migraine Headaches, spinal pain) Psychiatric: No Reproductive: No Respiratory: Yes (asthma) Immunizations Current: Yes Migraines: Yes Myocardial Infarction: No Radiation Therapy: No Sleep Apnea: No Thyroid Disease: Yes ?: Not Menopausal: Yes Past Surgical History Abdominal Surgery: Yes (COLON RESECTION) Appendectomy: Yes Body Medical Devices: Plate in the left wrist Cholecystectomy: No Genitourinary Surgery: Yes (BLADDER SLING) Gynecologic Surgery: Yes (HYSTERECTEMY) Hysterectomy: Yes Neurologic Surgery: Yes (FUSION C5-C6) Other Surgery: Yes (appendectomy, partial colon removed, left arm ) Social History Alcohol Use: No Tobacco Use: No Substance Use: No Allergies-Medications (Allergen,Severity, Reaction): Coded Allergies: Sulfa (Sulfonamide Antibiotics) (Verified Allergy, Severe, HIVES, SWELLING , 02/06/18) gluten (Unverified Allergy, Severe, Cramping, 02/06/18) PT DESCRIBES SEVERE STOMACH CRAMPS AFTER EATING GLUTEN lactose (Unverified Allergy, Mild, Diarrhea, 02/06/18) meperidine (Unverified Adverse Reaction, Mild, nausea, 02/06/18) Reported Meds & Prescriptions Reported Meds & Active Scripts Active Keflex (Cephalexin) 500 Mg Capsule 500 Mg PO Q8H 10 Days Keflex (Cephalexin) 500 Mg Cap 500 Mg PO Q6H 10 Days Reported Aspirin 81 Mg Chew 81 Mg CHEW DAILY Amitriptyline (Amitriptyline HCl) 25 Mg Tab 25 Mg PO HS Zolpidem (Zolpidem Tartrate) 5 Mg Tab 5 Mg PO HS PRN Synthroid (Levothyroxine Sodium) 100 Mcg Tab 100 Mcg PO DAILY Coreg Cr 24 HR (Carvedilol) 20 Mg Cap 20 Mg PO DAILY Cortef (Hydrocortisone) 5 Mg Tab 10 Mg PO DAILY Take with food to decrease GI upset Mirtazapine 15 Mg Tab 15 Mg PO HS Zoloft (Sertraline HCl) 50 Mg Tab 50 Mg PO DAILY Imitrex (Sumatriptan Succinate) 100 Mg Tab 100 Mg PO DIRECTED PRN If a satisfactory response has not been obtained at 2 hours, a second dose may be administered Trospium ER 60 Mg Cap 60 Mg PO DAILY Qvar Inh (Beclomethasone Dipropionate) 80 Mcg/Act Aero 1 Puff INH BID Review of Systems Except as stated in HPI: all other systems reviewed are Neg General / Constitutional: No: Fever Physical Exam Narrative GENERAL: Alert and well-appearing 82-year-old female. SKIN: Warm and dry. Healing wound to the right lower extremity. Without evidence of infection. HEAD: Normocephalic. EYES: No injection or drainage. NECK: Supple CARDIOVASCULAR: Regular rate and rhythm without murmurs, gallops, or rubs. RESPIRATORY: Breath sounds equal bilaterally. No accessory muscle use. GASTROINTESTINAL: Abdomen soft, non-tender, nondistended. MUSCULOSKELETAL: No cyanosis, or edema. Healing wound to the right lower extremity. No evidence of infection. Data Data Last Documented VS Vital Signs Date Time Temp Pulse Resp B/P (MAP) Pulse Ox O2 Delivery O2 Flow Rate FiO2 02/06/18 14:28 98.5 82 16 136/63 (87) 100 MDM Medical Decision Making Medical Screen Exam Complete: Yes Emergency Medical Condition: Yes Differential Diagnosis Suture removal, wound infection, abscess Narrative Course 82-year-old female here with well-healed laceration to the right lower extremity. There is no evidence of infection. Sutures were removed. Wound edges remained well approximated. Procedures Procedure Narrative Sutures removal Diagnosis Primary Impression: Visit for suture removal Referrals: Primary Care Physician Additional Instructions: Follow-up with your primary doctor Disposition: 01 DISCHARGE HOME Condition: Mindy Zafar February 06, 2018 15:20
== END 2018-02-06 15:50 | disposition home or self-care (01) ==
LOC: PHED 14:21 → PHEFT 15:50
DX: Z48.02 Encounter for removal of sutures (principal); S81.811D Laceration without foreign body, right lower leg, subsequent encounter; X58.XXXD Exposure to other specified factors, subsequent encounter
CPT/HCPCS: 99281

== ENCOUNTER 2018-02-16 10:52 | Inpatient (IN) | payer MEDICARE, BC ==
[2018-02-16] VITALS (8 sets, daily range): BP systolic 130–187; BP diastolic 59–116; PULSE 70–101; RESP 14–20; TEMP 97.7–98.8; O2SAT 95–98
[2018-02-16] MEDS ORDERED: SODIUM CHLOR 0.9% 1000 ML INJ 1,000 ML IV ONE (11:10)
[2018-02-16] MEDS ORDERED: SODIUM CHLORIDE 0.9% FLUSH 10 ML FLUSH IVF PRN (11:15)
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
[2018-02-16 11:42] LABS: BASOPHIL # 0.1 TH/MM3 (0-0.2); BASOPHIL % 0.5 % (0.0-2.0); EOSINOPHIL % 0.1 % (0.0-4.0); HEMATOCRIT 39.5 % (35.0-46.0); HEMOGLOBIN 13.6 GM/DL (11.6-15.3); LYMPH % 3.8 % (9.0-44.0); LYMPHOCYTE # 0.7 TH/MM3 (1.0-4.8); MEAN CELL VOLUME 88.3 FL (80.0-100.0); MEAN CORPUSCULAR HEMOGLOBIN 30.3 PG (27.0-34.0); MEAN CORPUSCULAR HGB CONC 34.3 % (32.0-36.0); MEAN PLATELET VOLUME 8.6 FL (7.0-11.0); MONO % 6.4 % (0.0-8.0); MONOCYTE # 1.2 TH/MM3 (0-0.9); NEUT % 89.2 % (16.0-70.0); PLATELET COUNT 268 TH/MM3 (150-450); RED BLOOD COUNT 4.47 MIL/MM3 (4.00-5.30); RED CELL DISTRIBUTION WIDTH 14.1 % (11.6-17.2)
[2018-02-16 11:56] LABS: INTERNATIONAL NORMALIZED RATIO 1.1 RATIO; PROTHROMBIN TIME - PATIENT 11.1 SEC (9.8-11.6)
[2018-02-16 11:58] LABS: ALT (GPT) 18 U/L (10-53)
[2018-02-16 12:05] LABS: ALBUMIN 3.6 GM/DL (3.4-5.0); ALKALINE PHOSPHATASE 86 U/L (45-117); AST (GOT) 48 U/L (15-37); BICARBONATE 17.6 MEQ/L (21.0-32.0); BLOOD UREA NITROGEN 40 MG/DL (7-18); CALCIUM 10.1 MG/DL (8.5-10.1); CHLORIDE 110 MEQ/L (98-107); CREATININE 1.31 MG/DL (0.50-1.00); GLOMERULAR FILTRATION RATE 39 ML/MIN (>89); GLUCOSE,RANDOM 104 MG/DL (74-106); MAGNESIUM 2.6 MG/DL (1.5-2.5); SODIUM (NA) 141 MEQ/L (136-145); TOTAL BILIRUBIN ADULT 1.5 MG/DL (0.2-1.0); TROPONIN I LESS THAN 0.02 NG/ML (0.02-0.05)
--- NOTE | 2018-02-16 12:10 | PD ---
Physical Exam Date Seen by Provider: February 16, 2018 Data Data Last Documented VS Vital Signs Date Time Temp Pulse Resp B/P (MAP) Pulse Ox O2 Delivery O2 Flow Rate FiO2 02/16/18 13:00 70 14 187/87 (120) 97 Room Air 02/16/18 11:02 98.8 Orders Orders Electrocardiogram (02/16/18 11:10) Complete Blood Count With Diff (02/16/18 11:10) Comprehensive Metabolic Panel (02/16/18 11:10) Magnesium (Mg) (02/16/18 11:10) Ckmb (Isoenzyme) Profile (02/16/18 11:10) Troponin I (02/16/18 11:10) Act Partial Throm Time (Ptt) (02/16/18 11:10) Prothrombin Time / Inr (Pt) (02/16/18 11:10) Urinalysis - C+S If Indicated (02/16/18 11:10) Chest, Single Ap (02/16/18 11:10) Ct Brain W/O Iv Contrast(Rout) (02/16/18 11:10) Ct Cerv Spine W/O Contrast (02/16/18 11:10) Blood Glucose (02/16/18 11:10) Ecg Monitoring (02/16/18 11:10) Iv Access Insert/Monitor (02/16/18 11:10) Oximetry (02/16/18 11:10) Sodium Chloride 0.9% Flush (Ns Flush) (02/16/18 11:15) Sodium Chlor 0.9% 1000 Ml Inj (Ns 1000 M (02/16/18 11:10) Shoulder, Complete (>2vws) (02/16/18 ) Apply Cervical Collar (02/16/18 11:10) Cath For Specimen (02/16/18 11:10) Thyroid Stimulating Hormone (02/16/18 11:17) Lactic Acid Sepsis Protocol (02/16/18 11:47) Blood Culture (02/16/18 11:47) CKMB (02/16/18 11:30) CKMB% (02/16/18 11:30) Potassium, Serum (K) (02/16/18 12:26) Labs Laboratory Tests Test 02/16/18 11:30 02/16/18 12:18 02/16/18 12:52 White Blood Count 18.0 TH/MM3 Red Blood Count 4.47 MIL/MM3 Hemoglobin 13.6 GM/DL Hematocrit 39.5 % Mean Corpuscular Volume 88.3 FL Mean Corpuscular Hemoglobin 30.3 PG Mean Corpuscular Hemoglobin Concent 34.3 % Red Cell Distribution Width 14.1 % Platelet Count 268 TH/MM3 Mean Platelet Volume 8.6 FL Neutrophils (%) (Auto) 89.2 % Lymphocytes (%) (Auto) 3.8 % Monocytes (%) (Auto) 6.4 % Eosinophils (%) (Auto) 0.1 % Basophils (%) (Auto) 0.5 % Neutrophils # (Auto) 16.0 TH/MM3 Lymphocytes # (Auto) 0.7 TH/MM3 Monocytes # (Auto) 1.2 TH/MM3 Eosinophils # (Auto) 0.0 TH/MM3 Basophils # (Auto) 0.1 TH/MM3 CBC Comment DIFF FINAL Differential Comment Prothrombin Time 11.1 SEC Prothromb Time International Ratio 1.1 RATIO Activated Partial Thromboplast Time 24.0 SEC Blood Urea Nitrogen 40 MG/DL Creatinine 1.31 MG/DL Random Glucose 104 MG/DL Total Protein 8.0 GM/DL Albumin 3.6 GM/DL Calcium Level 10.1 MG/DL Magnesium Level 2.6 MG/DL Alkaline Phosphatase 86 U/L Aspartate Amino Transf (AST/SGOT) 48 U/L Alanine Aminotransferase (ALT/SGPT) 18 U/L Total Bilirubin 1.5 MG/DL Sodium Level 141 MEQ/L Potassium Level 5.7 MEQ/L 4.4 MEQ/L Chloride Level 110 MEQ/L Carbon Dioxide Level 17.6 MEQ/L Anion Gap 13 MEQ/L Estimat Glomerular Filtration Rate 39 ML/MIN Total Creatine Kinase 278 U/L Creatine Kinase MB 2.7 NG/ML Creatine Kinase MB % 1.0 % Troponin I LESS THAN 0.02 NG/ML Thyroid Stimulating Hormone 3rd Gen 23.600 uIU/ML Urine Color YELLOW Urine Turbidity CLEAR Urine pH 6.0 Urine Specific [place] 1.019 Urine Protein 100 mg/dL Urine Glucose (UA) NEG mg/dL Urine Ketones 40 mg/dL Urine Occult Blood NEG Urine Nitrite NEG Urine Bilirubin NEG Urine Urobilinogen 1.0 MG/DL Urine Leukocyte Esterase NEG Urine WBC 1 /hpf Urine Squamous Epithelial Cells <1 /hpf Urine Mucus FEW /lpf Microscopic Urinalysis Comment CULT NOT INDICATED Lactic Acid Level 1.8 mmol/L MDM Medical Record Reviewed: Yes Supervised Visit with EMERALD: Yes Narrative Course I, Dr. Flaherty, have reviewed the advance practice practitioner's documentation and am in agreement, met with the patient face to face, made the diagnosis, and the medical decision making was done by me. *My assessment and Findings: 82 year old female who presents to the ER after she was found on the ground for 4 days after a wellness check. patient reports that she fell 4 days ago and was unable to get up after her fall. She was unable to ask the phone, clergy reports that he tried calling patient but her phone wasn't working. Patient at this time complains of generalized weakness. Patient presents to the ER disheveled as she had been lying on the floor for the past 4 days. Reports mild headache as well as right shoulder pain. Patient with no other complaints at this time. CBC & BMP Diagram 02/16/18 11:30 Total Protein 8.0, Albumin 3.6, Calcium Level 10.1, Magnesium Level 2.6 H, Alkaline Phosphatase 86, Aspartate Amino Transf (AST/SGOT) 48 H, Alanine Aminotransferase (ALT/SGPT) 18, Total Bilirubin 1.5 H 02/16/18 12:52 Kristina Flaherty DO February 16, 2018 12:10
--- NOTE | 2018-02-16 12:18 | RADRPT ---
EXAM DATE: 02/16/2018 12:05 PM EDT AGE/SEX: 82 years / Female INDICATIONS: Right Shoulder pain post fall. CLINICAL DATA: This is the patient's initial encounter. Patient reports that signs and symptoms have been present for 1 day and indicates a pain score of 7/10. MEDICAL/SURGICAL HISTORY: None. None. COMPARISON: No prior exams available for comparison. FINDINGS: Bony structures are intact and in normal alignment. Joints are intact without dislocation or significant arthropathy. Osseous density is normal. Soft tissues are unremarkable. No radiopaq ue foreign bodies seen. CONCLUSION: No acute findings. Mild degenerative change. Electronically signed by: Abdiel Mae MD 02/16/2018 12:17 PM EDT
--- NOTE | 2018-02-16 12:19 | RADRPT ---
EXAM DATE: 02/16/2018 12:07 PM EDT AGE/SEX: 82 years / Female INDICATIONS: Short of breath post fall. CLINICAL DATA: This is the patient's initial encounter. Patient reports that signs and symptoms have been present for 1 day and indicates a pain score of 7/10. MEDICAL/SURGICAL HISTORY: None. None. COMPARISON: No prior exams available for comparison. FINDINGS: A single AP view of the chest demonstrates the lungs to be symmetrically aerated without e vidence of mass, infiltrate or effusion. The cardiomediastinal contours are unremarkable. Osseous s tructures are intact. CONCLUSION: No acute findings. Electronically signed by: Abdiel Mae MD 02/16/2018 12:18 PM EDT
[2018-02-16 12:57] LABS: BLOOD, URINE NEG (NEG); GLUCOSE,URINE NEG (NEG); KETONE, URINE 40 mg/dL (NEG); NITRITE,URINE NEG (NEG); URINE COLOR YELLOW (YELLW/STRAW); URINE LEUKOCYTE ESTERASE NEG (NEG)
[2018-02-16 12:58] LABS: BILIRUBIN, URINE NEG (NEG); MUCUS URINE FEW /lpf (OCC); SQUAMOUS EPITHELIAL CELL URINE <1 /hpf (0-5)
--- NOTE | 2018-02-16 13:33 | RADRPT ---
EXAM DATE: 02/16/2018 12:58 PM EDT AGE/SEX: 82 years / Female INDICATIONS: Found on the ground, possible fall. CLINICAL DATA: This is the patient's initial encounter. Patient reports that signs and symptoms have been present for 1 day and indicates a pain score of 0/10. MEDICAL/SURGICAL HISTORY: Hypertension. Cardiovascular disease. Hysterectomy. RADIATION DOSE: 12.61 CTDI (mGy) COMPARISON: [facility] [place], CT CERVICAL SPINE W/O CONTRAST, 12/28/2017. . TECHNIQUE: Contiguous axial images were obtained using helical multirow detector technique. The vol umetric data was post-processed with multiplanar reconstruction in oblique axial, sagittal, and coron al planes. Using automated exposure control and adjustment of the mA and/or kV according to patient s ize, radiation dose was kept as low as reasonably achievable to obtain optimal diagnostic quality rosa ges. Today's exam is compared to the recent study of 12/28/2017. There is been no new or significant changes with the appearance of the cervical spine compared to the prior study. There continues to be some an terior spondylolisthesis of C3 over C4 which is stable. Patient is status post anterior cervical fusi on at C5-C6. The hardware is grossly intact. No acute bony fractures are demonstrated. There continue s to be bony degenerative changes throughout the cervical spine with disc space narrowing at C6-7. Co mpared to the recent prior study no new or significant changes are demonstrated. CONCLUSION: 1. Stable CT scan of the cervical spine compared to the prior study of 12/28/2017. 2. No acute bony fracture. 3. No change in the anterior subluxation of C3 over C4. Electronically signed by: Ismael Lynch MD 02/16/2018 1:31 PM EDT
--- NOTE | 2018-02-16 13:37 | RADRPT ---
EXAM DATE: 02/16/2018 12:55 PM EDT AGE/SEX: 82 years / Female INDICATIONS: Found on the ground, possible fall. CLINICAL DATA: This is the patient's initial encounter. Patient reports that signs and symptoms have been present for 1 day and indicates a pain score of 0/10. MEDICAL/SURGICAL HISTORY: Hypertension. Cardiovascular disease. Hysterectomy. RADIATION DOSE: 56.35 CTDI (mGy) COMPARISON: [facility] [place], CT BRAIN W/O CONTRAST, 12/28/2017. . TECHNIQUE: CT of the head without contrast. Using automated exposure control and adjustment of the mA and/or kV according to patient size, radiation dose was kept as low as reasonably achievable to ob tain optimal diagnostic quality images. FINDINGS: Generalized volume loss with enlargement of the CSF spaces especially in the lateral ventr icles is again noted. Moderate diffuse hypodensity with loss of volume is identified throughout the c erebral white matter. There are no characteristic findings of acute infarct, hemorrhage, mass or edema. There are no extra-axial fluid collections Calvarium appears intact. CONCLUSION: 1. Generalized atrophy 2. Moderate to severe chronic white matter disease characteristic of small vessel ischemic changes. 3. No evidence of acute infarct, hemorrhage, mass or edema. Electronically signed by: Colby Jimenez MD 02/16/2018 1:35 PM EDT
[2018-02-16] MEDS ORDERED: LEVO.1 PO (15:13)
[2018-02-16] MEDS ORDERED: CARV20 PO (15:13)
[2018-02-16] MEDS ORDERED: BECL80AE3 INH (15:13)
[2018-02-16] MEDS ORDERED: NITROGLYCERIN 0.4 MG SL 25 TABS/BTL SL PRN (15:15)
[2018-02-16] MEDS ORDERED: KLOR10TA6 PO (15:17)
[2018-02-16] MEDS ORDERED: MONT10TA4 PO (15:17)
[2018-02-16] MEDS ORDERED: IMIT100T PO (15:17)
[2018-02-16] MEDS ORDERED: OMEP20TA93 PO (15:17)
[2018-02-16] MEDS ORDERED: BUPR300T PO (15:17)
[2018-02-16] MEDS ORDERED: CYPR4TAB PO (15:17)
[2018-02-16] MEDS ORDERED: [UNRECOGNIZED DRUG - CODE] EACH EYE (15:17)
[2018-02-16] MEDS ORDERED: DIAZ5TAB PO (15:17)
[2018-02-16] MEDS ORDERED: MIRA50TA PO (15:17)
[2018-02-16] MEDS ORDERED: RESP: ALBUTEROL 0.63 MG/3 ML NEB (PRN) NEB (15:30)
[2018-02-16] MEDS ORDERED: SODIUM CHLORIDE 0.9% FLUSH 10 ML FLUSH IV FLUSH PRN (15:30)
[2018-02-16] MEDS ORDERED: MORPHINE SULFATE 2 MG/ML SYRINGE IV PUSH PRN (15:30)
[2018-02-16] MEDS ORDERED: ONDANSETRON ODT 4 MG TAB PO PRN (15:30)
[2018-02-16] MEDS ORDERED: SENNOSIDES 8.6 MG TAB PO PRN (15:30)
[2018-02-16] MEDS ORDERED: HYDROCORTISONE 10 MG TAB PO ONE (15:30)
[2018-02-16] MEDS ORDERED: ACETAMINOPHEN/HYDROcodone 325 MG/5 MG TAB PO PRN (15:30)
[2018-02-16] MEDS ORDERED: CARVEDILOL 12.5 MG TAB PO ONE (15:30)
[2018-02-16] MEDS ORDERED: ASPIRIN EC 81 MG TABEC PO ONE (15:30)
[2018-02-16] MEDS ORDERED: LACTULOSE SYRUP 20 GM/30 ML CUP PO PRN (15:30)
[2018-02-16] MEDS ORDERED: ACETAMINOPHEN 325 MG TAB PO PRN ×2 (15:30)
[2018-02-16] MEDS ORDERED: BISACODYL 10 MG SUPP RECTAL PRN (15:30)
[2018-02-16] MEDS ORDERED: hydrALAZINE HCL 20 MG/ML VIAL IV PUSH PRN (15:30)
[2018-02-16] MEDS ORDERED: cloNIDine HCL 0.1 MG TAB PO PRN (15:30)
[2018-02-16] MEDS ORDERED: LEVOTHYROXINE SODIUM 100 MCG TAB PO ONE (15:30)
[2018-02-16] MEDS ORDERED: NALOXONE HCL 0.4 MG/ML AMP IV PUSH PRN (15:30)
--- NOTE | 2018-02-16 15:42 | HHI.HP ---
[facility] Berny [facility] M.D. Admission Diagnosis Generalized weakness, renal insufficiency, leukocytosis Diagnoses: Chief Complaint: Fall Travel History International Travel<30 Days: No Contact w/Intl Traveler <30 Da: No Traveled to Known Affected Are: No History of Present Illness This is a 82-year-old female who was brought in by EMS for evaluation after fall. Police was requested for person check by her friend who had not seen her in the past 4 days. EMS found her house in disarray and patient lying on the ground. DCF was called to investigate. Patient does not recall entire events. She denies falling and passing out. States she was feeling weak like she was hit by a flu and was unable to get up. She complains of a right shoulder discomfort which is already improving. She does not think she was on the ground for 4 days. States she has been compliant with her medications. She is alert and oriented. Denies fever, chills, cough, abdominal pain, UTI symptoms and diarrhea. Patient was admitted over a month ago after sustaining a fall sustaining a facial laceration. In the emergency room trauma workup was negative for fractures. She was found to have acute kidney injury with acidosis and elevated CK and AST, leukocytosis, elevated TSH and blood pressure. All other systems reviewed negative Review of Systems Except as stated in HPI: all other systems reviewed are Neg Past Family Social History Past Medical History As previously mentioned history of adrenal insufficiency on Cortef, hypothyroidism, valvular heart disease, hypertension, asthma, anxiety and depression, IBS, GERD, overactive bladder, migraines and hypothyroidism Past Surgical History Colon resection, appendectomy, orthopedic surgery involving left wrist, bladder sling, hysterectomy, fusion of C5 and C6 Reported Medications ER nurse to verify home meds. States she takes Coreg, Cortef 10 mg in the morning 5 mg in the afternoon and 5 mg at bedtime. She already weaned herself off antidepressants Allergies: Coded Allergies: Sulfa (Sulfonamide Antibiotics) (Verified Allergy, Severe, HIVES, SWELLING , 02/06/18) gluten (Unverified Allergy, Severe, Cramping, 02/06/18) PT DESCRIBES SEVERE STOMACH CRAMPS AFTER EATING GLUTEN lactose (Unverified Allergy, Mild, Diarrhea, 02/06/18) meperidine (Unverified Adverse Reaction, Mild, nausea, 02/06/18) Family History No CVA Social History Does not smoke or drink she lives alone Physical Exam Vital Signs Vital Signs Date Time Temp Pulse Resp B/P (MAP) Pulse Ox O2 Delivery O2 Flow Rate FiO2 02/16/18 15:00 70 14 150/64 (92) 97 Room Air 02/16/18 13:00 70 14 187/87 (120) 97 Room Air 02/16/18 11:02 98.8 101 20 180/116 (137) 95 Physical Exam GENERAL: This is a well-nourished, well-developed patient, in no apparent distress. SKIN: No rashes, ecchymoses or lesions. Cool and dry. Healed lac frontal area HEAD: Normocephalic. No temporal or scalp tenderness. EYES: Pupils equal round and reactive. Extraocular motions intact. No scleral icterus. No injection or drainage. ENT: Nose without bleeding, purulent drainage or septal hematoma. Throat without erythema, tonsillar hypertrophy or exudate. Uvula midline. Airway patent. NECK: Trachea midline. No JVD or lymphadenopathy. Supple, nontender, no meningeal signs. CARDIOVASCULAR: Regular rate and rhythm without gallops, or rubs. RESPIRATORY: Clear to auscultation. Breath sounds equal bilaterally. No wheezes , rales, or rhonchi. GASTROINTESTINAL: Abdomen soft, non-tender, nondistended. No guarding. MUSCULOSKELETAL: Extremities without clubbing, cyanosis, or edema. No joint tenderness, effusion, or edema noted. No calf tenderness. Negative Homans sign bilaterally. Tender right shoulder with no swelling or redness limited range of motion secondary to pain NEUROLOGICAL: Awake and alert. Cranial nerves II through XII intact. Motor and sensory grossly within normal limits. Five out of 5 muscle strength in all muscle groups. Normal speech. Laboratory Laboratory Tests Test 02/16/18 11:30 02/16/18 12:18 02/16/18 12:52 White Blood Count 18.0 Red Blood Count 4.47 Hemoglobin 13.6 Hematocrit 39.5 Mean Corpuscular Volume 88.3 Mean Corpuscular Hemoglobin 30.3 Mean Corpuscular Hemoglobin Concent 34.3 Red Cell Distribution Width 14.1 Platelet Count 268 Mean Platelet Volume 8.6 Neutrophils (%) (Auto) 89.2 Lymphocytes (%) (Auto) 3.8 Monocytes (%) (Auto) 6.4 Eosinophils (%) (Auto) 0.1 Basophils (%) (Auto) 0.5 Neutrophils # (Auto) 16.0 Lymphocytes # (Auto) 0.7 Monocytes # (Auto) 1.2 Eosinophils # (Auto) 0.0 Basophils # (Auto) 0.1 CBC Comment DIFF FINAL Differential Comment Prothrombin Time 11.1 Prothromb Time International Ratio 1.1 Activated Partial Thromboplast Time 24.0 Blood Urea Nitrogen 40 Creatinine 1.31 Random Glucose 104 Total Protein 8.0 Albumin 3.6 Calcium Level 10.1 Magnesium Level 2.6 Alkaline Phosphatase 86 Aspartate Amino Transf (AST/SGOT) 48 Alanine Aminotransferase (ALT/SGPT) 18 Total Bilirubin 1.5 Sodium Level 141 Potassium Level 5.7 4.4 Chloride Level 110 Carbon Dioxide Level 17.6 Anion Gap 13 Estimat Glomerular Filtration Rate 39 Total Creatine Kinase 278 Creatine Kinase MB 2.7 Creatine Kinase MB % 1.0 Troponin I LESS THAN 0.02 Thyroid Stimulating Hormone 3rd Gen 23.600 Urine Color YELLOW Urine Turbidity CLEAR Urine pH 6.0 Urine Specific Minter 1.019 Urine Protein 100 Urine Glucose (UA) NEG Urine Ketones 40 Urine Occult Blood NEG Urine Nitrite NEG Urine Bilirubin NEG Urine Urobilinogen 1.0 Urine Leukocyte Esterase NEG Urine WBC 1 Urine Squamous Epithelial Cells <1 Urine Mucus FEW Microscopic Urinalysis Comment CULT NOT INDICATED Lactic Acid Level 1.8 Date/Time Source Procedure Growth Status 02/16/18 12:51 Blood Peripheral Aerobic Blood Culture Pending Received 02/16/18 12:51 Blood Peripheral Anaerobic Blood Culture Pending Received Result Diagram: 02/16/18 1130 02/16/18 1252 Imaging Oh Last Impressions Head CT 02/16/18 1110 Signed Impressions: CONCLUSION: Chest X-Ray 02/16/18 1110 Signed Impressions: CONCLUSION: No acute findings. Cervical Spine CT 02/16/18 1110 Signed Impressions: CONCLUSION: Shoulder X-Ray 02/16/18 0000 Signed Impressions: CONCLUSION: Caprini VTE Risk Assessment Caprini VTE Risk Assessment: Mod/High Risk (score >= 2) Caprini Risk Assessment Model Point Value = 1 Point Value = 2 Point Value = 3 Point Value = 5 Age 41-60 Minor surgery BMI > 25 kg/m2 Swollen legs Varicose veins or History of unexplained or recurrent spontaneous Oral contraceptives or hormone replacement Sepsis (< 1 month) Serious lung disease, including pneumonia (< 1 month) Abnormal pulmonary function Acute myocardial infarction Congestive heart failure (< 1 month) History of inflammatory bowel disease Medical patient at bed rest Age 61-74 Arthroscopic surgery Major open surgery (> 45 min) Laparoscopic surgery (> 45 min) Malignancy Confined to bed (> 72 hours) Immobilizing plaster cast Central venous access Age >= 75 History of VTE Family history of VTE Factor V Leiden Prothrombin [id number] Lupus anticoagulant Anticardiolipin antibodies Elevated serum homocysteine Heparin-induced thrombocytopenia Other congenital or acquired thrombophilia Stroke (< 1 month) Elective arthroplasty Hip, pelvis, or leg fracture Acute spinal cord injury (< 1 month) Prophylaxis Regimen Total Risk Factor Score Risk Level Prophylaxis Regimen 0-1 Low Early ambulation 2 Moderate Order ONE of the following: *Sequential Compression Device (SCD) *Heparin 5000 units SQ BID 3-4 Higher Order ONE of the following medications: *Heparin 5000 units SQ TID *Enoxaparin/Lovenox 40 mg SQ daily (WT < 150 kg, CrCl > 30 mL/min) *Enoxaparin/Lovenox 30 mg SQ daily (WT < 150 kg, CrCl > 10-29 mL/min) *Enoxaparin/Lovenox 30 mg SQ BID (WT < 150 kg, CrCl > 30 mL/min) AND/OR *Sequential Compression Device (SCD) 5 or more Highest Order ONE of the following medications: *Heparin 5000 units SQ TID (Preferred with Epidurals) *Enoxaparin/Lovenox 40 mg SQ daily (WT < 150 kg, CrCl > 30 mL/min) *Enoxaparin/Lovenox 30 mg SQ daily (WT < 150 kg, CrCl > 10-29 mL/min) *Enoxaparin/Lovenox 30 mg SQ BID (WT < 150 kg, CrCl > 30 mL/min) AND *Sequential Compression Device (SCD) Assessment and Plan Problem List: (1) Acute renal insufficiency ICD Code: N28.9 - Disorder of kidney and ureter, unspecified Status: Acute Assessment and Plan This is a 82-year-old female who was brought in by EMS for evaluation after fall. Police was requested for person check by her friend who had not seen her in the past 4 days. EMS found her house in disarray and patient lying on the ground. DCF was called to investigate. Patient does not recall entire events. Recurrent falls questionable syncope. Fall precautions. PT evaluation and consult patient's neurologist. Obtain orthostatics Right shoulder contusion. Physical therapy evaluation. Pain management consult regarding narcotics Uncontrolled hypertension likely from missing medications. Restart Coreg and continue to monitor with as needed clonidine and hydralazine Acute kidney injury with acidosis and elevated CK and AST from rhabdomyolysis secondary to fall. IV hydration, avoid nephrotoxins and repeat BMP and CK in the morning. Leukocytosis likely reactive. Urinalysis and chest x-ray without acute findings. Will monitor Elevated TSH with history of hypothyroidism again secondary to missing medications. Restart Synthroid Multiple medical conditions of adrenal insufficiency on Cortef, valvular heart disease, asthma, anxiety and depression, IBS, GERD, overactive bladder and migraines. Continue outpatient medications as appropriate DVT prophylaxis with SCD and subcu heparin Noah Hagan MD February 16, 2018 15:42
[2018-02-16] MEDS: HEPARIN SODIUM - SQ 10,000 UNITS/ML VIAL SQ SCH (16:04)
--- NOTE | 2018-02-16 16:17 | PD.CONS ---
History of Present Illness Service Neurology Consult Requested By Medical Reason for Consult Falls, possible syncope Primary Care Physician Berny Bunch M.D. History of Present Illness 82-year-old female brought to the emergency department for further evaluation of generalized weakness. Friend noticed that the patient had been around past few days. She then found on the ground week. Noted to have elevated TSH level , elevated CK level. She does have a history of hypothyroidism. Denies any history of TIA stroke or seizures. Review of Systems Except as stated in HPI: all other systems reviewed are Neg Past Family Social History Past Medical History hypothyroidism, valvular heart disease, hypertension, asthma, anxiety and depression, IBS, GERD, overactive bladder, migraines Past Surgical History Colon resection, appendectomy, hysterectomy, cervical fusion at C5, 6 Reported Medications Reviewed Allergies: Coded Allergies: Sulfa (Sulfonamide Antibiotics) (Verified Allergy, Severe, HIVES, SWELLING , 02/06/18) gluten (Unverified Allergy, Severe, Cramping, 02/06/18) PT DESCRIBES SEVERE STOMACH CRAMPS AFTER EATING GLUTEN lactose (Unverified Allergy, Mild, Diarrhea, 02/06/18) meperidine (Unverified Adverse Reaction, Mild, nausea, 02/06/18) Family History Noncontributory Social History Does not smoke or drink she lives alone Review of Systems All other ROS: ROS reviewed as documented in chart Past Family Social History Allergies: Coded Allergies: Sulfa (Sulfonamide Antibiotics) (Verified Allergy, Severe, HIVES, SWELLING , 02/06/18) gluten (Unverified Allergy, Severe, Cramping, 02/06/18) PT DESCRIBES SEVERE STOMACH CRAMPS AFTER EATING GLUTEN lactose (Unverified Allergy, Mild, Diarrhea, 02/06/18) meperidine (Unverified Adverse Reaction, Mild, nausea, 02/06/18) Active Ordered Medications Current Medications Medications (Trade) Dose Ordered Sig/Roni Route Start Time Stop Time Status Last Admin (Nitrostat Sl) 0.4 mg Q5M PRN SL 02/16/18 15:15 (Cortef) 10 mg DAILY PO 02/17/18 09:00 (Cortef) 10 mg HS PO 02/16/18 21:00 (Cortef) 5 mg DAILY@1500 PO 02/17/18 15:00 (Coreg) 12.5 mg Q12HR PO 02/16/18 21:00 (Apresoline Inj) 10 mg Q6H PRN IV PUSH 02/16/18 15:30 (Catapres) 0.1 mg Q6H PRN PO 02/16/18 15:30 (Ecotrin Ec) 81 mg DAILY PO 02/17/18 09:00 (Albuterol Neb) 0.63 mg Q4HR NEB PRN NEB 02/16/18 15:30 (Synthroid) 100 mcg DAILY@0600 PO 02/17/18 06:00 Sodium Chloride 1,000 ml @ 70 mls/hr [id number] IV 02/16/18 15:45 (NS Flush) 2 ml UNSCH PRN IV FLUSH 02/16/18 15:30 (NS Flush) 2 ml BID IV FLUSH 02/16/18 21:00 (Tylenol) 650 mg Q4H PRN PO 02/16/18 15:30 (Zofran Odt) 4 mg Q6H PRN PO 02/16/18 15:30 (Heparin Inj) 5,000 units Q12H SQ 02/16/18 15:30 02/16/18 16:04 (Tylenol) 650 mg Q6H PRN PO 02/16/18 15:30 (Wallace 5-325 Mg) 1 tab Q4H PRN PO 02/16/18 15:30 (Wallace 7.5-325 Mg) 1 tab Q4H PRN PO 02/16/18 15:30 (Morphine Inj) 1 mg Q3H PRN IV PUSH 02/16/18 15:30 (Narcan Inj) 0.4 mg UNSCH PRN IV PUSH 02/16/18 15:30 (Miguelina-Colace) 1 tab BID PO 02/16/18 21:00 (Senokot) 17.2 mg Q12H PRN PO 02/16/18 15:30 (Dulcolax Supp) 10 mg DAILY PRN RECTAL 02/16/18 15:30 (Lactulose Liq) 30 ml DAILY PRN PO 02/16/18 15:30 Exam I&O / VS 02/16/18 02/16/18 02/17/18 15:00 23:00 07:00 Intake Total 1000 ml 200 ml Balance 1000 ml 200 ml Intake Oral 200 ml IV Total 1000 ml Vital Signs Date Time Temp Pulse Resp B/P (MAP) Pulse Ox O2 Delivery O2 Flow Rate FiO2 02/16/18 15:31 89 14 168/74 (105) 101 14 146/73 (97) 100 14 143/79 (100) 02/16/18 15:00 70 14 150/64 (92) 97 Room Air 02/16/18 13:00 70 14 187/87 (120) 97 Room Air 02/16/18 11:02 98.8 101 20 180/116 (137) 95 General: Alert and Oriented, No acute distress Eye: EOMI Musculoskeletal: ROM Neurologic: Alert, Oriented, Normal motor, Normal DTR's Psychiatric: Cooperative, Appropriate mood & affect Exam Comments ox 1-2, short term memory loss. follows, calm, no focal weakness. gait not assessed 2/2 fall risk Review/Management Diagnosis/Plan: (1) Generalized weakness ICD Codes: R53.1 - Weakness Status: Acute Plan: This may be related to hypothyroidism versus toxic metabolic versus noncompliance with medications In addition CT brain scan demonstrates severe white matter changes. Advanced leukoencephalopathy can also affect gait and cognition Recommendations Orthostatics Telemetry MRI of the brain and C-spine EEG Follow B12 level (2) Hypothyroidism ICD Codes: E03.9 - Hypothyroidism Status: Chronic Plan: This may be related to undertreatment or poor compliance from the patient Hypothyroidism could also be causing her weakness and gait imbalance (3) HTN (hypertension) ICD Codes: I10 - Essential (primary) hypertension Status: Chronic Plan: Blood pressure control (4) Migraine ICD Codes: G43.909 - Migraine, unspecified, not intractable, without status migrainosus Status: Chronic Plan: Pain control Problem Qualifiers (1) HTN (hypertension): Qualified Codes: I10 - Essential (primary) hypertension Milo Arriaga MD February 16, 2018 16:17
--- NOTE | 2018-02-16 16:54 | EKG ---
Date Performed: 02/16/2018 Time Performed: 11:18:24 PTAGE: 82 years EKG: Sinus rhythm MARKED LEFT AXIS DEVIATION SEPTAL MYOCARDIAL INFARCTION MODERATE T-WAVE ABNORMALITY, CONSIDER LATERA L ISCHEMIA ABNORMAL ECG PREVIOUS TRACING : 05/19/2017 22.02 Since the previous tracing, no significant change noted DOCTOR: Jaz Howard Interpretating Date/Time 02/16/2018 16:52:06
[2018-02-16] MEDS: SODIUM CHLOR 0.9% 1000 ML INJ 1,000 ML IV SCH (17:33)
[2018-02-16 20:41] LABS: FREE T3 0.81 PG/ML (2.18-3.98); FREE T4 0.79 NG/DL (0.76-1.46); TROPONIN I LESS THAN 0.02 NG/ML (0.02-0.05)
[2018-02-16] MEDS: SODIUM CHLORIDE 0.9% FLUSH 10 ML FLUSH IV FLUSH SCH (20:45)
[2018-02-16] MEDS: CARVEDILOL 12.5 MG TAB PO SCH (20:45)
[2018-02-16] MEDS: HYDROCORTISONE 10 MG TAB PO SCH (20:46)
[2018-02-16] MEDS: DOCUSATE SODIUM 50 MG/SENNA 8.6 MG TAB PO SCH (20:49)
--- NOTE | 2018-02-16 21:00 | EKG ---
Date Performed: 02/16/2018 Time Performed: 19:24:08 PTAGE: 82 years EKG: Baseline artifact present Sinus rhythm BORDERLINE LEFT AXIS DEVIATION NONSPECIFIC T-WAVE ABNORMALITY BORDERLINE ECG No significant change f rom prior electrocardiogram. PREVIOUS TRACING : 02/16/2018 11.18 DOCTOR: Leo Walters Interpretating Date/Time 02/16/2018 20:58:50
[2018-02-17] VITALS (8 sets, daily range): BP systolic 111–148; BP diastolic 53–119; PULSE 60–74; RESP 16–18; TEMP 97.3–98.6; O2SAT 96–99
[2018-02-17 00:20] LABS: TROPONIN I LESS THAN 0.02 NG/ML (0.02-0.05)
[2018-02-17] MEDS: HEPARIN SODIUM - SQ 10,000 UNITS/ML VIAL SQ SCH ×2 (04:26→15:53)
[2018-02-17] MEDS: LEVOTHYROXINE SODIUM 100 MCG TAB PO SCH (05:20)
[2018-02-17] MEDS: SODIUM CHLOR 0.9% 1000 ML INJ 1,000 ML IV SCH (05:21)
[2018-02-17 07:30] LABS: AUTOMATED NEUTROPHIL # 8.8 TH/MM3 (1.8-7.7); BASOPHIL # 0.1 TH/MM3 (0-0.2); BASOPHIL % 0.5 % (0.0-2.0); EOSINOPHIL % 0.2 % (0.0-4.0); HEMATOCRIT 32.8 % (35.0-46.0); HEMOGLOBIN 11.5 GM/DL (11.6-15.3); LYMPH % 7.9 % (9.0-44.0); LYMPHOCYTE # 0.8 TH/MM3 (1.0-4.8); MEAN CELL VOLUME 88.8 FL (80.0-100.0); MEAN CORPUSCULAR HEMOGLOBIN 31.2 PG (27.0-34.0); MEAN CORPUSCULAR HGB CONC 35.1 % (32.0-36.0); MEAN PLATELET VOLUME 9.2 FL (7.0-11.0); MONO % 3.9 % (0.0-8.0); MONOCYTE # 0.4 TH/MM3 (0-0.9); NEUT % 87.5 % (16.0-70.0); PLATELET COUNT 204 TH/MM3 (150-450); RED BLOOD COUNT 3.69 MIL/MM3 (4.00-5.30); WHITE BLOOD COUNT 10.1 TH/MM3 (4.0-11.0)
[2018-02-17 08:09] LABS: BICARBONATE 17.6 MEQ/L (21.0-32.0); CALCIUM 8.3 MG/DL (8.5-10.1); CREATININE 0.85 MG/DL (0.50-1.00)
[2018-02-17] MEDS: SODIUM CHLORIDE 0.9% FLUSH 10 ML FLUSH IV FLUSH SCH ×2 (09:00→20:43)
--- NOTE | 2018-02-17 09:16 | RADRPT ---
EXAM DATE: 02/17/2018 9:06 AM EDT AGE/SEX: 82 years / Female INDICATIONS: CVA. Pt found on floor at home. Weakness. CLINICAL DATA: This is the patient's initial encounter. Patient reports that signs and symptoms have been present for 2 days and indicates a pain score of 3/10. MEDICAL/SURGICAL HISTORY: Hypertension. Hysterectomy. Appendectomy. Fusion, cervical. [place] [facility] [place] [facility] [place]16/2018. . TECHNIQUE: Multiplanar, multisequence examination of the brain was performed without contrast. FINDINGS: Cerebrum: The ventricles are mildly prominent for age but stable compared to the prior studies.. The re is bilateral cortical atrophy. No evidence of midline shift, mass lesion, hemorrhage or acute infa rction. No extraaxial fluid collections are seen. The pituitary gland and suprasellar cistern are n ormal in configuration. White Matter: There is at least moderate diffuse chronic white matter changes bilaterally. This remigio elates with the recent CT scan. Posterior Fossa: The cerebellum and brainstem are intact. The 4th ventricle is midline. The cerebel lopontine angle is unremarkable. The cerebellar tonsils are normal in position. Diffusion Imaging: No focal areas of restricted diffusion are seen. No evidence of acute infarction . Extracranial: The visualized portions of the orbits and paranasal sinuses are unremarkable. CONCLUSION: 1. Diffuse bilateral cortical atrophy and chronic white matter changes. 2. No significant changes compared to the prior CT scans. Electronically signed by: Ismael Lynch MD 02/17/2018 9:15 AM EDT
--- NOTE | 2018-02-17 09:48 | RADRPT ---
EXAM DATE: 02/17/2018 9:29 AM EDT AGE/SEX: 82 years / Female INDICATIONS: Pain. Pt fell at home. CLINICAL DATA: This is the patient's initial encounter. Patient reports that signs and symptoms have been present for 2 days and indicates a pain score of 3/10. MEDICAL/SURGICAL HISTORY: Hypertension. Appendectomy. Fusion, cervical. COMPARISON: [facility] [place] CERVICAL [place]INE W/O CONTRAST, 02/16/2018. . TECHNIQUE: Multiplanar, multisequence MRI examination of the cervical spine was performed without co ntrast. FINDINGS: Vertebrae: There is an anterior cervical fusion plate at the C5-C6 level. There is fusion at this le tess. There is prominent hypertrophic change at the C1-C2 articulation especially posterior to the den s causing an impression on the anterior aspect of the thecal sac. There continues to be CSF around th e cord. Alignment: There is 4 mm of anterior subluxation of C3 on C4. Cord: Normal configuration and signal. Post Fossa: The cerebellar tonsils are normal in position. C2-C3: The thecal sac has a normal configuration. There is no evidence of disc herniation or spinal canal stenosis. The neural foramina are patent bilaterally. There is facet hypertrophy. C3-C4: Again noted is the anterior subluxation of C3 on C4. The subluxation leads to moderate narrow ing of the thecal sac with a thin layer of CSF seen around the cord. There is severe facet hypertroph y being worse on the right. There is narrowing of the right neural foramina. Left neural foramina is patent.. C4-C5: The thecal sac has a normal configuration. There is no evidence of disc herniation or spinal canal stenosis. The neural foramina are patent bilaterally. There is facet hypertrophy being worse on the right. C5-C6: The patient is status post fusion at this level. There is osteophytic ridging seen at the lef t lateral recess region at the disc level. This causes a mild impression on the anterior left side of the thecal sac. There is narrowing of the left neural foramina. The right neural foramina is patent. The disc appears completely fused. C6-C7: The disc space is narrowed. There is mild disc bulge and osteophytic ridging causing a modera te impression on the thecal sac. The disc and osteophytic changes are asymmetric and worse on the lef t. There continues be a thin layer of CSF seen around the cord. There is uncovertebral hypertrophy. T here is mild facet hypertrophy. There is narrowing of the neural foramina bilaterally. C7-T1: No epidural impressions seen. CONCLUSION: 1. Status post fusion at the C5-C6 level. 2. 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 The patient has severe facet hypertrophy at this level. 3. Moderate narrowing of the thecal sac at the C3-C4 level and the C6-C7 level. 4. Mild narrowing of thecal sac at the C5-C6 level secondary to osteophytic ridging on the left side . The disc is fused. Electronically signed by: Keith Pineda MD 02/17/2018 9:47 AM EDT
[2018-02-17] MEDS: ACETAMINOPHEN/HYDROcodone 325 MG/7.5 MG TAB PO PRN (10:15)
[2018-02-17] MEDS: HYDROCORTISONE 10 MG TAB PO SCH ×3 (10:18→20:43)
[2018-02-17] MEDS: DOCUSATE SODIUM 50 MG/SENNA 8.6 MG TAB PO SCH ×2 (10:18→20:43)
[2018-02-17] MEDS: CARVEDILOL 12.5 MG TAB PO SCH ×2 (10:18→20:43)
[2018-02-17] MEDS: ASPIRIN EC 81 MG TABEC PO SCH (10:18)
--- NOTE | 2018-02-17 14:42 | EKG ---
Date Performed: 02/17/2018 Time Performed: 00:25:56 PTAGE: 82 years EKG: Sinus rhythm Leftward axis Possible anterior infarct - age undetermined Inferior/lateral T wave changes are nonsp ecific Abnormal ECG No significant change from prior electrocardiogram. DOCTOR: Leo Walters Interpretating Date/Time 02/17/2018 14:41:30
--- NOTE | 2018-02-17 16:43 | HHI.PR ---
Subjective Remarks Denies cp/sob Afebrile Denies cough, diarrhea, abdominal pain. c/o neck pain Objective Vitals Vital Signs Date Time Temp Pulse Resp B/P (MAP) Pulse Ox O2 Delivery O2 Flow Rate FiO2 02/17/18 12:00 97.3 61 18 130/63 (85) 98 02/17/18 08:00 63 02/17/18 08:00 97.4 62 18 145/119 (128) 99 02/17/18 05:12 133/62 (85) 02/17/18 05:00 98.6 62 18 145/103 (117) 96 02/17/18 04:00 145/103 (117) 133/62 (85) 111/53 (72) 02/17/18 00:00 97.8 74 18 135/64 (87) 98 02/16/18 20:48 97 Nasal Cannula 2.00 02/16/18 20:00 72 02/16/18 19:54 97.7 77 18 130/59 (82) 98 02/16/18 18:54 97.8 86 20 144/67 (92) 97 02/16/18 17:28 I/O 02/16/18 02/16/18 02/16/18 02/17/18 02/17/18 02/17/18 07:00 15:00 23:00 07:00 15:00 23:00 Intake Total 1000 ml 200 ml Balance 1000 ml 200 ml Intake Oral 200 ml IV Total 1000 ml # Voids 2 # Bowel Movements 1 Result Diagram: 02/17/18 0555 02/17/18 0555 Imaging Last Impressions Cervical Spine MRI 02/17/18 0000 Signed Impressions: CONCLUSION: 1. Status post fusion at the C5-C6 level. 2. 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 T he patient has severe facet hypertrophy at this level. 3. Moderate narrowing of the thecal sac at the C3-C4 level and the C6-C7 level . 4. Mild narrowing of thecal sac at the C5-C6 level secondary to osteophytic ri dging on the left side. The disc is fused. Brain MRI 02/17/18 0000 Signed Impressions: CONCLUSION: 1. Diffuse bilateral cortical atrophy and chronic white matter changes. 2. No significant changes compared to the prior CT scans. Head CT 5/22/18 1110 Signed Impressions: CONCLUSION: 1. Generalized atrophy 2. Moderate to severe chronic white matter disease characteristic of small ves barrera ischemic changes. 3. No evidence of acute infarct, hemorrhage, mass or edema. Chest X-Ray 02/16/181109 Signed Impressions: CONCLUSION: No acute findings. Cervical Spine CT 02/16/181109 Signed Impressions: CONCLUSION: 1. Stable CT scan of the cervical spine compared to the prior study of 8. 2. No acute bony fracture. 3. No change in the anterior subluxation of C3 over C4. Shoulder X-Ray 02/16/18 0000 Signed Impressions: CONCLUSION: No acute findings. Mild degenerative change. Objective Remarks GENERAL: This is a well-nourished, well-developed patient, in no apparent distress. SKIN: No rashes, ecchymoses. Cool and dry. Healed lac frontal area HEAD: Normocephalic. No temporal or scalp tenderness. EYES: Pupils equal round and reactive. Extraocular motions intact. No scleral icterus. No injection or drainage. ENT: Nose without bleeding, purulent drainage or septal hematoma. Throat without erythema, tonsillar hypertrophy or exudate. Uvula midline. Airway patent. NECK: Trachea midline. No JVD or lymphadenopathy. Supple, nontender, no meningeal signs. CARDIOVASCULAR: Regular rate and rhythm without gallops, or rubs. RESPIRATORY: Clear to auscultation. Breath sounds equal bilaterally. No wheezes , rales, or rhonchi. GASTROINTESTINAL: Abdomen soft, non-tender, nondistended. No guarding. MUSCULOSKELETAL: Extremities without clubbing, cyanosis, or edema. No joint tenderness, effusion, or edema noted. No calf tenderness. Negative Homans sign bilaterally. Tender right shoulder with no swelling or redness limited range of motion secondary to pain NEUROLOGICAL: Awake and alert. Cranial nerves II through XII intact. Motor and sensory grossly within normal limits. Five out of 5 muscle strength in all muscle groups. Normal speech. A/P Problem List: (1) Recurrent falls ICD Code: R29.6 - Repeated falls Status: Acute Plan: History of recurrent falls, questionable syncope. Continue fall precautions. PT consulted. Appreciate recommendations. Physical therapy recommended rehab placement. Patient has positive orthostatic vital signs with drop of blood pressure from 145-103-111/53. Neurology consulted. Head CT showed generalized atrophy, moderate to severe chronic white matter disease characteristic of small vessel ischemic changes. No evidence of acute infarct, hemorrhage, mass or edema. EKG and reviewed by me showed this rhythm with a ventricular rate of 93 bpm, marked left axis deviation moderate T-wave abnormality consider lateral ischemia. Repeat EKG. Serial EKGs 2 obtained after initial did not show many changes other than the last EKG having a less accentuated T-wave inversion on lateral leads. Troponin negative 2. The patient is chest pain-free. Chest x-ray negative for acute findings. (2) Contusion of right shoulder ICD Code: S40.011A - Contusion of right shoulder, initial encounter Plan: Shoulder x-ray does not show any acute findings. Continue pain control. Discontinue morphine sulfate and start oral Toradol. (3) Hypothyroidism ICD Code: E03.9 - Hypothyroidism, unspecified Plan: TSH very elevated at 23.600. Free T4 normal. Continue levothyroxine. Patient previously on levothyroxine 75 mcg p.o. daily. Continue levothyroxine 100 m p.o. daily. (4) Leukocytosis ICD Code: D72.829 - Elevated white blood cell count, unspecified Plan: Leukocytosis resolved. Likely reactive. Continue to monitor CBC. (5) Adrenal cortical insufficiency ICD Code: E27.40 - Unspecified adrenocortical insufficiency Plan: Continue Cortef. (6) CARLOS A (acute kidney injury) ICD Code: N17.9 - Acute kidney failure, unspecified Plan: Likely due to prerenal azotemia. Treated with IV fluids, now resolved and creatinine back to baseline at 0.85. (7) Metabolic acidosis ICD Code: E87.2 - Acidosis Plan: Suspect hyperchloremic metabolic acidosis. Patient started on IV normal saline on admission. DC IV normal saline. Problem Qualifiers (1) Contusion of right shoulder: Qualified Codes: S40.011A - Contusion of right shoulder, initial encounter (2) Leukocytosis: Qualified Codes: D72.829 - Elevated white blood cell count, unspecified Harshad Chowdhury MD February 17, 2018 16:43
[2018-02-18] VITALS (7 sets, daily range): BP systolic 142–175; BP diastolic 64–74; PULSE 52–70; RESP 16–18; TEMP 97.4–98.6; O2SAT 97–100
[2018-02-18] MEDS: LEVOTHYROXINE SODIUM 100 MCG TAB PO SCH (04:43)
[2018-02-18] MEDS: HEPARIN SODIUM - SQ 10,000 UNITS/ML VIAL SQ SCH (04:43)
[2018-02-18 07:11] LABS: AUTOMATED NEUTROPHIL # 5.4 TH/MM3 (1.8-7.7); BASOPHIL % 0.6 % (0.0-2.0); EOSINOPHIL % 0.4 % (0.0-4.0); HEMATOCRIT 30.2 % (35.0-46.0); HEMOGLOBIN 10.6 GM/DL (11.6-15.3); LYMPH % 11.6 % (9.0-44.0); LYMPHOCYTE # 0.8 TH/MM3 (1.0-4.8); MEAN CELL VOLUME 88.2 FL (80.0-100.0); MEAN CORPUSCULAR HGB CONC 35.1 % (32.0-36.0); MEAN PLATELET VOLUME 8.8 FL (7.0-11.0); MONO % 3.8 % (0.0-8.0); MONOCYTE # 0.3 TH/MM3 (0-0.9); NEUT % 83.6 % (16.0-70.0); PLATELET COUNT 197 TH/MM3 (150-450); RED BLOOD COUNT 3.42 MIL/MM3 (4.00-5.30); RED CELL DISTRIBUTION WIDTH 13.8 % (11.6-17.2); WHITE BLOOD COUNT 6.5 TH/MM3 (4.0-11.0)
--- NOTE | 2018-02-18 08:03 | MG ---
cc: Kentrell Chawla MD EEG [phone] An 82-year-old woman with depression, anxiety. Diffuse 5-6 Hz slowing is noted. Recording overall is synchronous and symmetrical. A lot of left temporal muscle artifact is seen, which obscures the background. Some Delta slowing into the 2 Hz range is noted. I do not see any epileptiform or seizure activity. Photic stimulation was performed without significant posterior driving. IMPRESSION: Moderate diffuse encephalopathy. No focal abnormalities noted. No seizure activity was seen. Kentrell Chawla MD DJM/TL , 07:54 AM , 08:02 AM
[2018-02-18 08:07] LABS: ALBUMIN 2.6 GM/DL (3.4-5.0); ALKALINE PHOSPHATASE 63 U/L (45-117); ALT (GPT) 19 U/L (10-53); AST (GOT) 22 U/L (15-37); BICARBONATE 19.3 MEQ/L (21.0-32.0); BLOOD UREA NITROGEN 21 MG/DL (7-18); CALCIUM 8.5 MG/DL (8.5-10.1); CHLORIDE 111 MEQ/L (98-107); CREATININE 0.76 MG/DL (0.50-1.00); GLOMERULAR FILTRATION RATE 73 ML/MIN (>89); GLUCOSE,RANDOM 88 MG/DL (74-106); PHOSPHORUS 2.7 MG/DL (2.5-4.9); SODIUM (NA) 141 MEQ/L (136-145); TOTAL BILIRUBIN ADULT 0.6 MG/DL (0.2-1.0); TOTAL PROTEIN 5.8 GM/DL (6.4-8.2)
--- NOTE | 2018-02-18 08:41 | HHI.PR ---
Review/Management Diagnosis/Plan: (1) Generalized weakness ICD Codes: R53.1 - Weakness Status: Acute Plan: This may be related to hypothyroidism versus toxic metabolic versus noncompliance with medications In addition CT brain scan demonstrates severe white matter changes. Advanced leukoencephalopathy can also affect gait and cognition Recommendations No to be orthostatic this may be the cause of her fall; in addition to hypothyroidism MRI brain C-spine without any acute abnormalities or any spinal cord injury Most concerned about mild cognitive impairment, prodromal Alzheimer's in this patient May require supervised living No driving Discharge planning (2) Hypothyroidism ICD Codes: E03.9 - Hypothyroidism Status: Chronic Plan: This may be related to undertreatment or poor compliance from the patient Hypothyroidism could also be causing her weakness and gait imbalance (3) HTN (hypertension) ICD Codes: I10 - Essential (primary) hypertension Status: Chronic Plan: Blood pressure control (4) Migraine ICD Codes: G43.909 - Migraine, unspecified, not intractable, without status migrainosus Status: Chronic Plan: Pain control Subjective Subjective Comments No acute events reported No headache No chest pain No dyspnea Active Medications Current Medications Medications (Trade) Dose Ordered Sig/Roni Route Start Time Stop Time Status Last Admin (Nitrostat Sl) 0.4 mg Q5M PRN SL 02/16/18 15:15 (Cortef) 10 mg DAILY PO 02/17/18 09:00 02/17/18 10:18 (Cortef) 10 mg HS PO 02/16/18 21:00 02/17/18 20:43 (Cortef) 5 mg DAILY@1500 PO 02/17/18 15:00 02/17/18 15:53 (Coreg) 12.5 mg Q12HR PO 02/16/18 21:00 02/17/18 20:43 (Apresoline Inj) 10 mg Q6H PRN IV PUSH 02/16/18 15:30 (Catapres) 0.1 mg Q6H PRN PO 02/16/18 15:30 (Ecotrin Ec) 81 mg DAILY PO 02/17/18 09:00 02/17/18 10:18 (Albuterol Neb) 0.63 mg Q4HR NEB PRN NEB 02/16/18 15:30 (Synthroid) 100 mcg DAILY@0600 PO 02/17/18 06:00 02/18/18 04:43 (NS Flush) 2 ml UNSCH PRN IV FLUSH 02/16/18 15:30 (NS Flush) 2 ml BID IV FLUSH 02/16/18 21:00 02/17/18 20:43 (Tylenol) 650 mg Q4H PRN PO 02/16/18 15:30 (Zofran Odt) 4 mg Q6H PRN PO 02/16/18 15:30 (Heparin Inj) 5,000 units Q12H SQ 02/16/18 15:30 Future Hold 02/18/18 04:43 (Tylenol) 650 mg Q6H PRN PO 02/16/18 15:30 ([place] 5-325 Mg) 1 tab Q4H PRN PO 02/16/18 15:30 ([place] 7.5-325 Mg) 1 tab Q4H PRN PO 02/16/18 15:30 02/17/18 10:15 (Morphine Inj) 1 mg Q3H PRN IV PUSH 02/16/18 15:30 (Narcan Inj) 0.4 mg UNSCH PRN IV PUSH 02/16/18 15:30 (Miguelina-Colace) 1 tab BID PO 02/16/18 21:00 02/17/18 20:43 (Senokot) 17.2 mg Q12H PRN PO 02/16/18 15:30 (Dulcolax Supp) 10 mg DAILY PRN RECTAL 02/16/18 15:30 (Lactulose Liq) 30 ml DAILY PRN PO 02/16/18 15:30 Allergies Allergies Coded Allergies Sulfa (Sulfonamide Antibiotics) (Verified Allergy, Severe, HIVES, SWELLING, 09/14) gluten (Unverified Allergy, Severe, Cramping, 02/06/18) lactose (Unverified Allergy, Mild, Diarrhea, 02/06/18) meperidine (Unverified Adverse Reaction, Mild, nausea, 02/06/18) Review of Systems All other ROS: ROS reviewed as documented in chart Exam I&O / VS Vital Signs Date Time Temp Pulse Resp B/P (MAP) Pulse Ox O2 Delivery O2 Flow Rate FiO2 02/18/18 08:00 97.6 52 18 146/64 (91) 99 02/18/18 04:00 98.2 53 16 146/65 (92) 100 02/18/18 00:00 98.6 70 16 142/68 (92) 98 02/17/18 20:00 61 02/17/18 20:00 98.4 72 16 140/62 (88) 96 02/17/18 16:00 97.6 60 18 148/67 (94) 97 02/17/18 12:00 97.3 61 18 130/63 (85) 98 General: Alert and Oriented, No acute distress Eye: EOMI Musculoskeletal: ROM Neurologic: Alert, Oriented, Normal motor, Normal DTR's Psychiatric: Cooperative, Appropriate mood & affect Exam Comments Awake alert oriented 2 not to the year, impaired short-term memory, current president she states Joanna Follows, extraocular movements intact no facial asymmetry neck supple strength good upper lower limbs no drift no clonus plantarflex response Objective Micro and Labs Laboratory Tests Test 02/18/18 06:17 White Blood Count 6.5 Red Blood Count 3.42 Hemoglobin 10.6 Hematocrit 30.2 Mean Corpuscular Volume 88.2 Mean Corpuscular Hemoglobin 31.0 Mean Corpuscular Hemoglobin Concent 35.1 Red Cell Distribution Width 13.8 Platelet Count 197 Mean Platelet Volume 8.8 Neutrophils (%) (Auto) 83.6 Lymphocytes (%) (Auto) 11.6 Monocytes (%) (Auto) 3.8 Eosinophils (%) (Auto) 0.4 Basophils (%) (Auto) 0.6 Neutrophils # (Auto) 5.4 Lymphocytes # (Auto) 0.8 Monocytes # (Auto) 0.3 Eosinophils # (Auto) 0.0 Basophils # (Auto) 0.0 CBC Comment DIFF FINAL Differential Comment Blood Urea Nitrogen 21 Creatinine 0.76 Random Glucose 88 Total Protein 5.8 Albumin 2.6 Calcium Level 8.5 Phosphorus Level 2.7 Magnesium Level 2.0 Alkaline Phosphatase 63 Aspartate Amino Transf (AST/SGOT) 22 Alanine Aminotransferase (ALT/SGPT) 19 Total Bilirubin 0.6 Sodium Level 141 Potassium Level 3.5 Chloride Level 111 Carbon Dioxide Level 19.3 Anion Gap 11 Estimat Glomerular Filtration Rate 73 Date/Time Source Procedure Growth Status 02/16/18 12:51 Blood Peripheral Aerobic Blood Culture - Preliminary NO GROWTH IN 1 DAY Resulted 02/16/18 12:51 Blood Peripheral Anaerobic Blood Culture - Preliminary NO GROWTH IN 1 DAY Resulted Milo Arriaga MD February 18, 2018 08:41
[2018-02-18] MEDS: DOCUSATE SODIUM 50 MG/SENNA 8.6 MG TAB PO SCH ×2 (09:27→21:00)
[2018-02-18] MEDS: CARVEDILOL 12.5 MG TAB PO SCH ×2 (09:27→22:11)
[2018-02-18] MEDS: ASPIRIN EC 81 MG TABEC PO SCH (09:28)
[2018-02-18] MEDS: HYDROCORTISONE 10 MG TAB PO SCH ×3 (09:28→22:11)
[2018-02-18] MEDS: SODIUM CHLORIDE 0.9% FLUSH 10 ML FLUSH IV FLUSH SCH ×2 (09:29→21:00)
--- NOTE | 2018-02-18 14:59 | PD.PSY.CON ---
Provisional Diagnosis Admission Date February 16, 2018 at 14:42 [place]. Psychological factors affecting a medical condition. History of Present Illness Service Psychiatry Consult Requested By Medicine Reason for Consult Decision-making capacity Primary Care Physician Berny Bunch M.D. 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 Police was requested for person check by her friend who had not seen her in the past 4 days. EMS found her house in disarray and patient lying on the ground. DCF was called to investigate. Patient does not recall entire events. She denies falling and passing out. States she was feeling weak like she was hit by a flu and was unable to get up. She complains of a right shoulder discomfort which is already improving. She does not think she was on the ground for 4 days. States she has been compliant with her medications. She is alert and oriented. Denies fever, chills, cough, abdominal pain, UTI symptoms and diarrhea. Patient was admitted over a month ago after sustaining a fall sustaining a facial laceration. In the emergency room trauma workup was negative for fractures. She was found to have acute kidney injury with acidosis and elevated CK and AST, leukocytosis, elevated TSH and blood pressure. Consulted to psychiatry to address decision-making capacity. On psychiatric evaluation the patient is calm, cooperative. Reports good mood. She says that she is getting ready to go back home. Patient denies symptomatology of depression, she denies anxiety, donald and psychosis. She denies suicidal and homicidal ideation. The patient is fully oriented 3. Able to verbalize a reason, understanding and appreciation of current medical conditions. Review of Systems Constitutional: DENIES: Diaphoretic episodes, Fatigue, Fever, Weight gain, Weight loss, Chills, Dizziness, Change in appetite, Night Sweats Endocrine: DENIES: Abnorml menstrual pattern, Heat/cold intolerance, Polydipsia , Polyuria, Polyphagia Eyes: DENIES: Blurred vision, Diplopia, Eye inflammation, Eye pain, Vision loss , Photosensitivity, Double Vision Ears, nose, mouth, throat: DENIES: Tinnitus, Hearing loss, Vertigo, Nasal discharge, Oral lesions, Throat pain, Hoarseness, Ear Pain, Running Nose, Epistaxis, Sinus Pain, Toothache, Odynophagia Respiratory: DENIES: Apneas, Cough, Snoring, Wheezing, Hemoptysis, Sputum production, Shortness of breath Cardiovascular: DENIES: Chest pain, Palpitations, Syncope, Dyspnea on Exertion , PND, Lower Extremity Edema, Orthopnea, Claudication Gastrointestinal: DENIES: Abdominal pain, Black stools, Bloody stools, Constipation, Diarrhea, Nausea, Vomiting, Difficulty Swallowing, Anorexia Genitourinary: DENIES: Abnormal vaginal bleeding, Dysmenorrhea, Dyspareunia, Sexual dysfunction, Urinary frequency, Urinary incontinence, Urgency, Hematuria , Dysuria, Nocturia, Vaginal discharge Musculoskeletal: DENIES: Joint pain, Muscle aches, Stiffness, Joint Swelling, Back pain, Neck pain Integumentary: DENIES: Abnormal pigmentation, Pruritus, Rash, Nail changes, Breast masses, Breast skin changes, Nipple discharge Hematologic/lymphatic: DENIES: Bruising, Lymphadenopathy Immunologic/allergic: DENIES: Eczema, Urticaria Neurologic: DENIES: Abnormal gait, Headache, Localized weakness, Paresthesias, Seizures, Speech Problems, Tremor, Poor Balance Psychiatric: DENIES: Anxiety, Confusion, Mood changes, Depression, Hallucinations, Agitation, Suicidal Ideation, Homicidal Ideation, Delusions Past Family Social History Coded Allergies: Sulfa (Sulfonamide Antibiotics) (Verified Allergy, Severe, HIVES, SWELLING , 02/06/18) gluten (Unverified Allergy, Severe, Cramping, 02/06/18) PT DESCRIBES SEVERE STOMACH CRAMPS AFTER EATING GLUTEN lactose (Unverified Allergy, Mild, Diarrhea, 02/06/18) meperidine (Unverified Adverse Reaction, Mild, nausea, 02/06/18) Active Scripts Levothyroxine (Synthroid) 100 Mcg Tab, 100 MCG PO DAILY@0600 for Thyroid, #31 TAB Prov:Harshad Chowdhury MD 02/19/[address] (Aspirin DR) 81 Mg Tabdr, 81 MG PO DAILY for Blood Clot Prevention, # 31 TAB Prov:Harshad Chowdhury MD 02/19/18 Reported Medications Montelukast (Montelukast) 10 Mg Tab, 10 MG PO HS, #30 TAB 0 Refills 02/16/18 Mirabegron (Myrbetriq) 50 Mg Tab, 50 MG PO DAILY for Urinary Symptom Managemen, #30 TAB 0 Refills 02/16/18 Potassium Chloride Microencaps (Klor-Con M10) 10 Meq Tab, 10 MEQ PO DAILY for Electrolyte Replacement, #30 TAB 0 Refills 02/16/18 Nedocromil Opth Drops (Alocril Opth Drops) 2 % Soln, 1-2 DROP EACH EYE BID for Allergies, #1 BOTTLE 0 Refills 02/16/18 Omeprazole (Omeprazole) 20 Mg Tab, 20 MG PO DAILY, #30 TAB 0 Refills 02/16/18 Bupropion HCl ER 24 HR (Bupropion HCl ER 24 HR) 300 Mg Tab, 300 MG PO DAILY for Control Depression, TAB 0 Refills 02/16/18 Sumatriptan (Imitrex) 100 Mg Tab, 100 MG PO DIRECTED Y for MIGRAINE HEADACHE , TAB 0 Refills If a satisfactory response has not been obtained at 2 hours, a second dose may be administered 02/16/18 Beclomethasone Inh (Qvar Inh) 80 Mcg/Act Aero, 1 PUFF INH BID for Asthma Management, #1 INHALER 0 Refills 02/16/18 Carvedilol ER 24 HR (Coreg Cr 24 HR) 20 Mg Cap, 20 MG PO DAILY, #30 CAP 0 Refills 02/16/18 Discontinued Reported Medications Cyproheptadine (Cyproheptadine) 4 Mg Tab, 4 MG PO HS for Allergy Management, # 90 TAB 0 Refills 02/16/18 Diazepam (Diazepam) 5 Mg Tab, 5 MG PO DAILY Y for ANXIETY, TAB 0 Refills 02/16/18 Levothyroxine (Synthroid) 100 Mcg Tab, 75 MCG PO DAILY for Thyroid, #30 TAB 0 Refills 02/16/18 Aspirin (Aspirin) 81 Mg Chew, 81 MG CHEW DAILY, TAB 0 Refills 08/21/17 Amitriptyline (Amitriptyline) 25 Mg Tab, 25 MG PO HS, TAB 08/21/17 Zolpidem (Zolpidem) 5 Mg Tab, 5 MG PO HS Y for INSOMNIA, TAB 0 Refills 08/21/17 Hydrocortisone (Cortef) 5 Mg Tab, 10 MG PO DAILY for ADRENAL INSUFFICIENCY, #60 TAB 0 Refills Take with food to decrease GI upset 10/28/16 Mirtazapine (Mirtazapine) 15 Mg Tab, 15 MG PO HS for Depression Control, #30 TAB 0 Refills 10/28/16 Sertraline (Zoloft) 50 Mg Tab, 50 MG PO DAILY, #30 TAB 0 Refills 10/28/16 Trospium ER (Trospium ER) 60 Mg Cap, 60 MG PO DAILY for Urinary Symptom Managemen, #30 CAP 0 Refills 10/28/16 Discontinued Scripts Cephalexin (Keflex) 500 Mg Capsule, 500 MG PO Q8H for Infection for 10 Days, # 30 CAP 0 Refills Prov:Dary Conti [employer]NAGER [employer] 01/23/18 Cephalexin (Keflex) 500 Mg Cap, 500 MG PO Q6H for Infection for 10 Days, #40 CAP 0 Refills Prov:Mindy Moses MANA[employer] 01/14/18 Current Medications Medications (Trade) Dose Ordered Sig/Roni Route Start Time Stop Time Status Last Admin (Nitrostat Sl) 0.4 mg Q5M PRN SL 02/16/18 15:15 (Cortef) 10 mg DAILY PO 02/17/18 09:00 02/18/18 09:28 (Cortef) 10 mg HS PO 02/16/18 21:00 02/17/18 20:43 (Cortef) 5 mg DAILY@1500 PO 02/17/18 15:00 02/17/18 15:53 (Coreg) 12.5 mg Q12HR PO 02/16/18 21:00 02/18/18 09:27 (Apresoline Inj) 10 mg Q6H PRN IV PUSH 02/16/18 15:30 (Catapres) 0.1 mg Q6H PRN PO 02/16/18 15:30 (Ecotrin Ec) 81 mg DAILY PO 02/17/18 09:00 02/18/18 09:28 (Albuterol Neb) 0.63 mg Q4HR NEB PRN NEB 02/16/18 15:30 (Synthroid) 100 mcg DAILY@0600 PO 02/17/18 06:00 02/18/18 04:43 (NS Flush) 2 ml UNSCH PRN IV FLUSH 02/16/18 15:30 (NS Flush) 2 ml BID IV FLUSH 02/16/18 21:00 02/18/18 09:29 (Tylenol) 650 mg Q4H PRN PO 02/16/18 15:30 (Zofran Odt) 4 mg Q6H PRN PO 02/16/18 15:30 (Heparin Inj) 5,000 units Q12H SQ 02/16/18 15:30 Future Hold 02/18/18 04:43 (Tylenol) 650 mg Q6H PRN PO 02/16/18 15:30 ([place] 5-325 Mg) 1 tab Q4H PRN PO 02/16/18 15:30 ([place] 7.5-325 Mg) 1 tab Q4H PRN PO 02/16/18 15:30 02/17/18 10:15 (Morphine Inj) 1 mg Q3H PRN IV PUSH 02/16/18 15:30 (Narcan Inj) 0.4 mg UNSCH PRN IV PUSH 02/16/18 15:30 (Miguelina-Colace) 1 tab BID PO 02/16/18 21:00 02/18/18 09:27 (Senokot) 17.2 mg Q12H PRN PO 02/16/18 15:30 (Dulcolax Supp) 10 mg DAILY PRN RECTAL 02/16/18 15:30 (Lactulose Liq) 30 ml DAILY PRN PO 02/16/18 15:30 Family Psych History No family psychiatric history Social History Patient was born and raised in [place], she lives alone in [place], she is , 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, supported 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, highest level of education is college Physical Exam Vital Signs Vital Signs Date Time Temp Pulse Resp B/P (MAP) Pulse Ox O2 Delivery O2 Flow Rate FiO2 02/18/18 12:03 57 02/18/18 12:00 97.9 18 142/68 (92) 97 02/16/18 20:48 Nasal Cannula 2.00 Lab Results Test 02/18/18 06:17 White Blood Count 6.5 TH/MM3 Red Blood Count 3.42 MIL/MM3 Hemoglobin 10.6 GM/DL Hematocrit 30.2 % Mean Corpuscular Volume 88.2 FL Mean Corpuscular Hemoglobin 31.0 PG Mean Corpuscular Hemoglobin Concent 35.1 % Red Cell Distribution Width 13.8 % Platelet Count 197 TH/MM3 Mean Platelet Volume 8.8 FL Neutrophils (%) (Auto) 83.6 % Lymphocytes (%) (Auto) 11.6 % Monocytes (%) (Auto) 3.8 % Eosinophils (%) (Auto) 0.4 % Basophils (%) (Auto) 0.6 % Neutrophils # (Auto) 5.4 TH/MM3 Lymphocytes # (Auto) 0.8 TH/MM3 Monocytes # (Auto) 0.3 TH/MM3 Eosinophils # (Auto) 0.0 TH/MM3 Basophils # (Auto) 0.0 TH/MM3 CBC Comment DIFF FINAL Differential Comment Blood Urea Nitrogen 21 MG/DL Creatinine 0.76 MG/DL Random Glucose 88 MG/DL Total Protein 5.8 GM/DL Albumin 2.6 GM/DL Calcium Level 8.5 MG/DL Phosphorus Level 2.7 MG/DL Magnesium Level 2.0 MG/DL Alkaline Phosphatase 63 U/L Aspartate Amino Transf (AST/SGOT) 22 U/L Alanine Aminotransferase (ALT/SGPT) 19 U/L Total Bilirubin 0.6 MG/DL Sodium Level 141 MEQ/L Potassium Level 3.5 MEQ/L Chloride Level 111 MEQ/L Carbon Dioxide Level 19.3 MEQ/L Anion Gap 11 MEQ/L Estimat Glomerular Filtration Rate 73 ML/MIN Date/Time Source Procedure Growth Status 02/16/18 12:51 Blood Peripheral Aerobic Blood Culture - Preliminary NO GROWTH IN 2 DAYS Resulted 02/16/18 12:51 Blood Peripheral Anaerobic Blood Culture - Preliminary NO GROWTH IN 2 DAYS Resulted Mental Status Examination Appearance: Appropriate Consciousness: Alert Orientation: x4 Motor Activity: Normal gait Speech: Unremarkable Language: Adequate Fund of Knowledge: Adequate Attention and Concentration: Adequate Memory: Unremarkable Mood: Appropriate Affect: Appropriate Thought Process & Associations: Intact Thought Content: Appropriate Hallucination Type: None Delusion Type: None Suicidal Ideation: No Suicidal Plan: No Suicidal Intention: No Homicidal Ideation: No Homicidal Plan: No Homicidal Intention: No Insight: Adequate Judgment: Adequate Assessment & Plan Problem List: (1) Psychological factor affecting cancer ICD Codes: C80.1 - Malignant (primary) neoplasm, unspecified; F54 - Psychological and behavioral factors associated with disorders or diseases classified elsewhere Assessment & Plan: Patient does not meet criteria for psychiatric admission. No psychotropics recommended. Patient has decision making capacity to participate in treatment and discharge plan at this moment. (2) Falls frequently ICD Codes: R29.6 - Repeated falls Status: Acute Assessment & Plan Estimated LOS: Tank Campbell MD February 18, 2018 14:59
--- NOTE | 2018-02-18 15:22 | HHI.PR ---
Subjective Remarks The patient denies chest pain or shortness of breath. Patient is also febrile, denies fevers or chills. Noted to be positive for orthostatic hypotension. Objective Vitals Vital Signs Date Time Temp Pulse Resp B/P (MAP) Pulse Ox O2 Delivery O2 Flow Rate FiO2 02/18/18 12:03 57 02/18/18 12:00 97.9 62 18 142/68 (92) 97 02/18/18 08:00 97.6 52 18 146/64 (91) 99 02/18/18 04:00 98.2 53 16 146/65 (92) 100 02/18/18 00:00 98.6 70 16 142/68 (92) 98 02/17/18 20:00 61 02/17/18 20:00 98.4 72 16 140/62 (88) 96 02/17/18 16:00 97.6 60 18 148/67 (94) 97 I/O 02/17/18 02/17/18 02/17/18 02/18/18 02/18/18 02/18/18 06:59 14:59 22:59 06:59 14:59 22:59 Intake Total 360 ml Balance 360 ml Intake Oral 360 ml # Voids 2 # Bowel Movements 1 Result Diagram: 02/18/18 0617 02/18/18 0617 Imaging Last 72 hours Impressions Cervical Spine MRI 02/17/18 0000 Signed Impressions: CONCLUSION: 1. Status post fusion at the C5-C6 level. 2. 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 T he patient has severe facet hypertrophy at this level. 3. Moderate narrowing of the thecal sac at the C3-C4 level and the C6-C7 level . 4. Mild narrowing of thecal sac at the C5-C6 level secondary to osteophytic ri dging on the left side. The disc is fused. Brain MRI 02/17/18 0000 Signed Impressions: CONCLUSION: 1. Diffuse bilateral cortical atrophy and chronic white matter changes. 2. No significant changes compared to the prior CT scans. Head CT 02/16/18 1110 Signed Impressions: CONCLUSION: 1. Generalized atrophy 2. Moderate to severe chronic white matter disease characteristic of small ves barrera ischemic changes. 3. No evidence of acute infarct, hemorrhage, mass or edema. Chest X-Ray 02/16/18 1110 Signed Impressions: CONCLUSION: No acute findings. Cervical Spine CT 02/16/18 1110 Signed Impressions: CONCLUSION: 1. Stable CT scan of the cervical spine compared to the prior study of 8. 2. No acute bony fracture. 3. No change in the anterior subluxation of C3 over C4. Shoulder X-Ray 02/16/18 0000 Signed Impressions: CONCLUSION: No acute findings. Mild degenerative change. Objective Remarks GENERAL: This is a well-nourished, well-developed patient, in no apparent distress. SKIN: No rashes, ecchymoses. Cool and dry. Healed lac frontal area HEAD: Normocephalic. No temporal or scalp tenderness. EYES: Pupils equal round and reactive. Extraocular motions intact. No scleral icterus. No injection or drainage. ENT: Nose without bleeding, purulent drainage or septal hematoma. Throat without erythema, tonsillar hypertrophy or exudate. Uvula midline. Airway patent. NECK: Trachea midline. No JVD or lymphadenopathy. Supple, nontender, no meningeal signs. CARDIOVASCULAR: Regular rate and rhythm without gallops, or rubs. RESPIRATORY: Clear to auscultation. Breath sounds equal bilaterally. No wheezes , rales, or rhonchi. GASTROINTESTINAL: Abdomen soft, non-tender, nondistended. No guarding. MUSCULOSKELETAL: Extremities without clubbing, cyanosis, or edema. No joint tenderness, effusion, or edema noted. No calf tenderness. Negative Homans sign bilaterally. Tender right shoulder with no swelling or redness limited range of motion secondary to pain NEUROLOGICAL: Awake and alert. Cranial nerves II through XII intact. Motor and sensory grossly within normal limits. Five out of 5 muscle strength in all muscle groups. Normal speech. A/P Problem List: (1) Recurrent falls ICD Code: R29.6 - Repeated falls Status: Acute Plan: History of recurrent falls, questionable syncope. Continue fall precautions. PT consulted. Appreciate recommendations. Physical therapy recommended rehab placement. Patient has positive orthostatic vital signs with drop of blood pressure from 145-103-111/53. Neurology consulted. Head CT showed generalized atrophy, moderate to severe chronic white matter disease characteristic of small vessel ischemic changes. No evidence of acute infarct, hemorrhage, mass or edema. EKG and reviewed by me showed this rhythm with a ventricular rate of 93 bpm, marked left axis deviation moderate T-wave abnormality consider lateral ischemia. Repeat EKG. Serial EKGs 2 obtained after initial did not show many changes other than the last EKG having a less accentuated T-wave inversion on lateral leads. Troponin negative 2. The patient is chest pain-free. Chest x-ray negative for acute findings. As per psychiatry the patient does have decision-making capacity to participate in treatment and discharge plan at this moment. (2) Contusion of right shoulder ICD Code: S40.011A - Contusion of right shoulder, initial encounter Plan: Shoulder x-ray does not show any acute findings. Continue pain control. Discontinue morphine sulfate and start oral Toradol. (3) Hypothyroidism ICD Code: E03.9 - Hypothyroidism, unspecified Plan: TSH very elevated at 23.600. Free T4 normal. Continue levothyroxine. Patient previously on levothyroxine 75 mcg p.o. daily. Continue levothyroxine 100 m p.o. daily. (4) Leukocytosis ICD Code: D72.829 - Elevated white blood cell count, unspecified Plan: Leukocytosis resolved. Likely reactive. Continue to monitor CBC. (5) Adrenal cortical insufficiency ICD Code: E27.40 - Unspecified adrenocortical insufficiency Plan: Continue Cortef. (6) CARLOS A (acute kidney injury) ICD Code: N17.9 - Acute kidney failure, unspecified Plan: Likely due to prerenal azotemia. Treated with IV fluids, now resolved and creatinine back to baseline at 0.85. (7) Metabolic acidosis ICD Code: E87.2 - Acidosis Plan: Suspect hyperchloremic metabolic acidosis. 5/24 dioxide improving after discontinuation of IV normal saline. (8) Anemia ICD Code: D64.9 - Anemia, unspecified Plan: Unclear etiology of the anemia. There is no reported melena or hematochezia. Normal MCV anemia. Check stool guaiac and check iron studies. Continue to monitor hemoglobin and if stable then will consider discharging patient. If iron deficiency anemia or coaxial positive then will consult GI. Transfuse as needed for hemoglobin less than 7 or symptomatic anemia. Assessment and Plan DVT prophylaxis: SCDs, hold chemoprophylaxis given downtrending hemoglobin. Discharge Planning Possible discharge in 1-2 days pending a stabilization of hemoglobin. Problem Qualifiers (1) Contusion of right shoulder: Qualified Codes: S40.011A - Contusion of right shoulder, initial encounter (2) Leukocytosis: Qualified Codes: D72.829 - Elevated white blood cell count, unspecified (3) Anemia: Qualified Codes: D64.9 - Anemia, unspecified Harshad Chowdhury MD February 18, 2018 15:22
[2018-02-18] MEDS: ACETAMINOPHEN/HYDROcodone 325 MG/7.5 MG TAB PO PRN (17:59)
[2018-02-19] VITALS: BP_SYST 147; BP_SYST 168; BP_DIAS 68; BP_DIAS 72; PULSE 55; PULSE 57; RESP 18; TEMP 97.4; TEMP 98.2; O2SAT 97
[2018-02-19 04:00] VITALS: BP 125/59; PULSE 58; RESP 18; TEMP 98.2; O2SAT 99
[2018-02-19] MEDS: LEVOTHYROXINE SODIUM 100 MCG TAB PO SCH (05:03)
[2018-02-19 07:52] VITALS: BP 147/65; PULSE 64; RESP 18; TEMP 97.4; O2SAT 98
[2018-02-19] MEDS: DOCUSATE SODIUM 50 MG/SENNA 8.6 MG TAB PO SCH (08:17)
[2018-02-19] MEDS: CARVEDILOL 12.5 MG TAB PO SCH (08:17)
[2018-02-19] MEDS: ASPIRIN EC 81 MG TABEC PO SCH (08:17)
[2018-02-19] MEDS: HYDROCORTISONE 10 MG TAB PO SCH (08:18)
[2018-02-19] MEDS: SODIUM CHLORIDE 0.9% FLUSH 10 ML FLUSH IV FLUSH SCH (08:18)
[2018-02-19 09:50] VITALS: O2SAT 98
[2018-02-19 10:34] LABS: HEMATOCRIT 30.4 % (35.0-46.0); HEMOGLOBIN 10.8 GM/DL (11.6-15.3); MEAN CELL VOLUME 86.2 FL (80.0-100.0); MEAN CORPUSCULAR HEMOGLOBIN 30.7 PG (27.0-34.0); MEAN CORPUSCULAR HGB CONC 35.6 % (32.0-36.0); MEAN PLATELET VOLUME 8.2 FL (7.0-11.0); PLATELET COUNT 209 TH/MM3 (150-450); RED BLOOD COUNT 3.53 MIL/MM3 (4.00-5.30); RED CELL DISTRIBUTION WIDTH 13.6 % (11.6-17.2); WHITE BLOOD COUNT 5.4 TH/MM3 (4.0-11.0)
[2018-02-19 10:44] LABS: TOTAL IRON BINDING CAPACITY 209 MCG/DL (250-450)
[2018-02-19 10:48] LABS: % SATURATION IRON PROFILE 36.9 % (20-50); FERRITIN 297 NG/ML (8-252); IRON (FE) 77 MCG/DL (50-170)
[2018-02-19] MEDS ORDERED: LEVO.1 PO (11:47)
[2018-02-19] MEDS ORDERED: ECASA81 PO (11:47)
--- NOTE | 2018-02-19 11:48 | HHI.DCPOC ---
Discharge Care Plan Diagnosis: (1) Recurrent falls (2) Contusion of right shoulder (3) Adrenal cortical insufficiency (4) Metabolic acidosis (5) CARLOS A (acute kidney injury) (6) Falls frequently (7) Anemia (8) HTN (hypertension) (9) Hypothyroidism Goals to Promote Your Health * To prevent worsening of your condition and complications * To maintain your health at the optimal level Directions to Meet Your Goals Take your medications as prescribed Follow your dietary instruction Follow activity as directed Keep your appointments as scheduled Take your immunizations and boosters as scheduled If your symptoms worsen call your PCP, if no PCP go to Urgent Care Center or Emergency Room Smoking is Dangerous to Your Health. Avoid second hand smoke Call the 24-hour hour crisis hotline for domestic abuse at Harshad Chowdhury MD February 19, 2018 11:48
--- NOTE | 2018-02-19 12:02 | HHI.DS ---
Discharge Summary Admission Date February 16, 2018 at 14:42 Discharge Date: February 19, 2018 Admitting Diagnosis Generalized weakness, renal insufficiency, leukocytosis (1) Recurrent falls ICD Code: R29.6 - Repeated falls Diagnosis: Principal Status: Chronic (2) Contusion of right shoulder ICD Code: S40.011A - Contusion of right shoulder, initial encounter Diagnosis: Principal Status: Resolved (3) Hypothyroidism ICD Code: E03.9 - Hypothyroidism, unspecified Diagnosis: Principal Status: Chronic (4) Leukocytosis ICD Code: D72.829 - Elevated white blood cell count, unspecified Diagnosis: Principal Status: Resolved (5) Adrenal cortical insufficiency ICD Code: E27.40 - Unspecified adrenocortical insufficiency Diagnosis: Principal Status: Chronic (6) CARLOS A (acute kidney injury) ICD Code: N17.9 - Acute kidney failure, unspecified Diagnosis: Principal Status: Resolved (7) Metabolic acidosis ICD Code: E87.2 - Acidosis Diagnosis: Principal Status: Acute (8) Anemia ICD Code: D64.9 - Anemia, unspecified Diagnosis: Principal Status: Chronic Procedures None Brief History - From Admission This is a 82-year-old female who was brought in by EMS for evaluation after fall. Police was requested for person check by her friend who had not seen her in the past 4 days. EMS found her house in disarray and patient lying on the ground. DCF was called to investigate. Patient does not recall entire events. She denies falling and passing out. States she was feeling weak like she was hit by a flu and was unable to get up. She complains of a right shoulder discomfort which is already improving. She does not think she was on the ground for 4 days. States she has been compliant with her medications. She is alert and oriented. Denies fever, chills, cough, abdominal pain, UTI symptoms and diarrhea. Patient was admitted over a month ago after sustaining a fall sustaining a facial laceration. In the emergency room trauma workup was negative for fractures. She was found to have acute kidney injury with acidosis and elevated CK and AST, leukocytosis, elevated TSH and blood pressure. All other systems reviewed negative CBC/BMP: 02/19/18 1013 02/18/18 0617 Significant Findings Laboratory Tests Test 02/16/18 12:18 02/16/18 12:52 02/16/18 19:40 02/16/18 23:45 Urine Protein 100 mg/dL (NEG-TRACE) Urine Ketones 40 mg/dL (NEG) Urine Mucus FEW /lpf (OCC) Troponin I LESS THAN 0.02 NG/ML LESS THAN 0.02 NG/ML Vitamin B12 Level GREATER THAN 2000 PG/ML Free Triiodothyronine (T3) pg/dL 0.81 PG/ML (2.18-3.98) Test 02/17/18 05:55 02/18/18 06:17 02/19/18 10:13 Red Blood Count 3.69 MIL/MM3 (4.00-5.30) 3.42 MIL/MM3 (4.00-5.30) 3.53 MIL/MM3 (4.00-5.30) Hemoglobin 11.5 GM/DL (11.6-15.3) 10.6 GM/DL (11.6-15.3) 10.8 GM/DL (11.6-15.3) Hematocrit 32.8 % (35.0-46.0) 30.2 % (35.0-46.0) 30.4 % (35.0-46.0) Neutrophils (%) (Auto) 87.5 % (16.0-70.0) 83.6 % (16.0-70.0) Lymphocytes (%) (Auto) 7.9 % (9.0-44.0) Neutrophils # (Auto) 8.8 TH/MM3 (1.8-7.7) Lymphocytes # (Auto) 0.8 TH/MM3 (1.0-4.8) 0.8 TH/MM3 (1.0-4.8) Blood Urea Nitrogen 26 MG/DL (7-18) 21 MG/DL (7-18) Calcium Level 8.3 MG/DL (8.5-10.1) Chloride Level 114 MEQ/L (98-107) 111 MEQ/L (98-107) Carbon Dioxide Level 17.6 MEQ/L (21.0-32.0) 19.3 MEQ/L (21.0-32.0) Estimat Glomerular Filtration Rate 64 ML/MIN (>89) 73 ML/MIN (>89) Total Protein 5.8 GM/DL (6.4-8.2) Albumin 2.6 GM/DL (3.4-5.0) Total Iron Binding Capacity 209 MCG/DL (250-450) Ferritin 297 NG/ML (8-252) Imaging Last Impressions Cervical Spine MRI 02/17/18 Signed Impressions: CONCLUSION: 1. Status post fusion at the C5-C6 level. 2. 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 T he patient has severe facet hypertrophy at this level. 3. Moderate narrowing of the thecal sac at the C3-C4 level and the C6-C7 level . 4. Mild narrowing of thecal sac at the C5-C6 level secondary to osteophytic ri dging on the left side. The disc is fused. Brain MRI 02/17/18 Signed Impressions: CONCLUSION: 1. Diffuse bilateral cortical atrophy and chronic white matter changes. 2. No significant changes compared to the prior CT scans. Head CT 02/16/181109 Signed Impressions: CONCLUSION: 1. Generalized atrophy 2. Moderate to severe chronic white matter disease characteristic of small ves barrera ischemic changes. 3. No evidence of acute infarct, hemorrhage, mass or edema. Chest X-Ray 02/16/181109 Signed Impressions: CONCLUSION: No acute findings. Cervical Spine CT 02/16/181109 Signed Impressions: CONCLUSION: 1. Stable CT scan of the cervical spine compared to the prior study of 8. 2. No acute bony fracture. 3. No change in the anterior subluxation of C3 over C4. Shoulder X-Ray 02/16/18 Signed Impressions: CONCLUSION: No acute findings. Mild degenerative change. PE at Discharge GENERAL: This is a well-nourished, well-developed patient, in no apparent distress. SKIN: No rashes, ecchymoses. Cool and dry. Healed lac frontal area HEAD: Normocephalic. No temporal or scalp tenderness. EYES: Pupils equal round and reactive. Extraocular motions intact. No scleral icterus. No injection or drainage. ENT: Nose without bleeding, purulent drainage or septal hematoma. Throat without erythema, tonsillar hypertrophy or exudate. Uvula midline. Airway patent. NECK: Trachea midline. No JVD or lymphadenopathy. Supple, nontender, no meningeal signs. CARDIOVASCULAR: Regular rate and rhythm without gallops, or rubs. RESPIRATORY: Clear to auscultation. Breath sounds equal bilaterally. No wheezes , rales, or rhonchi. GASTROINTESTINAL: Abdomen soft, non-tender, nondistended. No guarding. MUSCULOSKELETAL: Extremities without clubbing, cyanosis, or edema. No joint tenderness, effusion, or edema noted. No calf tenderness. Negative Homans sign bilaterally. Tender right shoulder with no swelling or redness limited range of motion secondary to pain NEUROLOGICAL: Awake and alert. Cranial nerves II through XII intact. Motor and sensory grossly within normal limits. Five out of 5 muscle strength in all muscle groups. Normal speech. Pt update on day of discharge The patient denies any melena or hematochezia. Denies any nausea vomiting. The patient feels overall weak. Denies fevers or chills. Hospital Course The patient was admitted to the medical floor monitor on telemetry. No arrhythmias were reported during his entire hospital stay. The patient has history of recurrent frequent falls, questionable syncope. PT was consulted recommended short-term rehab placement. The patient was positive orthostatic vital signs and it was found that her TSH was also very elevated. Patient had troponins which were negative 2 and the patient did not complain of the chest pain any point. EKG showed some sinus rhythm, marked left axis deviation, moderate T-wave abnormality. Chest x-ray was negative for acute findings. The patient has been refusing to be discharged to alf facility, patient' s son made a couple phone calls and was very concerned that the patient should not go home. Psychiatry was consulted to assess if the patient has capacity to make her own medical decisions. Psychiatry stated that the patient was capable of making decisions over her own own health and disposition plan. Patient also had contusion of the right shoulder. Shoulder x-ray did not show any acute findings. TSH was found to be very elevated at 23.6, free T4 normal. Levothyroxine dose was increased from 75 mcg p.o. daily to 100 mg p.o. daily. WBC noted to be elevated, likely reactive, immediately came down after the next day. CBC was monitored during hospital stay. Patient's Cortef was continued due to the patient's history of adrenal cortical insufficiency which is probably contributing to the patient's orthostatic hypotension. Acute kidney injury likely due to prerenal azotemia closely with IV fluids and resolved, creatinine went back to baseline at 0.8. Patient was also noted to have metabolic acidosis since carbon dioxide was down, however this was correcting slowly after administration of normal saline. Patient was found to have anemia. Upon review of previous labs patient has had chronic anemia. Studies were more consistent with anemia of chronic disease. Hemoglobin was trended and was stable on discharge on 10.8. Likely this was a true real number of the patient's hemoglobin since the patient might have been a little dehydrated on admission. Stool guaiac was ordered, however this was not done. Patient states that she has a gastroenterology which she can follow-up as an outpatient. The patient initially did not want to be discharged to a alf facility. After some talk and commented to her the benefits and that it would possibly benefit her on a positive way she accepted to be discharged to a alf facility. Pt Condition on Discharge: Stable Discharge Disposition: Discharge to SNF Discharge Time: > 30 minutes Discharge Instructions DIET: Follow Instructions for: Heart Healthy Diet Activities you can perform: See Additionl Instruction Other Activity Instructions: as per PT instructions OOB with assistance at all times Follow up Referrals: PCP Follow-up - 1 Week New Medications: Aspirin DR (Aspirin DR) 81 Mg Tabdr 81 MG PO DAILY for Blood Clot Prevention, #31 TAB Levothyroxine (Synthroid) 100 Mcg Tab 100 MCG PO DAILY@0600 for Thyroid, #31 TAB Continued Medications: Beclomethasone Inh (Qvar Inh) 80 Mcg/Act Aero 1 PUFF INH BID for Asthma Management, #1 INHALER 0 Refills Bupropion HCl ER 24 HR (Bupropion HCl ER 24 HR) 300 Mg Tab 300 MG PO DAILY for Control Depression, TAB 0 Refills Carvedilol ER 24 HR (Coreg Cr 24 HR) 20 Mg Cap 20 MG PO DAILY, #30 CAP 0 Refills Mirabegron (Myrbetriq) 50 Mg Tab 50 MG PO DAILY for Urinary Symptom Managemen, #30 TAB 0 Refills Montelukast (Montelukast) 10 Mg Tab 10 MG PO HS, #30 TAB 0 Refills Nedocromil Opth Drops (Alocril Opth Drops) 2 % Soln 1-2 DROP EACH EYE BID for Allergies, #1 BOTTLE 0 Refills Omeprazole (Omeprazole) 20 Mg Tab 20 MG PO DAILY, #30 TAB 0 Refills Potassium Chloride Microencaps (Klor-Con M10) 10 Meq Tab 10 MEQ PO DAILY for Electrolyte Replacement, #30 TAB 0 Refills Sumatriptan (Imitrex) 100 Mg Tab 100 MG PO DIRECTED PRN for MIGRAINE HEADACHE, TAB 0 Refills If a satisfactory response has not been obtained at 2 hours, a second dose may be administered Discontinued Medications: Cyproheptadine (Cyproheptadine) 4 Mg Tab 4 MG PO HS for Allergy Management, #90 TAB 0 Refills Diazepam (Diazepam) 5 Mg Tab 5 MG PO DAILY PRN for ANXIETY, TAB 0 Refills Levothyroxine (Synthroid) 100 Mcg Tab 75 MCG PO DAILY for Thyroid, #30 TAB 0 Refills Harshad Chowdhury MD February 19, 2018 12:02
== END 2018-02-19 16:08 | DRG 683 ==
LOC: NEPE 10:52 → NEDA 14:42 → N05A 17:12
PROVIDERS: ADMIT Hospitalist; ATTEND Hospitalist
DX: N17.9 Acute kidney failure, unspecified (principal); M62.82 Rhabdomyolysis; E87.2 Acidosis; E27.40 Unspecified adrenocortical insufficiency; S40.011A Contusion of right shoulder, initial encounter; W19.XXXA Unspecified fall, initial encounter; Y92.009 Unspecified place in unspecified non-institutional (private) residence as the place of occurrence of the external cause; D64.9 Anemia, unspecified; I10 Essential (primary) hypertension; E03.9 Hypothyroidism, unspecified; K58.9 Irritable bowel syndrome, unspecified; K21.9 Gastro-esophageal reflux disease without esophagitis; F32.9 Major depressive disorder, single episode, unspecified; F41.9 Anxiety disorder, unspecified; N32.81 Overactive bladder; G43.909 Migraine, unspecified, not intractable, without status migrainosus; J45.909 Unspecified asthma, uncomplicated; R29.6 Repeated falls; Z98.1 Arthrodesis status
CPT/HCPCS: 70450; 70551; 71045; 72125; 72141; 73030; 80048; 80053; 81001; 82550; 82552; 82607; 82728; 83540; 83550; 83605; 83735; 84100; 84132; 84439; 84443; 84481; 84484; 85025; 85027; 85610; 85652; 85730; 87040; 93005; 95819; 96360; J1644; J7030; P9612